=== PATIENT | female | born 1980 | race Caucasian/White ===

== ENCOUNTER 2020-04-29 09:38 | Outpatient (REF) | payer MEDICAID, SELFPAY | END 2020-04-29 09:39 | disposition home or self-care (01) | LOC: HO.LAB 09:38 | PROVIDERS: Visit Provider Internal Medicine | DX: Z20.822 Contact with and (suspected) exposure to COVID-19 (principal) | CPT/HCPCS: 36415; C9803; U0003; U0005 ==

== ENCOUNTER 2022-07-26 05:58 | Inpatient (IN) | payer MEDICAID, SELFPAY ==
[2022-07-26] VITALS (9 sets, daily range): BP systolic 110–200; BP diastolic 58–112; PULSE 64–144; RESP 12–20; TEMP 36.4–36.9; O2SAT 96–100; BMI 31.6
--- NOTE | 2022-07-26 | ECG_ITS ---
Test Reason : PREVIOUS WITH PROLONGED QTC AND T-WAVE INVERSION Blood Pressure : / mmHG Vent. Rate : 071 BPM Atrial Rate : 071 BPM P-R Int : 148 ms QRS Dur : 088 ms QT Int : 452 ms P-R-T Axes : 062 059 041 degrees QTc Int : 491 ms Normal sinus rhythm with sinus arrhythmia Nonspecific ST abnormality Prolonged QT Abnormal ECG When compared with ECG of 26-JUL-2022 07:19, Nonspecific T wave abnormality no longer evident in Lateral leads Referred By: Alex Gilbert Electronically Signed By:Rolan Arthur
[2022-07-26] MEDS: 0.9 % Sodium Chloride 1,000 ML 999 ML IV (06:30)
[2022-07-26] MEDS: ondansetron HCL 4 MG/2 ML VIAL IVPUSH (06:30)
--- NOTE | 2022-07-26 06:31 | PC.NURSE ---
Addendum entered by Perfecto Smart RN 07/26/22 06:34: Pt endorses IVDU with last heroin use around midnight, 2 bags. Denies marijuana use. 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 Original Note: Assumed care of pt. Pt transfered to stretcher under own power. IV established, no labs could be drawn, but flushes well. Medications ordered per MD and administered. Plan for MD assessment and further orders. Pt lying on stretcher, improved nausea with medication and fluids. WCTM.
--- NOTE | 2022-07-26 06:40 | ED_ITS ---
HPI - General Adult General Chief complaint: Abdominal Pain Stated complaint: abd pain Time Seen by Provider: 07/26/22 06:34 Source: patient and EMS Mode of arrival: EMS Limitations: no limitations History of Present Illness HPI narrative: Patient is a 42 year old assigned female at with a history of IV drug use, alcohol abuse, and recent UTI presenting to the emergency department today with nausea and vomiting. Patient states that she last used heroin 5 hours ago and has been vomiting for awhile since. Patient states that she was given antibiotics for her UTI at [facility] and she finished them but she is unsure what they were or when she would have finished them. Patient states that she is having epigastric pain that started after she began vomiting. Patient denies any dizziness, lightheadedness, fever, chills, blurry vision, double vision, loss of vision, chest pain, difficulty breathing, shortness of breath, back pain, night sweats, pain with urination, increased urinary frequency, increased urinary urgency, blood in her urine or stool, syncope or a near syncopal episode, recent trauma or falls, bowel incontinence, bladder incontinence, bowel retention, bladder retention, or any other complaints at this time. Onset (ago): hour(s) Location: abdomen Radiation: non-radiation Severity: mild Severity scale (1-10): 3 Quality: aching and dull Pain Consistency: constant Relieving factors: none Exacerbating factors: none Associated symptoms: nausea/vomiting Treatments prior to arrival: other (ABX) Related Data Home Medications Medication Instructions Recorded Confirmed acamprosate 333 mg tablet,delayed 666 mg PO BID 07/26/22 07/26/22 release clonidine HCl 0.2 mg tablet 0.2 mg PO BID 07/26/22 07/26/22 omeprazole 20 mg capsule,delayed 20 mg PO DAILY@0630 07/26/22 07/26/22 release ondansetron 4 mg disintegrating 4 mg PO Q8H PRN nausea 07/26/22 07/26/22 tablet sucralfate 100 mg/mL oral 10 ml PO Q6H PRN Nausea 07/26/22 07/26/22 suspension (Carafate) Allergies Allergy/AdvReac Type Severity Reaction Status Date / Time No Known Allergies Allergy Unverified 11/05/19 14:41 Review of Systems Constitutional: Constitutional: Reports no additional constitutional complaints, Denies chills, Denies fever(s) and Denies night sweats Eyes: Eyes: Reports no additional eye complaints, Denies blurry vision, Denies change in vision, Denies diplopia, Denies eye discharge, Denies loss of vision and Denies eye pain ENT: Denies dizziness Cardiovascular: Cardiovascular: Reports no additional cardiovascular complaints, Denies chest pain, Denies lightheadedness, Denies Loss of Consciousness and Denies dyspnea Respiratory: Respiratory: Reports no additional respiratory complaints and Denies dyspnea Gastrointestinal: Gastrointestinal: Reports no additional gastrointestinal complaints, Reports abdominal pain, Denies melena, Denies hematochezia, Denies change in bowel habits, Denies change in stool character, Reports vomiting and Denies hematemesis Genitourinary: Genitourinary: Denies hematuria, Denies urinary frequency, Denies dysuria, Denies urinary incontinence, Denies urinary hesitancy and Denies urinary urgency Musculoskeletal: Musculoskeletal: Reports no additional musculoskeletal complaints, Denies numbness and Denies tingling Neurologic: Denies dizziness, Denies loss of vision, Denies numbness and Denies tingling Psychiatric: Psychiatric: Reports no additional psychiatric complaints Endocrine: Endocrine: Reports no additional endocrine complaints Hematologic/Lymphatic: Hematologic/Lymphatic: Reports no additional hematologic/lymphatic complaints Allergic/Immunologic: Allergic/Immunologic: Reports no additional allergic/immunologic complaints PMFSH Past Medical History Attestation statement: The following information was validated with the patient. Source: old records reviewed and nursing notes reviewed Social History Social History Alcohol intake: current Alcohol intake frequency: 3 or more drinks per day Alcohol type: hard liquor Smoked in Last 30 Days: Yes Use of substances other than those prescribed or required for medical reasons: Yes Substance Use Type: Crack/Cocaine and Heroin Substance Use Frequency: Chronic Longstanding Advance Directives: No Advance Directives Information Provided: No Patient : No Physical Exam ED Vital Signs: Vital Signs - 24 hr 07/26/22 06:02 07/26/22 07:04 Temperature 98.2 F Pulse Rate 86 64 Respiratory Rate 18 14 Blood Pressure 143/77 H 156/72 H Pulse Oximetry 100 96 Oxygen Delivery Method Room Air Room Air BMI result Body Mass Index 31.6 Const General: cooperative, no acute distress, alert and awake Nutritional Appearance: well nourished Orientation/consciousness: patient oriented x3 Limitations: no limitations HENMT Head: Yes normal to inspection and Yes atraumatic Ears: hearing grossly normal bilaterally and external ears normal General nose exam: Normal external nose present, no nasal discharge noted and no epistaxis Face and sinus: Yes normal facial exam, No abrasion and No laceration Mouth: Normal oral and palatal mucosa present, no drooling and no muffled voice Eyes General: appearance normal, both eyes and all related structures Periorbital: periorbital findings normal Eyelids: Yes eyelids normal Conjunctivae: conjunctivae normal Pupils: Equal, round and reactive pupils present EOM: EOMs intact bilaterally Neck Neck: Yes normal visual inspection, Yes full ROM and Yes no lymphadenopathy Chest Chest palpation & inspection: normal inspection of the chest Resp Effort & Inspection: normal respiratory effort and able to speak in complete sentences Cardio Rate: regular rate Rhythm: regular rhythm GI Inspection: Yes normal to inspection Palpation (GI): Soft to palpation, not firm, nontender and no guarding Neuro General: patient oriented x3 and moves all extremities Cranial nerves: Yes Equal, round and reactive pupils present Cognition (Neuro): normal cognition Motor exam (neuro): 5/5 motor strength present throughout Sensory Exam: Normal double simultaneous stimulation for sensation Coordination: [id number] test normal Extrem Other: bilateral arms have various bruising in various stages of heeling and track fuentes General: Yes full ROM and Yes capillary refill normal Psych Appearance: grossly normal Mental Status: mental status grossly normal Affect: normal affect Attitude: cooperative Thought process: Normal thought process present Thought content: Normal thought content present Insight: Good insight present (Psych) Medications Administered Generic Name Dose Route Start Last Admin Trade Name Jessika PRN Reason Stop Dose Admin Clonidine HCl 0.2 mg 07/26/22 12:30 07/26/22 13:06 Clonidine Hcl 0.2 Mg Tablet PO 0.2 mg BID JESÚS Administration Protocol Enoxaparin Sodium 40 mg 07/26/22 12:00 07/26/22 13:06 Enoxaparin Sodium 40 Mg/0.4 Ml Syringe SUBCUT 40 mg Q24H JESÚS Administration Folic Acid 1 mg 07/26/22 12:05 07/26/22 13:06 Folic Acid 1 Mg Tablet PO 07/29/22 12:04 1 mg DAILY JESÚS Administration Morphine Sulfate 4 mg 07/26/22 11:57 07/26/22 13:01 Morphine Sulfate 4 Mg/Ml Cartridge IVPUSH 4 mg Q4H PRN Administration Pain, Severe (Pain Scale 7-10) Protocol Multivitamins/Vitamin C 1 tab 07/26/22 12:05 07/26/22 13:06 Multivitamin Tablet PO 07/29/22 12:04 1 tab DAILY JESÚS Administration Thiamine HCl 100 mg 07/26/22 12:05 07/26/22 13:06 Thiamine Hcl 100 Mg Tablet PO 07/29/22 12:04 100 mg DAILY JESÚS Administration Discontinued Medications Generic Name Dose Route Start Last Admin Trade Name Freq PRN Reason Stop Dose Admin Sodium Chloride 1,000 mls @ 999 mls/hr 07/26/22 06:30 07/26/22 07:48 Ns IV 07/26/22 07:30 Infused .Q1H1M JESÚS Infusion Magnesium Sulfate 2 gm in 50 mls @ 25 mls/hr 07/26/22 07:13 07/26/22 10:18 Magnesium Sulfate/H2o IV 07/26/22 09:12 Infused ONCE ONE Infusion Potassium Chloride 10 meq in 100 mls @ 100 mls/hr 07/26/22 07:30 07/26/22 12:26 Potassium Chloride/H20 IV 07/26/22 11:29 100 mls/hr Q1H JESÚS Administration Lorazepam 2 mg 07/26/22 06:41 07/26/22 06:46 Lorazepam 2 Mg/Ml Vial IVPUSH 07/26/22 06:42 2 mg ONCE ONE Administration Ondansetron HCl 4 mg 07/26/22 06:17 07/26/22 06:30 Ondansetron Hcl 4 Mg/2 Ml Vial IVPUSH 07/26/22 06:18 4 mg ONCE ONE Administration Pantoprazole Sodium 40 mg 07/26/22 08:09 07/26/22 08:26 Pantoprazole Sodium 40 Mg/10 Ml Vial IVPUSH 07/26/22 08:10 40 mg ONCE ONE Administration Medical Decision Making Medical Decision Making MDM Narrative: Patient is a 42 year old assigned female at with a history of IV drug use and alcohol use presenting to the emergency department today with epigastric pain, nausea and vomiting. Patient's physical exam was as noted in the physical exam portion of this chart. Patient's blood work showed hypokalemia at 2.8 and hypomagensemia of 1.1. Patient's urine showed no acute process. Patient's EKG showed new QT prolongation. I spoke to the hospitalist who agreed to admission. Patient was given IV magnesium and IV potassium. I explained my physical exam findings as well as all test results to the patient. I answered all questions asked by the patient. Patient verbalized agreement and understanding with this treatment plan and admission. Differential Diagnosis Differential Diagnoses: The differential diagnosis associated with the presentation includes drug use, alcohol abuse, hypomagnesemia, hypokalemia Admission/Observation Consideration of admission/observation: Escalation of care including admission/observation considered This patient is being admitted to the hospital. Consult Healthcare Provider Management of the patient was discussed with: Hospitalist (Agreed to admission.) Lab Data [facility] Lab Attestation statement: I reviewed the patient's lab results. My interpretation of these studies and their corresponding values is detailed in the [facility] portion of this chart. 07/26/22 06:41 07/26/22 06:41 Labs: Lab Results 07/26/22 07/26/22 07/26/22 Range/Units 06:41 06:41 06:41 WBC 5.8 (4.8-10.8) X10*3/uL RBC 2.38 L (4.20-5.50) X10*6/uL Hgb 10.3 L (12.0-16.0) g/dl Hct 28.7 L (37.0-47.0) % MCV 120.6 H (80.0-98.0) fL MCH 43.3 H (27.0-33.0) pg MCHC 35.9 H (31.0-35.0) g/dl RDW 13.9 (11.0-16.0) % Plt Count 195 (160-400) X10*3/uL MPV 9.7 (9.4-12.3) fL Immature Gran % (Auto) 0.7 H (0.0-0.4) % Neut % (Auto) 66.7 (45-73) % Lymph % (Auto) 25.0 (20-40) % [place] % (Auto) 7.1 (2-11) % Eos % (Auto) 0.3 (0-4) % Baso % (Auto) 0.2 (0-2) % Lymph # (Auto) 1.4 (1.2-4.9) X10*3/uL [place] # (Auto) 0.4 (0.1-1.2) X10*3/uL Eos # (Auto) 0.0 (0.0-0.4) X10*3/uL Baso # (Auto) 0.0 (0.0-0.2) X10*3/uL Abs Immat Gran (auto) 0.04 H (0.00-0.03) X10*3/uL Absolute Neuts (auto) 3.8 (2.0-8.3) x10*3/uL Absolute Nucleated RBC 0.000 (0.0-0.012) X10*3/uL Nucleated RBC % (auto) 0.0 (0.0-0.2) /100WBC Sodium 138 (135-145) mmol/L Potassium 2.8 L (3.3-5.1) mmol/L Chloride 97 (96-108) mmol/L Carbon Dioxide 27 (22-29) mmol/L Anion Gap 17 (12-20) BUN 11 (9-16) mg/dL Creatinine 0.79 (0.5-1.4) mg/dL Estim Creat Clear Calc 97.9 Estimated GFR > 60 Random Glucose 124 H (60-115) mg/dL Calcium 9.4 (8.4-10.2) mg/dL Magnesium 1.1 L* (1.6-2.6) mg/dL Total Bilirubin 1.4 H (0.0-1.0) mg/dL Direct Bilirubin 0.7 H (0.0-0.5) mg/dL AST 25 (5-31) U/L ALT 11 (0-31) U/L Alkaline Phosphatase 94 (39-117) U/L Troponin I High Sens (<3.5-17.0) ng/L B-Natriuretic Peptide 13 (<100) pg/mL Total Protein 7.5 (6.5-8.0) g/dL Albumin 3.5 (3.5-5.0) g/dL Lipase 17 (8-78) U/L Vitamin B12 377 (200-900) pg/mL Folate 2.3 L (> or = 4.0) ng/mL Beta HCG, Quant < 2 mIU/mL Urine Color Urine Appearance Urine pH (5.0-9.0) Ur Specific [place] (1.005-1.025) Urine Protein (Neg-Trace) mg/dL Urine Glucose (UA) (Negative) mg/dL Urine Ketones (Negative) mg/dL Urine Blood (Negative) Urine Nitrite (Negative) Ur Leukocyte Esterase (Negative) Urine RBC (0-2) /HPF Urine WBC (0-5) /HPF Ur Squamous Epith Cells (0-2) /HPF Urine Bacteria (None Seen) Hyaline Casts (0-2) /LPF Urine Test (NEGATIVE) Urine Opiates Screen (Not Detect) Urine Fentanyl Screen (Not Detect) Ur Barbiturates Screen (Not Detect) Ur Phencyclidine Scrn (Not Detect) Ur Amphetamines Screen (Not Detect) U Benzodiazepines Scrn (Not Detect) Urine Cocaine Screen (Not Detect) U Marijuana (THC) Screen (Not Detect) Ethyl Alcohol < 10 mg/dL 07/26/22 07/26/22 07/26/22 Range/Units 08:27 08:27 08:27 WBC (4.8-10.8) X10*3/uL RBC (4.20-5.50) X10*6/uL Hgb (12.0-16.0) g/dl Hct (37.0-47.0) % MCV (80.0-98.0) fL MCH (27.0-33.0) pg MCHC (31.0-35.0) g/dl RDW (11.0-16.0) % Plt Count (160-400) X10*3/uL MPV (9.4-12.3) fL Immature Gran % (Auto) (0.0-0.4) % Neut % (Auto) (45-73) % Lymph % (Auto) (20-40) % [place] % (Auto) (2-11) % Eos % (Auto) (0-4) % Baso % (Auto) (0-2) % Lymph # (Auto) (1.2-4.9) X10*3/uL [place] # (Auto) (0.1-1.2) X10*3/uL Eos # (Auto) (0.0-0.4) X10*3/uL Baso # (Auto) (0.0-0.2) X10*3/uL Abs Immat Gran (auto) (0.00-0.03) X10*3/uL Absolute Neuts (auto) (2.0-8.3) x10*3/uL Absolute Nucleated RBC (0.0-0.012) X10*3/uL Nucleated RBC % (auto) (0.0-0.2) /100WBC Sodium (135-145) mmol/L Potassium (3.3-5.1) mmol/L Chloride (96-108) mmol/L Carbon Dioxide (22-29) mmol/L Anion Gap (12-20) BUN (9-16) mg/dL Creatinine (0.5-1.4) mg/dL Estim Creat Clear Calc Estimated GFR Random Glucose (60-115) mg/dL Calcium (8.4-10.2) mg/dL Magnesium (1.6-2.6) mg/dL Total Bilirubin (0.0-1.0) mg/dL Direct Bilirubin (0.0-0.5) mg/dL AST (5-31) U/L ALT (0-31) U/L Alkaline Phosphatase (39-117) U/L Troponin I High Sens (<3.5-17.0) ng/L B-Natriuretic Peptide (<100) pg/mL Total Protein (6.5-8.0) g/dL Albumin (3.5-5.0) g/dL Lipase (8-78) U/L Vitamin B12 (200-900) pg/mL Folate (> or = 4.0) ng/mL Beta HCG, Quant mIU/mL Urine Color Dark Yellow Urine Appearance Clear Urine pH 6.0 (5.0-9.0) Ur Specific [place] 1.025 (1.005-1.025) Urine Protein Trace (Neg-Trace) mg/dL Urine Glucose (UA) Negative (Negative) mg/dL Urine Ketones 15 (Negative) mg/dL Urine Blood Moderate (2+) H (Negative) Urine Nitrite Positive H (Negative) Ur Leukocyte Esterase Small (1+) H (Negative) Urine RBC 3-5 H (0-2) /HPF Urine WBC 0-5 (0-5) /HPF Ur Squamous Epith Cells 6-10 (0-2) /HPF Urine Bacteria 1+ (None Seen) Hyaline Casts 3-5 (0-2) /LPF Urine Test NEGATIVE (NEGATIVE) Urine Opiates Screen POSITIVE H (Not Detect) Urine Fentanyl Screen POSITIVE H (Not Detect) Ur Barbiturates Screen Not Detected (Not Detect) Ur Phencyclidine Scrn Not Detected (Not Detect) Ur Amphetamines Screen Not Detected (Not Detect) U Benzodiazepines Scrn Not Detected (Not Detect) Urine Cocaine Screen POSITIVE H (Not Detect) U Marijuana (THC) Screen Not Detected (Not Detect) Ethyl Alcohol mg/dL 07/26/22 Range/Units 09:44 WBC (4.8-10.8) X10*3/uL RBC (4.20-5.50) X10*6/uL Hgb (12.0-16.0) g/dl Hct (37.0-47.0) % MCV (80.0-98.0) fL MCH (27.0-33.0) pg MCHC (31.0-35.0) g/dl RDW (11.0-16.0) % Plt Count (160-400) X10*3/uL MPV (9.4-12.3) fL Immature Gran % (Auto) (0.0-0.4) % Neut % (Auto) (45-73) % Lymph % (Auto) (20-40) % [place] % (Auto) (2-11) % Eos % (Auto) (0-4) % Baso % (Auto) (0-2) % Lymph # (Auto) (1.2-4.9) X10*3/uL [place] # (Auto) (0.1-1.2) X10*3/uL Eos # (Auto) (0.0-0.4) X10*3/uL Baso # (Auto) (0.0-0.2) X10*3/uL Abs Immat Gran (auto) (0.00-0.03) X10*3/uL Absolute Neuts (auto) (2.0-8.3) x10*3/uL Absolute Nucleated RBC (0.0-0.012) X10*3/uL Nucleated RBC % (auto) (0.0-0.2) /100WBC Sodium (135-145) mmol/L Potassium (3.3-5.1) mmol/L Chloride (96-108) mmol/L Carbon Dioxide (22-29) mmol/L Anion Gap (12-20) BUN (9-16) mg/dL Creatinine (0.5-1.4) mg/dL Estim Creat Clear Calc Estimated GFR Random Glucose (60-115) mg/dL Calcium (8.4-10.2) mg/dL Magnesium (1.6-2.6) mg/dL Total Bilirubin (0.0-1.0) mg/dL Direct Bilirubin (0.0-0.5) mg/dL AST (5-31) U/L ALT (0-31) U/L Alkaline Phosphatase (39-117) U/L Troponin I High Sens < 2.7 (<3.5-17.0) ng/L B-Natriuretic Peptide (<100) pg/mL Total Protein (6.5-8.0) g/dL Albumin (3.5-5.0) g/dL Lipase (8-78) U/L Vitamin B12 (200-900) pg/mL Folate (> or = 4.0) ng/mL Beta HCG, Quant mIU/mL Urine Color Urine Appearance Urine pH (5.0-9.0) Ur Specific [place] (1.005-1.025) Urine Protein (Neg-Trace) mg/dL Urine Glucose (UA) (Negative) mg/dL Urine Ketones (Negative) mg/dL Urine Blood (Negative) Urine Nitrite (Negative) Ur Leukocyte Esterase (Negative) Urine RBC (0-2) /HPF Urine WBC (0-5) /HPF Ur Squamous Epith Cells (0-2) /HPF Urine Bacteria (None Seen) Hyaline Casts (0-2) /LPF Urine Test (NEGATIVE) Urine Opiates Screen (Not Detect) Urine Fentanyl Screen (Not Detect) Ur Barbiturates Screen (Not Detect) Ur Phencyclidine Scrn (Not Detect) Ur Amphetamines Screen (Not Detect) U Benzodiazepines Scrn (Not Detect) Urine Cocaine Screen (Not Detect) U Marijuana (THC) Screen (Not Detect) Ethyl Alcohol mg/dL Independent Interpretation I performed an independent interpretation of an: EKG Interpretation: Vent. Rate: 078 BPM ? ? Atrial Rate: 078 BPM P-R Int: 142 ms? QRS Dur: 092 ms QT Int: 450 ms ? ? ? P-R-T Axes: 053 046 021 degrees QTc Int: 513 ms ? Normal sinus rhythm with sinus arrhythmia Cannot rule out Inferior infarct , age undetermined Prolonged QT Abnormal ECG When compared with ECG of 13-MAR-2018 14:49, T wave inversion now evident in Inferior leads Nonspecific T wave abnormality now evident in Anterolateral leads QT has lengthened DD/ [id number] Independent Historian Clinical information obtained from an independent historian. History obtained from or confirmed by: EMS (EMS provided additional history and confirmed the history provided by the patient.) Chronic Conditions Patient?s care impacted by: Other (alcoholism, IV drug use) Critical Care Time Critical Care Time Critical Care Time: Yes Total Critical Care Time: 30 Attestation: I spent 30 minutes of Critical Care Time with this patient. This does not include time spent on separately reported billable procedures. Discharge Plan Discharge Clinical Impression: Hypokalemia, Hypomagnesemia, QT prolongation Patient Disposition: Admitted As Inpatient
[2022-07-26 06:45] LABS: MANUAL DIFF FLAG NO
[2022-07-26] MEDS: LORazepam 2 MG/ML VIAL IVPUSH (06:46)
[2022-07-26 07:10] LABS: Alanine Aminotransferase 11 U/L (0-31); Albumin Level 3.5 g/dL (3.5-5.0); Alkaline Phosphatase 94 U/L (39-117); Anion Gap 17 (12-20); Aspartate Amino Transferase 25 U/L (5-31); Bilirubin Direct 0.7 mg/dL (0.0-0.5); Bilirubin Total 1.4 mg/dL (0.0-1.0); Blood Urea Nitrogen 11 mg/dL (9-16); Calcium 9.4 mg/dL (8.4-10.2); Carbon Dioxide 27 mmol/L (22-29); Chloride 97 mmol/L (96-108); Creatinine Clr Calc Pharmacy 97.9; Estimated Glomerular Filt Rate > 60; Ethanol < 10 mg/dL; Glucose Random 124 mg/dL (60-115); Lipase 17 U/L (8-78); Potassium 2.8 mmol/L (3.3-5.1); Sodium 138 mmol/L (135-145); Total Protein 7.5 g/dL (6.5-8.0)
[2022-07-26 07:13] LABS: Magnesium 1.1 mg/dL (1.6-2.6)
--- NOTE | 2022-07-26 07:13 | ECG_ITS ---
Test Reason : hypomag Blood Pressure : / mmHG Vent. Rate : 078 BPM Atrial Rate : 078 BPM P-R Int : 142 ms QRS Dur : 092 ms QT Int : 450 ms P-R-T Axes : 053 046 021 degrees QTc Int : 513 ms Normal sinus rhythm with sinus arrhythmia Anterolateral ST depressions- consider [place] Prolonged QT Abnormal ECG When compared with ECG of 13-MAR-2018 14:49, Anterolateral ischemic appearing changes QT has lengthened Referred By: Nat Dougherty Electronically Signed By:Rolan Arthur
[2022-07-26 07:30] LABS: Basophils Percent Auto 0.2 % (0-2); Eosinophils Percent Auto 0.3 % (0-4); Hematocrit 28.7 % (37.0-47.0); Hemoglobin 10.3 g/dl (12.0-16.0); Imm Gran Abs Auto 0.04 X10*3/uL (0.00-0.03); Imm Gran Pct Auto 0.7 % (0.0-0.4); Lymphocytes Absolute Auto 1.4 X10*3/uL (1.2-4.9); Mean Corpuscular HGB Conc 35.9 g/dl (31.0-35.0); Mean Corpuscular Hemoglobin 43.3 pg (27.0-33.0); Mean Platelet Volume 9.7 fL (9.4-12.3); Monocytes Absolute Auto 0.4 X10*3/uL (0.1-1.2); Monocytes Percent Auto 7.1 % (2-11); Neutrophils Absolute Auto 3.8 x10*3/uL (2.0-8.3); Neutrophils Percent Auto 66.7 % (45-73); Platelet Count 195 X10*3/uL (160-400); Red Blood Count 2.38 X10*6/uL (4.20-5.50); Red Cell Distribution Width 13.9 % (11.0-16.0); White Blood Count 5.8 X10*3/uL (4.8-10.8)
[2022-07-26 07:39] LABS: Mean Corpuscular Volume 120.6 fL (80.0-98.0)
[2022-07-26] MEDS: Magnesium Sulfate/H2O 2 GM/50 ML PIGGYBACK IV ×2 (07:46→13:36)
[2022-07-26] MEDS: Pantoprazole Sodium 40 MG/10 ML VIAL IVPUSH ×2 (08:26→16:57)
[2022-07-26] MEDS: Potassium Chloride/H20 10 MEQ/100 ML PIGGYBACK 100 MEQ IV ×4 (08:27→12:26)
[2022-07-26 08:28] LABS: HCG Quantitative < 2 mIU/mL
[2022-07-26 08:50] LABS: Amphetamine Screen Urine Not Detected (Not Detect); Barbiturates, Urine Not Detected (Not Detect); Benzodiazepines Screen Urine Not Detected (Not Detect); Cannabinoid Screen Urine Not Detected (Not Detect); Cocaine Screen Urine POSITIVE (Not Detect); Fentanyl, urine POSITIVE (Not Detect); Opiate Screen Urine POSITIVE (Not Detect); Phencyclidine Screen Urine Not Detected (Not Detect)
[2022-07-26 09:18] LABS: Appearance Urine Clear; Color Urine Dark Yellow; Glucose Urine UA Negative (Negative); Leukocyte Esterase Urine Small (1+) (Negative); Nitrite Urine Positive (Negative); Specific Gravity - Urine 1.025 (1.005-1.025); UMIC TRIGGER UACC YES; Urine Blood Moderate (2+) (Negative); Urine Ketones 15 mg/dL (Negative); Urine Protein Trace mg/dL (Neg-Trace)
[2022-07-26 09:19] LABS: UPreg QC Valid YES; Urine Pregnancy NEGATIVE (NEGATIVE)
[2022-07-26 09:35] LABS: Bacteria Urine 1+ (None Seen); UACC Culture Trigger YES; WBC Urine 0-5 /HPF (0-5)
--- NOTE | 2022-07-26 09:55 | PHA.MEDREC ---
Pharmacy Consult ? Medication Reconciliation Pharmacy has completed the medication reconciliation Spoke to patient to confirm meds. Patient states they do not take thiamine, multivitamins, or folic acid. Carafate PRN.
[2022-07-26 10:06] LABS: B Type Natriuretic Peptide 13 pg/mL (<100)
[2022-07-26 10:12] LABS: Troponin-I High Sensitivity < 2.7 ng/L (<3.5-17.0)
--- NOTE | 2022-07-26 11:16 | P.HPHOSP_ITS ---
History of Present Illness Date of Service: 07/26/22 Attending physician on admission: Trey Cook Chief Complaint: Abdominal pain Pt is a 42-year-old female with a PMH significant for?IVDU and alcohol use disorder who presents to the ED with?vomiting and abdominal pain since last Saturday 11 days ago. Pt states has been unable to eat or drink anything during this time. Any p.o. intake triggers vomiting though vomiting can also occur at other times. Abdominal pain located in the center of her chest. Describes it as sharp, shooting, 10/10, and usually non-radiating, though sometimes to her back. Endorses chills. Pt notes occasional shortness of breath when abdominal pain is severe. States has 1 episode of diarrhea last Saturday and has had no bowel movement since. Pt initially presented to [facility] who diagnosed her with a UTI and discharged her with oral antibiotics. Pt does not know what medication she was prescribed but states she has been compliant with this prescription. Patient states she has during 2 pt of alcohol daily for the past 10 years straight, though has had no alcohol since last Saturday 6 days ago. Patient also a daily IVDU of 6+ bags heroin with injection sites in her forearms. Last used last night sometime between 10pm-midnight. In the ED patient was afebrile but slightly hypertensive 156/72. Labs were significant for macrocytic anemia of 10.3/28.7 with MCV of 120.6, potassium of 2.8, magnesium 1.1, direct bilirubin 1.4. Renal function WNL. Troponin and BNP negative. Lipase WNL. UA positive for UTI, possibly contaminated. EKG demonstrated normal sinus rhythm with prolonged QTc of 513 and T-wave inversions in inferior leads and T-wave abnormality in anterior lateral leads. Pt was treated with ondansetron, aggressive IVF, lorazepam, Protonix IV, and Mag sulfate 2 g IV. Pt will be admitted to the hospital for treatment of electrolyte abnormalities and intractable nausea and vomiting. Review of Systems Review of Systems: Nausea, vomiting Epigastric abdominal pain Shortness of breath Yes all other systems are reviewed and are negative [facility] Social History Alcohol intake: current Alcohol intake frequency: 3 or more drinks per day Alcohol type: hard liquor Smoked in Last 30 Days: Yes Use of substances other than those prescribed or required for medical reasons: Yes Substance Use Type: Crack/Cocaine and Heroin Substance Use Frequency: Chronic Longstanding Advance Directives: No Advance Directives Information Provided: No Patient : No Meds Allergies Allergy/AdvReac Type Severity Reaction Status Date / Time No Known Allergies Allergy Unverified 11/05/19 14:41 Active Medications: Current Medications Potassium Chloride (Potassium Chloride/H20) 10 meq in 100 mls @ 100 mls/hr IV Q1H JESÚS Stop: 07/26/22 11:29 Last Admin: 07/26/22 10:18 Dose: 100 mls/hr Pharmacy Consult (Consult Rx Perform Med Rec) 1 each MISCELLANE ONCE PRN PRN Reason: Consult order Home Medications Medication Instructions Recorded Confirmed Last Taken Type acamprosate 333 mg tablet,delayed 666 mg PO BID 07/26/22 07/26/22 07/25/22 Histo ry release clonidine HCl 0.2 mg tablet 0.2 mg PO BID 07/26/22 07/26/22 07/25/22 History omeprazole 20 mg capsule,delayed 20 mg PO DAILY@0630 07/26/22 07/26/22 07/25/22 History release ondansetron 4 mg disintegrating 4 mg PO Q8H PRN nausea 07/26/22 07/26/22 Unknown History tablet sucralfate 100 mg/mL oral 10 ml PO Q6H PRN Nausea 07/26/22 07/26/22 Unknown History suspension (Carafate) Physical Exam Vital Signs and Narrative: Vital Signs: Last Vital Signs Temp 98.2 F 07/26/22 07:04 Pulse 64 07/26/22 07:04 Resp 14 07/26/22 07:04 BP 156/72 H 07/26/22 07:04 Pulse Ox 96 07/26/22 07:04 O2 Del Method Room Air 07/26/22 07:04 BMI result Body Mass Index 31.6 Constitutional: Alert, uncomfortable looking, restless, in no acute distress. Mental Status: Oriented to person, place and time. Eyes: Pupils are equal, round, and reactive to light. Ear, Nose, and Throat: Oropharynx clear, mucous membranes moist. Ears and nose without deformities. Trachea midline. Respiratory: Clear to auscultation bilaterally. No wheezing, rales, or rhonchi. Cardiovascular: S1, S2 regular. No murmurs, rubs, or gallops. Gastrointestinal: Abdomen soft, non-distended, tender in epigastric region. Normal bowel sounds. Neurologic: Cranial nerves II-XII are grossly intact bilaterally. No focal neurological deficits. Moves all extremities spontaneously. Skin: Multiple bruises and injection sites on forearms bilaterally. No signs of infection. Musculoskeletal: No cyanosis or clubbing. Extremities: No edema. Psychiatric: Restless, cooperative. Results Labs 07/26/22 06:41 07/26/22 06:41 Labs: Laboratory Results - last 24 hr 07/26/22 07/26/22 07/26/22 06:41 06:41 06:41 MCV 120.6 H MCH 43.3 H MCHC 35.9 H RDW 13.9 Plt Count 195 MPV 9.7 Immature Gran % (Auto) 0.7 H Neut % (Auto) 66.7 Lymph % (Auto) 25.0 [place] % (Auto) 7.1 Eos % (Auto) 0.3 Baso % (Auto) 0.2 Lymph # (Auto) 1.4 [place] # (Auto) 0.4 Eos # (Auto) 0.0 Baso # (Auto) 0.0 Abs Immat Gran (auto) 0.04 H Absolute Neuts (auto) 3.8 Absolute Nucleated RBC 0.000 Nucleated RBC % (auto) 0.0 Anion Gap 17 Estim Creat Clear Calc 97.9 Estimated GFR > 60 Random Glucose 124 H Calcium 9.4 Magnesium 1.1 L* Total Bilirubin 1.4 H Direct Bilirubin 0.7 H AST 25 ALT 11 Alkaline Phosphatase 94 Troponin I High Sens B-Natriuretic Peptide 13 Total Protein 7.5 Albumin 3.5 Lipase 17 Beta HCG, Quant < 2 Urine Color Urine Appearance Urine pH Ur Specific [place] Urine Protein Urine Glucose (UA) Urine Ketones Urine Blood Urine Nitrite Ur Leukocyte Esterase Urine RBC Urine WBC Ur Squamous Epith Cells Urine Bacteria Hyaline Casts Urine Test Urine Opiates Screen Urine Fentanyl Screen Ur Barbiturates Screen Ur Phencyclidine Scrn Ur Amphetamines Screen U Benzodiazepines Scrn Urine Cocaine Screen U Marijuana (THC) Screen Ethyl Alcohol < 10 07/26/22 07/26/22 07/26/22 08:27 08:27 08:27 MCV MCH MCHC RDW Plt Count MPV Immature Gran % (Auto) Neut % (Auto) Lymph % (Auto) [place] % (Auto) Eos % (Auto) Baso % (Auto) Lymph # (Auto) [place] # (Auto) Eos # (Auto) Baso # (Auto) Abs Immat Gran (auto) Absolute Neuts (auto) Absolute Nucleated RBC Nucleated RBC % (auto) Anion Gap Estim Creat Clear Calc Estimated GFR Random Glucose Calcium Magnesium Total Bilirubin Direct Bilirubin AST ALT Alkaline Phosphatase Troponin I High Sens B-Natriuretic Peptide Total Protein Albumin Lipase Beta HCG, Quant Urine Color Dark Yellow Urine Appearance Clear Urine pH 6.0 Ur Specific [place] 1.025 Urine Protein Trace Urine Glucose (UA) Negative Urine Ketones 15 Urine Blood Moderate (2+) H Urine Nitrite Positive H Ur Leukocyte Esterase Small (1+) H Urine RBC 3-5 H Urine WBC 0-5 Ur Squamous Epith Cells 6-10 Urine Bacteria 1+ Hyaline Casts 3-5 Urine Test NEGATIVE Urine Opiates Screen POSITIVE H Urine Fentanyl Screen POSITIVE H Ur Barbiturates Screen Not Detected Ur Phencyclidine Scrn Not Detected Ur Amphetamines Screen Not Detected U Benzodiazepines Scrn Not Detected Urine Cocaine Screen POSITIVE H U Marijuana (THC) Screen Not Detected Ethyl Alcohol 07/26/22 09:44 MCV MCH MCHC RDW Plt Count MPV Immature Gran % (Auto) Neut % (Auto) Lymph % (Auto) [place] % (Auto) Eos % (Auto) Baso % (Auto) Lymph # (Auto) [place] # (Auto) Eos # (Auto) Baso # (Auto) Abs Immat Gran (auto) Absolute Neuts (auto) Absolute Nucleated RBC Nucleated RBC % (auto) Anion Gap Estim Creat Clear Calc Estimated GFR Random Glucose Calcium Magnesium Total Bilirubin Direct Bilirubin AST ALT Alkaline Phosphatase Troponin I High Sens < 2.7 B-Natriuretic Peptide Total Protein Albumin Lipase Beta HCG, Quant Urine Color Urine Appearance Urine pH Ur Specific [place] Urine Protein Urine Glucose (UA) Urine Ketones Urine Blood Urine Nitrite Ur Leukocyte Esterase Urine RBC Urine WBC Ur Squamous Epith Cells Urine Bacteria Hyaline Casts Urine Test Urine Opiates Screen Urine Fentanyl Screen Ur Barbiturates Screen Ur Phencyclidine Scrn Ur Amphetamines Screen U Benzodiazepines Scrn Urine Cocaine Screen U Marijuana (THC) Screen Ethyl Alcohol Assessment and Plan (1) Hypokalemia: Status: Acute (2) Hypomagnesemia: Status: Acute (3) QT prolongation: Status: Acute Plan Pt is a 42-year-old female with a PMH significant for?IVDU, and alcohol use disorder who presents to the ED with?vomiting and abdominal pain since last Saturday 11 days ago. Pt states has been unable to eat or drink anything during this time. Any p.o. intake triggers vomiting though can also occur at other times. Pt will be admitted to the hospital for treatment of electrolyte abnormalities and intractable nausea and vomiting. Hypomagnesemia Magnesium 1.1 at time of admission Likely multifactorial: Secondary to GI losses, reduced p.o. intake, and alcohol use disorder Patient received Mag sulfate 2 g IV in ED Will give 2 g more of Mag sulfate IV Mag-ox 400 mg b.i.d. Follow BMP Monitor on telemetry Hypokalemia Potassium 2.8 Received 40 meq potassium chloride in ED Follow BMP Abdominal pain and vomiting Patient complains of vomiting with abdominal pain since last Saturday 11 days ago Patient reports she has been able to keep anything down by mouth either solids or liquids Pain is centrally located in the epigastric region, nonradiating Most likely secondary to alcoholic gastritis Metoclopramide p.r.n. for nausea and vomiting Continue sucralfate Morphine for pain Alcohol use disorder Patient says last drink was 6 days ago on last Saturday, normally drinks 2+ pints daily Daily multivitamin, folic acid 1mg, Thiamine 100 mg daily IV Protonix bid Follow lytes, Mag, BMP IVF: lactated ringers Continue acamprosate CIWA scale Addiction medicine consult Monitor on telemetry IVDU Patient with history of 6+ bags of heroin daily, last used last night at 22:00 to midnight Patient's arms with multiple injection sites, no signs of infection Morphine as bridge to methadone Addiction medicine consult Macrocytic anemia Patient's H&H 10.3/28.7, MCV 120.6 Most likely secondary to alcohol use disorder Will check B12, folate Supplement with thiamine, folic acid, multivitamin Follow CBC Prolonged QTc Patient's QTc prolonged at 512 Avoid QT prolonging agents Monitor on telemetry Full Code Attending:?Dr. Cook DVT Prophylaxis: Lovenox Pt will require a hospitalization of at least two nights for treatment of electrolyte abnormalities with IV replenishment and close monitoring. Time Spent With Patient Time: Total time managing care of this patient today ____ minutes. Quality Stroke Does the patient have a stroke diagnosis?: No VTE Prior VTE?: No VTE Risk Level:: Medical - moderate - high VTE Device Contraindication: Treatment Not Indicated VTE Drug Contraindication: N/A - Med Ordered
[2022-07-26 12:22] LABS: Folate 2.3 ng/mL (> or = 4.0); Vitamin B12 377 pg/mL (200-900)
[2022-07-26] MEDS: Morphine Sulfate 4 MG/ML CARTRIDGE IVPUSH ×3 (13:01→21:13)
[2022-07-26] MEDS: cloNIDine HCL 0.2 MG TABLET PO ×2 (13:06→21:14)
[2022-07-26] MEDS: Thiamine HCL 100 MG TABLET PO (13:06)
[2022-07-26] MEDS: Multivitamin TABLET 1 TAB PO (13:06)
[2022-07-26] MEDS: Enoxaparin Sodium 40 MG/0.4 ML SYRINGE SUBCUT (13:06)
[2022-07-26] MEDS: Folic Acid 1 MG TABLET PO (13:06)
[2022-07-26] MEDS: Metoclopramide HCl 10 MG/2 ML VIAL 5 MG IVPUSH ×2 (13:37→21:13)
[2022-07-26] MEDS: Lactated Ringers 1,000 ML 100 ML IVCONT (14:39)
--- NOTE | 2022-07-26 15:48 | MHC.EDTECH ---
THIS PCT ASSUMED CARE OF PT AT 1500 ,VITALS SIGN TAKEN ,PT SLEEPING .
--- NOTE | 2022-07-26 16:19 | PC.NURSE ---
pt has been sleeping for a few hours with no issues. nsr on monitor, resp even nonlaboured, slightly hypertensive, no effect with clonidine. stated significant improvement with epigastric pain after MOP admin.
[2022-07-26] MEDS: 0.9 % Sodium Chloride Flush 3 ML SYRINGE IVFLUSH ×2 (16:57→21:14)
[2022-07-26] MEDS: Nicotine 14 MG PATCH.TD24 TRANSDERMA (17:15)
--- NOTE | 2022-07-26 17:45 | MHC.CM.PN ---
Met with admitted patient with bed assignment pending. A&Ox4. Longstanding IVDA/alcohol use. Positive tox screen for opiates, fentanyl and cocaine. Last used yesterday. Lives with daughter, Taryn, who is 23. No DME/Services. Unemployed. No HCP on file. Declines to complete. D/C plan: Home without services. process coach to meet with patient. Pending addiction medicine consult. Might have friend to pick her up, may need a ride home. CM will follow for d/c planning.
--- NOTE | 2022-07-26 17:57 | MHC.RECOVSUP ---
? Reason for consult Recovery support o Current location: [id number] o Identified substance use concern: heroin/cocaine/alcohol - Withdrawal - Support ? Intervention: <del>o</del> <del>ATS</del> <del>bed</del> <del>search</del> <del>started/completed/in</del> <del>process</del> <del>o</del> <del>MAT</del> <del>started</del> <del>or</del> <del>to</del> <del>be</del> <del>started</del> <del>o</del> <del>Community</del> <del>resources</del> <del>provided</del> <del>o</del> <del>Harm</del> <del>reduction</del> <del>discussion</del> ? Plan: <del>o</del> <del>Referral</del> <del>to</del> <del>[facility]</del> <del>o</del> <del>Bed</del> <del>search</del> <del>in</del> <del>progress</del> <del>to</del> <del>o</del> <del>Follow</del> <del>up</del> <del>tomorrow</del> <del>o</del> <del>Patient</del> <del>awaiting</del> <del>crisis</del> <del>evaluation</del> <del>o</del> <del>Patient</del> <del>to</del> <del>follow</del> <del>up</del> <del>with</del> <del>[facility]</del> <del>after</del> <del>discharge</del> ? 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 Could Not talk about MAT..
--- NOTE | 2022-07-26 18:27 | PC.NURSE ---
pt has eaten a couple of items off her tray, c/o resurgent epigastric pain. instructed to limit intake to simple foods. report given to [facility] jeanmarie. abbey laura.
[2022-07-26] MEDS: Magnesium Oxide 400 MG TABLET PO (19:18)
[2022-07-26] MEDS: Labetalol HCL 100 MG/20 ML VIAL 10 MG IVPUSH (19:35)
[2022-07-26] MEDS: Acamprosate Calcium 333 MG TABLET.DR 666 MG PO (21:14)
[2022-07-27] VITALS: BP 112/53; PULSE 82; RESP 16; TEMP 37.4; O2SAT 93
[2022-07-27] MEDS: Lactated Ringers 1,000 ML 100 ML IVCONT (02:31)
[2022-07-27 03:01] VITALS: BP 128/58; PULSE 91; RESP 16; TEMP 36.4; O2SAT 92
[2022-07-27] MEDS: Morphine Sulfate 4 MG/ML CARTRIDGE IVPUSH (05:59)
[2022-07-27] MEDS: Pantoprazole Sodium 40 MG/10 ML VIAL IVPUSH (05:59)
[2022-07-27 06:01] LABS: Hematocrit 23.4 % (37.0-47.0); Hemoglobin 8.4 g/dl (12.0-16.0); Mean Corpuscular HGB Conc 35.9 g/dl (31.0-35.0); Mean Platelet Volume 9.2 fL (9.4-12.3); Platelet Count 183 X10*3/uL (160-400); Red Blood Count 1.91 X10*6/uL (4.20-5.50)
[2022-07-27 06:03] LABS: Mean Corpuscular Volume 122.5 fL (80.0-98.0)
[2022-07-27 06:18] LABS: Anion Gap 10 (12-20); Blood Urea Nitrogen 6 mg/dL (9-16); Calcium 8.7 mg/dL (8.4-10.2); Carbon Dioxide 30 mmol/L (22-29); Chloride 100 mmol/L (96-108); Creatinine Clr Calc Pharmacy 110.5; Estimated Glomerular Filt Rate > 60; Glucose Random 106 mg/dL (60-115); Magnesium 1.8 mg/dL (1.6-2.6); Potassium 2.7 mmol/L (3.3-5.1); Sodium 137 mmol/L (135-145)
--- NOTE | 2022-07-27 08:43 | PM.EVENT ---
Event Note Date of Service: 07/27/22 Event Note: Addiction consult placed. Patient seen very briefly on 07/26 while in ED. QTc prolonged, morphine ordered to address withdrawal sx. 0830 this morning went to meet with patient, per RN patient had recently eloped. Time Spent With Patient Time: Total time managing care of this patient today ____ minutes.
--- NOTE | 2022-07-27 08:59 | PM.DS ---
DS: Providers Provider Date of Service: 07/27/22 Date of admission: 07/26/22 11:57 Primary care physician: NATALIE Dangelo Consults: 07/26/22 11:57 Addiction Medicine Routine Consulting Provider: Addiction Covering Reason for consultation: IVDU, alcohol use disorder DS: Diagnosis Discharge Diagnosis (1) Hypokalemia: Status: Acute (2) Hypomagnesemia: Status: Acute (3) QT prolongation: Status: Acute DS: Summary Hospital Course Hospital Course: from initial hpi: 42-year-old female with a PMH significant for?IVDU and alcohol use disorder who presents to the ED with?vomiting and abdominal pain since last Saturday 11 days ago. Pt states has been unable to eat or drink anything during this time.? Any p.o. intake triggers vomiting though vomiting can also occur at other times. Abdominal pain located in the center of her chest. Describes it as sharp, shooting, 10/10, and usually non-radiating, though sometimes to her back.? Endorses chills.? Pt notes occasional shortness of breath when abdominal pain is severe.? States has 1 episode of diarrhea last Saturday and has had no bowel movement since. Pt initially presented to [facility] who diagnosed her with a UTI and discharged her with oral antibiotics. Pt does not know what medication she was prescribed but states she has been compliant with this prescription.? Patient states she has during 2 pt of alcohol daily for the past 10 years straight, though has had no alcohol since last Saturday 6 days ago.? Patient also a daily IVDU of 6+ bags heroin with injection sites in her forearms. Last used last night sometime between 10pm-midnight. In the ED patient was afebrile but slightly hypertensive 156/72. Labs were significant for macrocytic anemia of 10.3/28.7 with MCV of 120.6, potassium of 2.8, magnesium 1.1, direct bilirubin 1.4.? Renal function WNL.? Troponin and BNP negative.? Lipase WNL.? UA positive for UTI, possibly contaminated.? EKG demonstrated normal sinus rhythm with prolonged QTc of 513 and T-wave inversions in inferior leads and T-wave abnormality in anterior lateral leads. Pt was treated with ondansetron, aggressive IVF, lorazepam, Protonix IV, and Mag sulfate 2 g IV. Pt will be admitted to the hospital for treatment of electrolyte abnormalities and intractable nausea and vomiting. hospital course: patient was hypokalemia, hypomagensemia, etoh dependence, etoh gastritis, polysubastance dependence, qt prolongation. she eloped prior to me seeing her. Time Spent with Patient Time attestation: Total time managing care of this patient today ____ minutes. Discharge coordination time: Greater than 30 minutes Quality: Safe Use of Opioids Does Pt have an Active Cancer Diagnosis on the Problem List?: No Quality: Stroke Does the patient have a stroke diagnosis?: No Physical Exam Vital Signs: Vital Signs: Last Vital Signs Temp 97.5 F 07/27/22 03:01 Pulse 91 07/27/22 03:01 Resp 16 07/27/22 03:01 BP 128/58 L 07/27/22 03:01 Pulse Ox 92 07/27/22 03:01 O2 Del Method Room Air 07/27/22 03:01 BMI result Body Mass Index 31.6 DS: Data Data Completed and Pending Labs on day of discharge: Laboratory Results - last 24 hr 07/26/22 07/26/22 07/26/22 06:41 06:41 08:27 WBC RBC Hgb Hct MCV MCH MCHC RDW Plt Count MPV Absolute Nucleated RBC Nucleated RBC % (auto) Sodium Potassium Chloride Carbon Dioxide Anion Gap BUN Creatinine Estim Creat Clear Calc Estimated GFR Random Glucose Calcium Magnesium Troponin I High Sens B-Natriuretic Peptide 13 Vitamin B12 377 Folate 2.3 L Urine Color Dark Yellow Urine Appearance Clear Urine pH 6.0 Ur Specific [place] 1.025 Urine Protein Trace Urine Glucose (UA) Negative Urine Ketones 15 Urine Blood Moderate (2+) H Urine Nitrite Positive H Ur Leukocyte Esterase Small (1+) H Urine RBC 3-5 H Urine WBC 0-5 Ur Squamous Epith Cells 6-10 Urine Bacteria 1+ Hyaline Casts 3-5 Urine Test 07/26/22 07/26/22 07/27/22 08:27 09:44 05:36 WBC 6.0 RBC 1.91 L Hgb 8.4 L Hct 23.4 L MCV 122.5 H MCH 44.0 H MCHC 35.9 H RDW 14.0 Plt Count 183 MPV 9.2 L Absolute Nucleated RBC 0.000 Nucleated RBC % (auto) 0.0 Sodium Potassium Chloride Carbon Dioxide Anion Gap BUN Creatinine Estim Creat Clear Calc Estimated GFR Random Glucose Calcium Magnesium Troponin I High Sens < 2.7 B-Natriuretic Peptide Vitamin B12 Folate Urine Color Urine Appearance Urine pH Ur Specific [place] Urine Protein Urine Glucose (UA) Urine Ketones Urine Blood Urine Nitrite Ur Leukocyte Esterase Urine RBC Urine WBC Ur Squamous Epith Cells Urine Bacteria Hyaline Casts Urine Test NEGATIVE 07/27/22 05:36 WBC RBC Hgb Hct MCV MCH MCHC RDW Plt Count MPV Absolute Nucleated RBC Nucleated RBC % (auto) Sodium 137 Potassium 2.7 L Chloride 100 Carbon Dioxide 30 H Anion Gap 10 L BUN 6 L Creatinine 0.70 Estim Creat Clear Calc 110.5 Estimated GFR > 60 Random Glucose 106 Calcium 8.7 D Magnesium 1.8 Troponin I High Sens B-Natriuretic Peptide Vitamin B12 Folate Urine Color Urine Appearance Urine pH Ur Specific [place] Urine Protein Urine Glucose (UA) Urine Ketones Urine Blood Urine Nitrite Ur Leukocyte Esterase Urine RBC Urine WBC Ur Squamous Epith Cells Urine Bacteria Hyaline Casts Urine Test Discharge Plan Discharge Anticipated Discharge Date/Time: 07/27/22 08:57 Patient Disposition: Left Against Medical Advice Discharge Diagnosis: etoh gastritis, hypomag and hypok Referrals: Nelda Meredith FNP [Primary Care Provider] - 1 Week Discharge Medications: Continued sucralfate [Carafate] 100 mg/mL suspension 10 ml PO Q6H PRN (Reason: Nausea) clonidine HCl 0.2 mg tablet 0.2 mg PO BID omeprazole 20 mg capsule,delayed release(DR/EC) 20 mg PO DAILY@0630 ondansetron 4 mg tablet,disintegrating 4 mg PO Q8H PRN (Reason: nausea) acamprosate 333 mg tablet,delayed release (DR/EC) 666 mg PO BID Discharge Orders: Discharge Order (Routine); Ordered 07/27/22 Ordered By: Trey Cook Care Plan Goals: eloped Health Concerns: eloped Plan of Treatment: eloped Assessment: eloped
--- NOTE | 2022-07-27 09:06 | PC.NURSE ---
Report received from overnight RN. Started first rounds at 730 to introduce self to patients and assess pain levels. Pt door was closed, knocked and walked inside but the pt was not in the room. MD, supervisor shipping room and security notified. POOL TABLE MECHANIC off unit to look for pt outside but could not find. Pt removed tele box and IV found in room connected to fluids still. All parties updated.
--- NOTE | 2022-07-27 09:13 | MHC.CM.PN ---
Patient left AMA.
== END 2022-07-27 10:05 | disposition left against medical advice (07) | DRG 241 ==
LOC: HO.ED 06:59 → HO.EDOVER 12:11 → HO.IMC 17:05
PROVIDERS: Physician Assistant Medical; Admitting Provider Student in an Organized Health Care Education/Training Program; Emergency Provider Emergency Medicine; PCP Registered Nurse; Visit Provider Internal Medicine
DX: K29.20 Alcoholic gastritis without bleeding (principal); E83.42 Hypomagnesemia; E87.6 Hypokalemia; R94.31 Abnormal electrocardiogram [ECG] [EKG]; F10.20 Alcohol dependence, uncomplicated; F19.20 Other psychoactive substance dependence, uncomplicated; Z79.899 Other long term (current) drug therapy
CPT/HCPCS: 36415; 80048; 80076; 80307; 81001; 81025; 82607; 82746; 83690; 83735; 83880; 84484; 84702; 85025; 85027; 87086; 93005; 99285; J1650; J2060; J2270; J2405; J2765; J3475

== ENCOUNTER 2022-10-29 16:11 | Outpatient (REF) | payer MEDICAID, SELFPAY | END 2022-10-29 16:12 | disposition home or self-care (01) | LOC: HO.HHCL 16:11 | PROVIDERS: Visit Provider Registered Nurse | DX: E83.42 Hypomagnesemia (principal); E87.6 Hypokalemia | CPT/HCPCS: 36415 ==

== ENCOUNTER 2023-01-11 20:49 | Emergency (ER) | payer MEDICAID, SELFPAY ==
--- NOTE | ~2023-01-11 | XR_ITS ---
EXAMINATION: XR RIBS, LEFT CLINICAL INFORMATION: Fall, anterior tenderness. COMPARISON: None available. TECHNIQUE: 3 views of the left ribs were obtained. FINDINGS: The lungs are expanded with platelike atelectasis or scarring in left lung base. No consolidation, pneumothorax, or pleural effusion. The cardiomediastinal silhouette and pulmonary vasculature are normal. Osseous structures are unremarkable. Ribs are intact. No fractures are identified. XR/XR ribs LT min 3V w CXR1V IMPRESSION: 1. Unremarkable chest exam. 2. Unremarkable left rib exam. No visible acute fracture seen.
[2023-01-11 20:53] VITALS: BP 110/49; PULSE 71; RESP 16; TEMP 36.2; O2SAT 96; BMI 28.0
--- NOTE | 2023-01-11 20:58 | ED_ITS ---
HPI - General Adult General Chief complaint: Fall Stated complaint: fall two days ago, rib pain Time Seen by Provider: 01/11/23 23:01 Source: patient Mode of arrival: ambulatory Limitations: no limitations History of Present Illness HPI narrative: 42-year-old female history of IV drug use, alcohol use disorder who presents emergency department for evaluation of left-sided rib pain after a fall that occurred in senior care. The patient states that she was incarcerated on 12/26/2022 and was going through alcohol and heroin withdrawal. She states that she became ill and was admitted to [facility] and was released on 01/08/2023. Based on the patient's description of her admission, appears she was diagnosed with cardiomyopathy with an EF of 15%, she required diuresis and lost approximately 37 lb. She states she was discharged on multiple medications which she does not know the name of but she does know that she is prescribed furosemide. 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 She states that she was discharged from [facility] and was sent back to senior care. She states that 2 days prior, while she was showering in the senior care, she slipped and fell in the shower and struck the left side of her chest. She states since that time she has been having pain in left side of her chest which is worse with breathing and with movement. Pain is constant and is 8/10. She denied fever, chills, cough, shortness of breath or dyspnea on exertion Related Data Home Medications Medication Instructions Recorded Confirmed acamprosate 333 mg tablet,delayed 666 mg PO BID 07/26/22 07/26/22 release clonidine HCl 0.2 mg tablet 0.2 mg PO BID 07/26/22 07/26/22 omeprazole 20 mg capsule,delayed 20 mg PO DAILY@0630 07/26/22 07/26/22 release ondansetron 4 mg disintegrating 4 mg PO Q8H PRN nausea 07/26/22 07/26/22 tablet sucralfate 100 mg/mL oral 10 ml PO Q6H PRN Nausea 07/26/22 07/26/22 suspension (Carafate) Previous Rx's Medication Instructions Recorded acetaminophen 500 mg tablet 1,000 mg (2 x 500 mg) PO Q6H PRN 01/11/23 (Tylenol Extra Strength) fever or pain #20 tabs ibuprofen 400 mg tablet 400 mg PO TID PRN fever or pain 01/11/23 #30 tabs Allergies Allergy/AdvReac Type Severity Reaction Status Date / Time No Known Allergies Allergy Unverified 11/05/19 14:41 Review of Systems Review of Systems: Yes all other systems are reviewed and are negative [facility] Social History Household Members: Family Housing: House Do you presently have visiting nurse or other home services: No Alcohol intake: current Alcohol intake frequency: 3 or more drinks per day Alcohol type: hard liquor Patient Tobacco Use Status: Current everyday Tobacco user Tobacco use type: Cigarette Substance Use Type: Heroin Advance Directives: No Advance Directives Information Provided: No service: No Current occupational status: unemployed Physical Exam ED Vital Signs: Vital Signs - 24 hr 01/11/23 20:53 01/11/23 22:44 01/11/23 23:48 Temperature 97.1 F 97.8 F Pulse Rate 71 67 67 Respiratory Rate 16 17 16 Blood Pressure 110/49 L 87/41 L 85/77 L Pulse Oximetry 96 97 Oxygen Delivery Method Room Air Room Air BMI result Body Mass Index 28.0 Vital signs were normal except she did have several low blood pressures but was asymptomatic Exam General: Awake, alert in no distress Head: Normocephalic, atraumatic EENT: PERRL, Lids normal, sclera normal, conjunctiva normal, nose normal , ears normal, throat without erythema or exudates Neck: Supple, no adenopathy, no trachea midline or C-spine tenderness Lung: breath sounds symmetric, no wheezing, rales or rhonchi Chest: symmetric movement, no bruising or ecchymosis noted on her left chest but she does have left lateral chest wall tenderness and left anterior chest wall tenderness Heart: regular rate and rhythm, normal S1, S2 no murmurs or rubs Abdomen: soft, non-tender, nondistended, normal bowel sounds Back: no vertebral tenderness, no CVAT Extremities: no deformities, moves all extremities symmetrically Neuro: Awake, alert, oriented, normal speech, moves all extremities symmetrically Psych: Pleasant, cooperative Course Course Course Narrative: This is a rapid medical exam: Additional HPI, ROS, PE not included below will be deferred to primary provider. Patient is a 42-year-old female presenting to the emergency department with complaint of left anterior rib pain after a slip and fall in the shower at the senior care the day before yesterday. States that she did not seek treatment at the senior care because she knew she was being released that day. Complains of ongoing 8/10 pain. Denies shortness of breath. Plan: x-ray Medical Decision Making Medical Decision Making MDM Narrative: 42-year-old female history of IV drug use, alcohol use disorder recent diagnosis of cardiomyopathy and lower extremity neuropathy who presents emergency department for evaluation of left-sided rib pain after a fall that occurred in senior care 2 days prior. Vital signs initially revealed normal blood pressure but she did have some low blood pressures here in the emergency department-according to nursing staff she did take her own clonidine in the emergency department which she takes at night for anxiety. Patient's physical examination did reveal left- sided anterior and lateral chest wall tenderness. Lungs were clear and breath sounds are symmetric bilaterally. Following evaluation was ordered: Chest x-ray with left rib series The patient's x-ray revealed no acute fracture or pneumothorax. I did discuss this with the patient. Given her tenderness in concerned that she may have nondisplaced rib fractures verses rib contusions I did discuss this with her. Patient was prescribed ibuprofen and Tylenol for her pain. She was given printed and verbal instructions and discharged home. Differential Diagnosis Differential Diagnoses: The differential diagnosis associated with the presentation includes Differential diagnosis includes was not limited to chest wall contusion, displaced rib fractures, nondisplaced rib fractures, pneumothorax, hemothorax Independent Interpretation I performed an independent interpretation of an: Plain X-Ray Interpretation: My independent interpretation the patient's three view chest x-ray with left rib series is as follows: No acute fracture, no pneumothorax or hemothorax seen by me Radiology Impression Discussion of test interpretation with radiology: I have reviewed the radiologist's reading. Radiologist Impression: XR ribs LT min 3V w CXR1V IMPRESSION: 1. Unremarkable chest exam. 2. Unremarkable left rib exam. No visible acute fracture seen. Dictated By: Pipe Dotson MD Prescription Management I considered prescription management with: Pain Medication Chronic Conditions Patient?s care impacted by: Other (Opiate use disorder, alcohol use disorder) Discharge Plan Discharge Clinical Impression: Contusion of ribs Patient Disposition: Home, Self-Care Instructions: Rib Contusion (ED) Additional Instructions: Your x-ray of your chest and left ribs did not reveal any displaced rib fractures. You may have cracked ribs or bruise rib based on your exam. Take ibuprofen 400 mg pills,1 pills every 6 hours as needed for pain or fever. Take Tylenol (acetaminophen) 500 mg pills, 2 pills every 6 hours as needed for pain or fever. Your blood pressure was low and I suspect that this may be related to your medications. When you get home please call the emergency department at and ask for Dr. Lucio Crespo and I will review your medications with you to determine if you can stop or decrease 1 of your medications to improve your blood pressure. Follow-up with your doctor in 2 days. Please return to the emergency department if your symptoms get worse or if you develop any symptoms that are concerning to you. Prescriptions: New acetaminophen [Tylenol Extra Strength] 500 mg tablet 1,000 mg PO Q6H PRN (Reason: fever or pain) Qty: 20 0RF ibuprofen 400 mg tablet 400 mg PO TID PRN (Reason: fever or pain) Qty: 30 0RF No Action sucralfate [Carafate] 100 mg/mL suspension 10 ml PO Q6H PRN (Reason: Nausea) clonidine HCl 0.2 mg tablet 0.2 mg PO BID omeprazole 20 mg capsule,delayed release(DR/EC) 20 mg PO DAILY@0630 ondansetron 4 mg tablet,disintegrating 4 mg PO Q8H PRN (Reason: nausea) acamprosate 333 mg tablet,delayed release (DR/EC) 666 mg PO BID Interventions: ED Discharge Assessment Last Done: 01/11/23 23:49 Discharge Date/Time: 01/11/23 23:49
[2023-01-11 22:44] VITALS: BP 87/41; PULSE 67; RESP 17; TEMP 36.6; O2SAT 97
[2023-01-11 23:48] VITALS: BP 85/77; PULSE 67; RESP 16
== END 2023-01-11 23:49 | disposition home or self-care (01) ==
PROVIDERS: Emergency Provider Emergency Medicine Emergency Medical Services; PCP Family Medicine
DX: S29.9XXA Unspecified injury of thorax, initial encounter (principal); R07.81 Pleurodynia; F11.23 Opioid dependence with withdrawal; F10.239 Alcohol dependence with withdrawal, unspecified; Y90.9 Presence of alcohol in blood, level not specified; F17.210 Nicotine dependence, cigarettes, uncomplicated; W01.10XA Fall on same level from slipping, tripping and stumbling with subsequent striking against unspecified object, initial encounter; Y93.9 Activity, unspecified; Y92.9 Unspecified place or not applicable; Y99.9 Unspecified external cause status; Z71.6 Tobacco abuse counseling; Z79.899 Other long term (current) drug therapy
CPT/HCPCS: 71101; 99282; 99283

== ENCOUNTER 2023-01-17 22:56 | Emergency (ER) | payer SELFPAY ==
[2023-01-17 23:14] VITALS: BP 135/78; BP 157/86; PULSE 88; PULSE 92; RESP 20; TEMP 36.6; O2SAT 94; O2SAT 95; BMI 30.9
--- NOTE | 2023-01-17 23:17 | PC.NURSE ---
pt biba reporting taking one bag of heroin injected into her right arm. pt reports she did heroin because she missed her methadone dose for the day. pt was given 8mg narcan nasally by ems. pt denies pain at this time. denies si/hi. pt normal sinus on tele 84-88. 95% room air. 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 pt belongings placed in decon.
--- NOTE | 2023-01-17 23:46 | ED_ITS ---
HPI - General Adult General Chief complaint: Overdose Stated complaint: OD, 8MG NARCAN GIVEN Time Seen by Provider: 01/17/23 22:59 Source: patient, RN notes reviewed and old records reviewed Mode of arrival: EMS Limitations: no limitations History of Present Illness HPI narrative: 42-year-old female presents for evaluation after an opiate overdose Patient reports accidentally overdosing on heroin. She states that she injected 1 bag of heroin prior to arrival She received Narcan 8 mg nasally by EMS and arrives awake, alert oriented Patient states that she was not trying to harm herself Patient reports that she missed her Methadone dose this morning because ?I was out drinking. ? She reports feeling ?sweaty, nauseous and anxious. She denies any pain Related Data Home Medications Medication Instructions Recorded Confirmed acamprosate 333 mg tablet,delayed 666 mg PO BID 07/26/22 07/26/22 release clonidine HCl 0.2 mg tablet 0.2 mg PO BID 07/26/22 07/26/22 omeprazole 20 mg capsule,delayed 20 mg PO DAILY@0630 07/26/22 07/26/22 release ondansetron 4 mg disintegrating 4 mg PO Q8H PRN nausea 07/26/22 07/26/22 tablet sucralfate 100 mg/mL oral 10 ml PO Q6H PRN Nausea 07/26/22 07/26/22 suspension (Carafate) Previous Rx's Medication Instructions Recorded acetaminophen 500 mg tablet 1,000 mg (2 x 500 mg) PO Q6H PRN 01/11/23 (Tylenol Extra Strength) fever or pain #20 tabs ibuprofen 400 mg tablet 400 mg PO TID PRN fever or pain 01/11/23 #30 tabs Allergies Allergy/AdvReac Type Severity Reaction Status Date / Time No Known Allergies Allergy Verified 01/17/23 23:17 Review of Systems Constitutional: Constitutional: Denies chills and Denies fever(s) Eyes: Eyes: Denies blurry vision ENT: Denies sore throat Cardiovascular: Cardiovascular: Denies chest pain and Denies dyspnea Respiratory: Respiratory: Denies dyspnea Gastrointestinal: Gastrointestinal: Denies abdominal pain, Reports nausea and Denies vomiting Musculoskeletal: Musculoskeletal: Denies back pain Integumentary/Breasts: Skin/Breast: Denies rash Psychiatric: Psychiatric: Reports anxiety PMFSH Social History Social History Household Members: Family Housing: House Do you presently have visiting nurse or other home services: No Alcohol intake: current Alcohol intake frequency: 3 or more drinks per day Alcohol type: hard liquor Patient Tobacco Use Status: Current everyday Tobacco user Tobacco use type: Cigarette Smoked in Last 30 Days: Yes Use of substances other than those prescribed or required for medical reasons: Yes Substance Use Type: Heroin Patient : No service: No Current occupational status: unemployed Physical Exam ED Vital Signs: Vital Signs - 24 hr 01/17/23 23:14 01/18/23 00:38 Temperature 97.9 F Pulse Rate 88 83 Respiratory Rate 20 14 Blood Pressure 157/86 H 152/81 H Pulse Oximetry 94 95 Oxygen Delivery Method Room Air Room Air BMI result Body Mass Index 30.9 Const General: no acute distress, alert and awake Nutritional Appearance: well nourished Orientation/consciousness: patient oriented x3 HENMT Head: Yes normocephalic and Yes atraumatic Eyes Eyelids: Yes eyelids normal Conjunctivae: conjunctivae normal Sclerae: sclerae normal Corneas: corneas normal Pupils: Equal, round and reactive pupils present EOM: EOMs intact bilaterally Neck Neck: Yes full ROM Resp Effort & Inspection: normal respiratory effort, able to speak in complete sentences and not labored Cardio Rate: regular rate Rhythm: regular rhythm GI Inspection: No distended Palpation (GI): Soft to palpation, not firm, nontender, no guarding and not rigid Skin General skin exam: elasticity normal Neuro General: patient oriented x3 Cranial nerves: Yes Equal, round and reactive pupils present and Yes Bilaterally intact EOM present Cognition (Neuro): normal cognition Extrem Other: Moving all extremities well without any obvious deformities Course Reevaluation(s) Reevaluation #1: Patient had a cow score of 16, she was given methadone 20 mg that she reports usually taking 30. Time: 02:13 Medications Administered Discontinued Medications Generic Name Dose Route Start Last Admin Trade Name Jessika PRN Reason Stop Dose Admin Lorazepam 1 mg 01/17/23 23:38 01/18/23 00:11 Lorazepam 1 Mg Tablet PO 01/17/23 23:39 1 mg ONCE ONE Administration Naloxone HCl 8 mg 01/17/23 23:51 01/18/23 00:12 Naloxone Hcl Nasal Take Home 4 Mg [place] NOSTRILALT 01/17/23 23:52 8 mg ONCE ONE Administration Ondansetron HCl 4 mg 01/17/23 23:38 01/18/23 00:11 Ondansetron Odt 4 Mg Tab.Juanito CASILLAS 01/17/23 23:39 4 mg ONCE ONE Administration Medical Decision Making Medical Decision Making [facility] Narrative: 42-year-old female presents for evaluation after a reported opiate overdose. The patient admits to using opiates. She denies trying to harm herself intentionally. Patient is reporting signs and symptoms consistent with opiate withdrawal which was likely initiated by 8 mg of Narcan that she receives. The patient has no pain is not actually vomiting. Will treat her symptoms with Ativan and Zofran. The patient will be observed in the ER and re-evaluated Differential Diagnosis Differential Diagnoses: The differential diagnosis associated with the presentation includes Opiate overdose Substance abuse Polysubstance abuse Depression Discharge Plan Discharge Clinical Impression: Opioid overdose Patient Disposition: Home, Self-Care Instructions: Opioid Use Disorder (ED) Additional Instructions: Avoid illicit substances. Use your methadone exactly as prescribed Follow-up with your primary doctor Return for new or worsening symptoms Prescriptions: No Action sucralfate [Carafate] 100 mg/mL suspension 10 ml PO Q6H PRN (Reason: Nausea) clonidine HCl 0.2 mg tablet 0.2 mg PO BID omeprazole 20 mg capsule,delayed release(DR/EC) 20 mg PO DAILY@0630 ondansetron 4 mg tablet,disintegrating 4 mg PO Q8H PRN (Reason: nausea) acamprosate 333 mg tablet,delayed release (DR/EC) 666 mg PO BID acetaminophen [Tylenol Extra Strength] 500 mg tablet 1,000 mg PO Q6H PRN (Reason: fever or pain) Qty: 20 0RF ibuprofen 400 mg tablet 400 mg PO TID PRN (Reason: fever or pain) Qty: 30 0RF
[2023-01-18] MEDS: Ondansetron ODT 4 MG TAB.RAPDIS TRANSLINGU (00:11)
[2023-01-18] MEDS: LORazepam 1 MG TABLET PO (00:11)
[2023-01-18] MEDS: Naloxone HCl Nasal TAKE HOME 4 MG SPRAY 8 MG NOSTRILALT (00:12)
--- NOTE | 2023-01-18 00:13 | PC.NURSE ---
pt alert, medicated per mar.
[2023-01-18 00:38] VITALS: BP 152/81; PULSE 83; RESP 14; O2SAT 95
--- OUTSIDE RECORDS SUMMARY | 2023-01-18 02:19 | XMS_ITS | Continuity of Care Document ---
Author Name Unknown Organization [facility] ter Address [address] [place] [id number] Care Team Providers Care District Claims Manager Name Role Phone Not on Staff, PCP Primary Care Physician Unavail able Encounter [facility] Date([place]): 09/10/21 - 09/11/[address] [id number]- Encounter Diagnosis Alcohol withdrawal seizure(Final) - 09/10/21 Discharge Disposition: A-D/C AMA Attending Physician: Kraig Le MD Admitting Physician: Anita FERNANDES, Krista Anderson Referring Physician: Not on Staff, Referring MD Allergies, Adverse Reactions, Alerts No Known Allergies Immunizations Given and Recorded Vaccine Date Status Refusal Reason pneumococcal 23-valent vaccine 05/06/15 Given influenza virus vaccine, inactivated 05/06/15 Give n Medications Compression- Lower Extremity (Knee High) See Instructions, # 1 pair, Maintenance, apply to both legs daily to help with leg swelling. Removeat night, 07/28/15 4:02:00, Compound Start Date: 07/28/15 Status: Ordered folic acid 1 mg oral tablet 1 mg, 1, tablet, By Mouth, Daily, # 30 tablet, Refills 0, Tot. Refills 0, Maintenance, 03/09/17 11:31:21, Print Requisition Start Date: 03/09/17 Status: Ordered loperamide 2 mg oral capsule 2 mg, By Mouth, Every 3 hours, PRN, # 15 capsule, Refills 0, Tot. Refills 0, Maintenance, Loose Stool, 03/09/17 11:31:33, Print Requisition Start Date: 03/09/17 Status: Ordered multivitamin Multiple Vitamins oral tablet 1 tablet, By Mouth, Daily, # 30 tablet, 0 Refills, Maintenance, 03/09/17 11:31:28, Tablet Start Date: 03/09/17 Status: Ordered thiamine 100 mg oral tablet 100 mg, 1, tablet, By Mouth, 2 times a day, # 60 tablet, Refills 0, Tot. Refills 0, Maintenance, 03/09/17 11:31:31, Print Requisition Start Date: 03/09/17 Status: Ordered Problem List Condition Effective Dates Status Health Status Inform ant Obese class II(Confirmed) Active Vital Signs Most recent to oldest [Reference Range]: 1 2 3 Height 165 cm (09/11/21 3:05 AM) 165 cm (09/11/21 1:48 AM) 165 cm (09/11/21 1:41 AM) Weight 100 kg (09/11/21 3:05 AM) 100 kg (09/11/21 1:48 AM) 100 kg (09/11/21 1:41 AM) Oxygen Saturation [94-100 %] 98 % (09/11/21 3:05 AM) 96 % (09/11/21 1:41 AM) 97 % (09/10/21 11:56 PM) Pulse Rate [55-90 bpm] 82 bpm (09/11/21 3:05 AM) 82 bpm (09/11/21 2:03 AM) 87 bpm (09/11/21 1:41 AM) Body Mass Index [18.5-24.99] 36.73 *>HHI* (09/11/21 3:05 AM) 36.73 *>HHI* (09/11/21 1:48 AM) 36.73 *>HHI* (09/11/21 1:41 AM) Blood Pressure [90-138/55-84 mm Hg] 154/87mm Hg *H* (09/11/21 3:05 AM) 154/87mm Hg *H* (09/11/21 2:03 AM) 162/74mm Hg *H* (09/11/21 1:48 AM) Respiratory Rate [16-30 br/min] 15 br/min *L* (09/11/21 3:05 AM) 15 br/min *L* (09/11/21 2:03 AM) 20 br/min (09/11/21 1:41 AM) Temperature [96.8-100.4 DegF] 98.3 DegF (09/11/21 3:05 AM) 98.3 DegF (09/11/21 1:41 AM) 98.3 DegF (09/10/21 11:56 PM) Mode of Delivery (Oxygen) Room air (09/11/21 3:05 AM) Room air (09/11/21 1:41 AM) Room air (09/10/21 11:56 PM) Blood pressure sites Arm, right (09/11/21 3:05 AM) Leg, right (09/11/21 1:48 AM) Arm, right (09/11/21 1:41 AM) Temperature Route Oral (09/11/21 3:05 AM) Oral (09/11/21 1:41 AM) Oral (09/10/21 11:56 PM) Dry Weight 100 kg (09/11/21 3:05 AM) 100 kg (09/11/21 1:48 AM) 100 kg (09/11/21 1:41 AM) Weight Obtained Via Patient/family state d (09/10/21 6:18 PM) Dry Weight Obtained Via Patient/family s tated (09/10/21 6:18 PM)
--- OUTSIDE RECORDS SUMMARY | 2023-01-18 02:19 | XMS_ITS | Continuity of Care Document ---
Author Name Unknown Organization [facility] ter Address [address] [place] [id number] Care Team Providers Care Liaison Inspection Laboratory Assistant Name Role Phone Nelda Meredith NP Primary Care Physician Encounter [facility] Date(s): 12/30/22 - 01/06/[address] [id number]- Encounter Diagnosis CHF exacerbation(Final) - 12/30/22 Alcohol use disorder, severe, dependence(Final) - 12/30/22 Opioid use disorder(Final) - 12/30/22 Discharge Disposition: A-D/C [facility], [facility], or [facility] Fac Attending Physician: Chantale Sidhu MD Admitting Physician: Amee Peter MD Referring Physician: Not on Staff, Referring MD Allergies, Adverse Reactions, Alerts No Known Allergies Immunizations Given and Recorded Vaccine Date Status Refusal Reason pneumococcal 23-valent vaccine 05/06/15 Given influenza virus vaccine, inactivated 05/06/15 Give n Medications acamprosate 333 mg oral delayed release tablet 2 tablet = 666 mg, By Mouth, 3 times a day, # 180 tablet, 0 Refills, Maintenance, 12/30/22 21:42:00EST, EC Tablet, Partial fill upon patient request if the prescription is for a schedule II opioid drug. Start Date: 12/30/22 Status: Ordered aspirin 81 mg oral tablet = 81 mg, By Mouth, Daily, # 30 tablet, 0 Refills, Maintenance, 01/06/23 16:01:00 EST, Tablet, Partial fill upon patient request if the prescription is for a schedule II opioid drug. Start Date: 01/06/23 Status: Ordered cloNIDine 0.1 mg oral tablet 0.1 mg, By Mouth, 2 times a day, # 60 each, Refills 0, Tot. Refills 0, Maintenance, 01/06/23 15:57:00 EST, Print Requisition, Partial fill upon patient request if the prescription is for a schedule II opioid drug. Start Date: 01/06/23 Status: Ordered Compression- Lower Extremity (Knee High) See Instructions, # 1 pair, Maintenance, apply to both legs daily to help with leg swelling. Removeat night, 07/28/15 4:02:00, Compound Start Date: 07/28/15 Status: Ordered duloxetine 60 mg oral enteric coated capsule = 60 mg, By Mouth, Daily, # 30 each, 0 Refills, Maintenance, 01/06/23 15:57:00 EST, Capsule, Partial fill upon patient request if the prescription is for a schedule II opioid drug. Start Date: 01/06/23 Status: Ordered folic acid 1 mg oral tablet 1 mg, 1, tablet, By Mouth, Daily, # 30 tablet, Refills 0, Tot. Refills 0, Maintenance, 03/09/17 11:31:21, Print Requisition Start Date: 03/09/17 Status: Ordered gabapentin 100 mg oral capsule 100 mg, Capsule, By Mouth, 01/06/23 9:00:00 EST Start Date: 01/06/23 Stop Date: 01/06/23 Status: Completed gabapentin 100 mg oral capsule 100 mg, Capsule, By Mouth, 01/06/23 15:00:00 EST Start Date: 01/06/23 Stop Date: 01/06/23 Status: Completed gabapentin 100 mg oral capsule 100 mg, By Mouth, Daily, # 30 each, Refills 0, Tot. Refills 0, Maintenance, 01/06/23 15:58:00 EST, Print Requisition, Partial fill upon patient request if the prescription is for a schedule II opioiddrug. Start Date: 01/06/23 Status: Ordered Lasix 20 mg oral tablet 20 mg, By Mouth, Daily, # 30 each, Refills 0, Tot. Refills 0, Maintenance, 01/06/23 15:57:00 EST, Print Requisition, Partial fill upon patient request if the prescription is for a schedule II opioid drug. Start Date: 01/06/23 Status: Ordered loperamide 2 mg oral capsule 2 mg, By Mouth, Every 3 hours, PRN, # 15 capsule, Refills 0, Tot. Refills 0, Maintenance, Loose Stool, 03/09/17 11:31:33, Print Requisition Start Date: 03/09/17 Status: Ordered losartan 25 mg oral tablet 25 mg, Tablet, By Mouth, 01/06/23 9:00:00 EST Start Date: 01/06/23 Stop Date: 01/06/23 Status: Completed losartan 25 mg oral tablet 25 mg, By Mouth, Daily, # 30 each, Refills 0, Tot. Refills 0, Maintenance, 01/06/23 15:58:00 EST, Print Requisition, Partial fill upon patient request if the prescription is for a schedule II opioid drug. Start Date: 01/06/23 Stop Date: 02/05/23 Status: Ordered methadone 10 mg oral tablet = 30 mg, By Mouth, Daily, for 3 days, # 3 each, 0 Refills, Acute 01/09/23 15:58:00 EST, 01/06/23 15:58:00 EST, Tablet, Partial fill upon patient request if the prescription is for a schedule II opioid drug. Start Date: 01/06/23 Stop Date: 01/09/23 Status: Ordered multivitamin Multiple Vitamins oral tablet 1 tablet, By Mouth, Daily, # 30 tablet, 0 Refills, Maintenance, 03/09/17 11:31:28, Tablet Start Date: 03/09/17 Status: Ordered omeprazole 20 mg oral delayed release tablet 1 tablet = 20 mg, By Mouth, Daily, # 30 tablet, 0 Refills, Maintenance, 12/30/22 2:48:00 EST, CR Tablet, Partial fill upon patient request if the prescription is for a schedule II opioid drug. Start Date: 12/30/22 Status: Ordered ondansetron 4 mg oral tablet, disintegrating 1 tablet = 4 mg, By Mouth, Every 8 hours, PRN as needed for nausea/vomiting, 0 Refills, Maintenance, 12/30/22 7:38:00 EST, DIS Tablet, Partial fill upon patient request if the prescription is for a schedule II opioid drug. Start Date: 12/30/22 Status: Ordered thiamine 100 mg oral tablet 100 mg, 1, tablet, By Mouth, 2 times a day, # 60 tablet, Refills 0, Tot. Refills 0, Maintenance, 03/09/17 11:31:31, Print Requisition Start Date: 03/09/17 Status: Ordered Results Radiology Reports * Exam Date Time Procedure Performing Provider Status 01/02/23 9:23 PM US Doppler Ext Lower Venous Left Nesha Harvey; Auth (Verified) Notes: (US Doppler Ext Lower Venous Left) Reason For Exam: Swelling Extremities RESULT: US Doppler Ext Lower Venous Left US Doppler Ext Lower Venous Left Reason: Swelling Extremities; Clinical Question(s): Thrombus COMPARISON: None IMAGING TECHNIQUE: Ultrasound of the veins from the groin through the calf was performed using grayscale, color, and spectral Doppler ultrasound assessing for complete compressibility and normal flowcharacteristics. FINDINGS: Common femoral vein: Patent. No thrombosis. Femoral vein: Patent. No thrombosis. Popliteal vein: Patent. No thrombosis. Gastrocnemius veins: The visualized portions are patent without evidence of thrombosis. Peroneal veins: The visualized portions are patent without evidence of thrombosis. Posterior tibial veins: The visualized portions are patent without evidence of thrombosis. Contralateral common femoral vein: Patent. No thrombosis. OTHER FINDINGS: Left popliteal fluid collection measuring 3.7 x 1.8 x 2.2 cm. IMPRESSION: No evidence of deep venous thrombosis. WSN: [id number] Ordering Physician: Elizabeth Lantigua Dictated By: Papo Martin MD Dictated Date/Time: 01/02/23 9:44 pm Reviewed By: aPpo Martin MD Signed By: Papo Martin MD Signed Date/Time: 01/02/23 9:44 pm Transcribed By: RAMY Transcribed Date/Time: 01/02/23 9:43 pm * Exam Date Time Procedure Performing Provider Status 12/29/22 11:03 PM Chest 2 Views Frontal and Lat Marilee Corrales; Auth (Verified) Notes: (Chest 2 Views Frontal and Lat) Reason For Exam: Shortness of Breath RESULT: Chest 2 Views Frontal and Lat Chest 2 Views Frontal and Lat Hx of Present Illness: Abd pain, heroine and etoh withdrawal; Reason: Shortness of Breath; ClinicalQuestion(s): CHF COMPARISON: None. FINDINGS: LINES AND TUBES: None. LUNGS AND PLEURA: Central vascular markings are prominent and indistinct with perihilar interstitial opacities suggestive of pulmonary edema. No focal consolidation. No pneumothorax. HEART, MEDIASTINUM AND BIRGIT: Mild prominence of the cardiac silhouette. Normal mediastinal and hilar contour. BONES AND SOFT TISSUES: No acute abnormality. IMPRESSION: Cardiac enlargement and pulmonary edema suggestive of CHF. On occasion, there can be overlap in radiographic appearance of CHF and viral pneumonia. WSN: [id number] Ordering Physician: Geo Lemon Dictated By: Norberto Kiran MD Dictated Date/Time: 12/29/22 11:08 p Reviewed By: Norberto Kiran MD Signed By: Norberto Kiran MD Signed Date/Time: 12/29/22 11:08 pm Transcribed By: RAMY Transcribed Date/Time: 12/29/22 11:07 pm Vital Signs Most recent to oldest [Reference Range]: 1 2 3 Height 165 cm (01/06/23 7:46 AM) 165 cm (01/06/23 2:39 AM) 165 cm (01/05/23 8:19 PM) Weight 74.3 kg (01/06/23 5:47 AM) 74.8 kg (01/05/23 4:09 AM) 75.0 kg (01/04/23 6:48 AM) Oxygen Saturation [94-100 %] 98 % (01/06/23 7:46 AM) 98 % (01/06/23 2:39 AM) 98 % (01/05/23 7:22 PM) Pulse Rate [55-90 bpm] 108 bpm *H* (01/06/23 7:46 AM) 89 bpm (01/06/23 2:39 AM) 107 bpm *H* (01/05/23 7:22 PM) Body Mass Index [18.5-24.99 kg/m2] 29.2 kg/m2 *H* (12/30/22 2:41 AM) Blood Pressure [90-138/55-84 mm Hg] 124/86mm Hg (01/06/23 10:30 AM) 117/81mm Hg (01/06/23 7:46 AM) 118/89mm Hg (01/06/23 2:39 AM) Respiratory Rate [16-30 br/min] 18 br/min (01/06/23 5:02 PM) 18 br/min (01/06/23 4:02 PM) 20 br/min (01/06/23 11:31 AM) Temperature [96.8-100.4 DegF] 97.4 DegF (01/06/23 7:46 AM) 98.4 DegF (01/06/23 2:39 AM) 97.5 DegF (01/05/23 7:22 PM) Liters per Minute 2 L/min (12/31/22 1:46 PM) 2 L/min (12/30/22 2:41 AM) 3 L/min (12/30/22 12:15 AM) Mode of Delivery (Oxygen) Room air (01/06/23 7:46 AM) Room air (01/06/23 2:39 AM) Room air (01/05/23 7:22 PM) Blood pressure sites Arm, right (01/06/23 7:46 AM) Arm, left (01/06/23 2:39 AM) Arm, right (01/05/23 8:19 PM) Temperature Route Temporal (01/06/23 7:46 AM) Oral (01/06/23 2:39 AM) Oral (01/05/23 7:22 PM) Dry Weight 79.5 kg (12/30/22 2:41 AM) Weight Obtained Via Bed scale (01/06/23 5:47 AM) Bed scale (01/05/23 4:09 AM) Bed scale (01/04/23 6:48 AM) Admission evaluation note * Vanessa FERNANDES, Silvestre: PERFORM, MODIFY Event Display: Admission Note Authored Date: Patient: ??DENTON JOHANSEN ? Age:??42 Years?Sex:??Female?:??1980?? Chief Complaint/Reason for Consultation Pt biba from shelter with c/o abdominal pain and withdrawing from etoh and heroine. Pt reports last use 3 days ago. History of Present Illness Denton is a 42-year-old female with past medical history of Opiate use disorder/IV drug use, alcohol use disorder, tobacco dependence presented from custody complaining of withdrawal, abdominal pain and shortness of breath. ?? Patient started to have bilateral pitting leg edema of the leg few weeks back.?? See took some Lasix from her friend with improved the leg swelling.?? For the past 3 to 4 days she started to have worsening shortness of breath with minimal exertion.?? She uses 3-4 bags of heroin daily but has been trying to cut down and now uses 2 bags.?? Last use was Saturday before she was on custody.?? Drinks 3 pints of vodka every day.?? Last drink was Saturday.?? She started to have signs of withdrawal withnausea, abdominal pain, shaking.?? [facility] and was sent to emergency department for evaluation. ? The ED patient was found to be in opiate withdrawal and managed with methadone.?? Chest x-ray demonstrated cardiomegaly and congestion; BNP was elevated.?? Bedside ultrasound also showed CHF.?? Patient was given Lasix and admitted for new onset CHF. Review of Systems A full review of systems was completed and is otherwise negative except as mentioned in history of present illness. Objective Vital Signs?? Temperature: 98.9 DegF (12/30/22 07:21:00) Temperature Route: Temporal (12/30/22 07:21:) Pulse Rate: 75 bpm (12/30/22 09:00:00) Respiratory Rate: 19 br/min (12/30/22 07:21:00) Systolic Blood Pressure:??148 mm Hg??High (12/30/22 09:00:00) Diastolic Blood Pressure:??85 mm Hg??High (12/30/22 09:00:00) Blood pressure sites: Arm, right (12/30/22 09:00:00) Mean Arterial Pressure: 114 mm Hg (12/30/22 07:21:00) Pulse Pressure: 63 mm Hg (12/30/22 09:00:00) Oxygen Saturation: 96 % (12/30/22 07:21:00) Liters per Minute: 2 L/min (12/30/22 02:41:00) Mode of Delivery (Oxygen): Room air (12/30/22 07:21:00) Early Warning Score: 0 (12/30/22 10:25:04) ? Physical Exam General:??Alert, awake, not in?? acute cardiopulmonary distress. Eyes:??no eye redness Ear, Nose and Throat:??Oropharynx clear, mucous membranes moist.??no thrush Neck:??Supple, Full range of motion. Respiratory:??Clear to auscultation??. No wheezing, rales or rhonchi. Cardiovascular:??Heart sounds normal. Regular rate and rhythm, no murmurs Gastrointestinal:??Abdomen soft, non-tender, non-distended. Normal bowel sounds. Genitourinary:??No costovertebral angle tenderness. Neurologic:??Cranial nerves II-XII grossly intact. No focal neurological deficits.?? Skin:??No rashes or lesions. No edema. Musculoskeletal:??No cyanosis or clubbing. No gross deformities. Assessment/Plan Denton is a 42-year-old female with past medical history of Opiate use disorder/IV drug use, alcohol use disorder, tobacco dependence presented from custody complaining of withdrawal, abdominal pain and shortness of breath. patient was found to be in opiate withdrawal and managed with methadone.?? Chest x-ray demonstrated cardiomegaly and congestion; BNP was elevated.?? Bedside ultrasound also showed CHF.?? Patient was given Lasix and admitted for new onset CHF. ?? Acute exacerbation of CHF (congestive heart failure) ??(I50.9) Shortness of breath,??lower extremity swelling,??congestion on chest x-ray, elevated BNP Slightly elevated troponin EKG with left ventricular hypertrophy; reciprocal changes Likely hypertensive heart disease??and alcohol related heart disease Plan Lasix 20 mg one for today-->reevaluate tomorrow Input output, daily weight Trend troponin Echocardiogram ordered Blood pressure management as below Cardiology consult ?? Hypertensive urgency ??(I16.0) Uncontrolled blood pressure;??probably also in the setting of??opiate withdrawal Started??losartan Continue??clonidine ?? Opioid use disorder ??(F11.90) Methadone 30 mg??ordered Monitor QTc with??EKG Hypokalemia, hypomagnesemia: electrolyte supplemented Addiction medicine consult Ordered EKG for tomorrow ?? Alcohol use disorder, severe, dependence ??(F10.20) Alcohol use with withdrawal ??(F10.939) Continue on CIWA protocol Ativan Addiction medicine consult ?? Tobacco dependence Counseled to quit NRT ?? Full code Cardiac diet?? Ongoing Medical Necessity:??Alcohol withdrawal, Opiate detox, IV lasix, echo ? Histories Allergies Allergies ?(Active and Proposed Allergies Only) NKA? (Severity: Unknown severity, Onset: Unknown) ? Past Medical History/Problem List ? Past Surgical History No surgery history documented. ? Social History No social history documented. ? Medications Home Medications Clonidine (cloNIDine 0.1 mg oral tablet)?0.1?Milligram?1?tablet?By Mouth?2 times a day Durable Medical Equipment (Compression- Lower Extremity (Knee High))?See Instructions?apply to both legs daily to help with leg swelling. Remove at night Folic Acid (folic acid 1 mg oral tablet)?1?Milligram?1?tablet?By Mouth?Daily Loperamide (loperamide 2 mg oral capsule)?2?Milligram?By Mouth?Every 3 hours?as needed?Loose Stool Multivitamin (multivitamin Multiple Vitamins oral tablet)?1?tab(s)?By Mouth?Daily Omeprazole (omeprazole 20 mg oral delayed release tablet)?1?tab(s)?20?Milligram?By Mouth?Daily Ondansetron (ondansetron 4 mg oral tablet, disintegrating)?1?tab(s)?4?Milligram?By Mouth?Every 8 hours?as needed?as needed for nausea/vomiting Thiamine (thiamine 100 mg oral tablet)?100?Milligram?1?tablet?By Mouth?2 times a day ? Inpatient Medications Medications (12) Active SCHEDULED: (8) Clonidine 0.1 mg Tablet (cloNIDine 0.1 mg oral tablet) ??0.1 mg, By Mouth, 2 times a day Folic Acid 1 mg Tablet (Folic Acid Tablet) ??1 mg, By Mouth, Daily Furosemide Inj (Lasix ??Inj) ??20 mg 2 mL, IV Push Slowly, Once Multivitamin Tablet ??1 tablet, By Mouth, Daily NaCl 0.9% Flush 3ml (NaCL 0.9% Flush) ??3 mL, IV Push, Every 8 hours Pantoprazole 40 mg EC Tablet (pantoprazole 40 mg oral delayed release tablet) ??40 mg, By Mouth, Daily Pyridoxine 50 mg Tablet (Pyridoxine Tablet) ??50 mg, By Mouth, Daily Thiamine 100 mg Tablet (Thiamine Tablet) ??100 mg, By Mouth, 2 times a day CONTINUOUS: (0) PRN: (4) Loperamide 2 mg Capsule (loperamide 2 mg oral capsule) ??2 mg, By Mouth, Every 3 hours Lorazepam 1 mg Tablet (Ativan Tablet) ??1 mg, By Mouth, Every 2 hours Lorazepam 2 mg Tablet (Ativan Tablet) ??2 mg, By Mouth, Every 2 hours NaCl 0.9% Flush 3ml (NaCL 0.9% Flush) ??3 mL, IV Push, Every 8 hours ? Results Recent Labs BLOOD COUNT & DIFF WBC 7.3 k/mm3 ()?? 12/29/2022 20:07 RBC 3.28 m/mm3 (Low)?? 12/29/2022 20:07 Hgb 13.1 Gm/dL ()?? 12/29/2022 20:07 Hct 38.0 % ()?? 12/29/2022 20:07 MCV 115.9 femtoliters (High)?? 12/29/2022 20:07 MCH 39.9 pg (High)?? 12/29/2022 20:07 MCHC 34.5 g/dL ()?? 12/29/2022 20:07 Platelet Count 282 k/mm3 ()?? 12/29/2022 20:07 RDW-SD 55.8 femtoliters (High)?? 12/29/2022 20:07 MPV 9.4 femtoliters ()?? 12/29/2022 20:07 Nucleated RBC (Automated) 0.4 #/100 WBC'S ()?? 12/29/2022 20:07 Abs. NRBC 0.0 k/mm3 ()?? 12/29/2022 20:07 Abs. Neut 5.0 k/mm3 ()?? 12/29/2022 20:07 Abs. Lymph 1.7 k/mm3 ()?? 12/29/2022 20:07 Abs. Grady 0.5 k/mm3 ()?? 12/29/2022 20:07 Abs. Eo 0.0 k/mm3 ()?? 12/29/2022 20:07 Abs. Baso 0.0 k/mm3 ()?? 12/29/2022 20:07 Neut % 68.5 % ()?? 12/29/2022 20:07 Lymph % 23.3 % ()?? 12/29/2022 20:07 Grady % 7.1 % ()?? 12/29/2022 20:07 Eos % 0.0 % ()?? 12/29/2022 20:07 Baso % 0.3 % ()?? 12/29/2022 20:07 Imm Gran 0.8 % ()?? 12/29/2022 20:07 Abs. Imm Gran 0.1 k/mm3 ()?? 12/29/2022 20:07 ?? CARDIAC Nt-Probnp 4632 pg/mL (High)?? 12/29/2022 20:07 High Sensitivity Troponin (HSTnT) 52 ng/L (High)?? 12/30/2022 09:15 ?? CHEM GENERAL Sodium 139 mmol/L ()?? 12/30/2022 09:15 Potassium HEMOLYZED mmol/L ()?? 12/30/2022 09:15 Chloride 100 mmol/L ()?? 12/30/2022 09:15 Bicarbonate Level 26 mmol/L ()?? 12/30/2022 09:15 Anion Gap 13 ()?? 12/30/2022 09:15 Glucose Level 119 mg/dL (High)?? 12/29/2022 20:07 BUN 4 mg/dL (Low)?? 12/29/2022 20:07 Creatinine-Blood 0.5 mg/dL ()?? 12/29/2022 20:07 Estimated GFR Creatinine 120 ML/MIN/1.73 M2 ()?? 12/29/2022 20:07 Calcium 9.8 mg/dL ()?? 12/29/2022 20:07 Magnesium 1.8 mg/dL ()?? 12/30/2022 09:15 Protein, Total 7.5 Gm/dL ()?? 12/29/2022 20:07 Albumin 3.7 Gm/dL ()?? 12/29/2022 20:07 AG Ratio 1.0 ()?? 12/29/2022 20:07 Alkaline Phosphatase 128 units/L (High)?? 12/29/2022 20:07 Lipase 14 units/L ()?? 12/29/2022 20:07 AST (SGOT) 25 units/L ()?? 12/29/2022 20:07 ALT (SGPT) 13 units/L ()?? 12/29/2022 20:07 Bilirubin, Total 0.6 mg/dL ()?? 12/29/2022 20:07 Lactate 1.0 mmol/L ()?? 12/29/2022 20:07 ?? ENDOCRINE/TUMOR MARKER TSH 0.44 uIU/mL ()?? 12/29/2022 20:07 Serum Qual NEGATIVE mIU/mL ()?? 12/29/2022 20:07 ?? HEME OTHER Hold Lavender Top SPECIMEN DISCARDED AFTER 24 HOURS. ()?? 12/30/2022 09:15 Hold Blue Top SPECIMEN DISCARDED AFTER 4 HOURS. ()?? 12/29/2022 20:07 ?? TOXICOLOGY/TDM Ethanol, Serum or Plasma NONE DETECTED mg/dL ()?? 12/29/2022 20:07 Barbiturate Screen, Urine NONE DETECTED ()?? 12/30/2022 00:30 Cannabinoid Screen, Urine NONE DETECTED ()?? 12/30/2022 00:30 Cocaine Metabolite Screen, Urine NONE DETECTED ()?? 12/30/2022 00:30 Benzodiazepine Screen, Urine POSITIVE (Abnormal)?? 12/30/2022 00:30 Amphetamine Screen, Urine NONE DETECTED ()?? 12/30/2022 00:30 Opiate Screen, Urine NONE DETECTED ()?? 12/30/2022 00:30 ?? URINE OTHER Est Creatinine Clearance 133.03 mL/min ()?? 12/30/2022 02:47 ?? VIROLOGY Influenza A PCR NEGATIVE ()?? 12/29/2022 20:50 Influenza B PCR NEGATIVE ()?? 12/29/2022 20:50 RSV PCR NEGATIVE ()?? 12/29/2022 20:50 COVID-19 PCR Specimen Source NASAL ()?? 12/29/2022 20:50 COVID-19 PCR Result NEGATIVE ()?? 12/29/2022 20:50 ? EKG study * Event Display: ECG 12-Lead Authored Date: Please click on pdf link to open report * Event Display: ECG 12-Lead Authored Date: Ventricular Rate: 105 BPM Atrial Rate: 105 BPM P-R Interval: 134 ms QRS Duration: 74 ms Q-T Interval: 364 ms QTC Calculation(Bazett): 481 ms P Wildwood: 49 degrees R Wildwood: 29 degrees T Wildwood: 15 degrees Poor data quality, interpretation may be adversely affected Sinus tachycardia Possible Left atrial enlargement Anterior infarct (cited on or before 04-JAN-2023) Abnormal ECG When compared with ECG of 05-JAN-2023 08:47, Questionable change in initial forces of Anterior leads Nonspecific T wave abnormality now evident in Anterior leads Confirmed by RANDALL DESAI MD () on 01/06/2023 4:12:20 PM Victor: RANDALL DESAI MD * Event Display: ECG 12-Lead Authored Date: Please click on pdf link to open report * Event Display: ECG 12-Lead Authored Date: Ventricular Rate: 82 BPM Atrial Rate: 82 BPM P-R Interval: 136 ms QRS Duration: 76 ms Q-T Interval: 428 ms QTC Calculation(Bazett): 500 ms P Wildwood: 64 degrees R Wildwood: 41 degrees T Wildwood: 12 degrees Critical Test Result: Long QTc Normal sinus rhythm with sinus arrhythmia Cannot rule out Anterior infarct , age undetermined Prolonged QT Abnormal ECG When compared with ECG of 04-JAN-2023 07:28, MANUAL COMPARISON REQUIRED, DATA IS UNCONFIRMED Confirmed by RANDALL DESAI MD () on 01/05/2023 4:29:56 PM Victor: RANDALL DESAI MD * Event Display: ECG 12-Lead Authored Date: Please click on pdf link to open report * Event Display: ECG 12-Lead Authored Date: Ventricular Rate: 79 BPM Atrial Rate: 79 BPM P-R Interval: 126 ms QRS Duration: 86 ms Q-T Interval: 430 ms QTC Calculation(Bazett): 493 ms P Wildwood: 62 degrees R Wildwood: 44 degrees T Wildwood: 3 degrees Normal sinus rhythm Cannot rule out Inferior infarct , age undetermined Abnormal ECG When compared with ECG of 03-JAN-2023 08:57, No significant change was found Confirmed by DAVID IGNACIO MD ([id number]) on 01/05/2023 12:49:08 PM Victor: DAVID IGNACIO MD * Event Display: EKG Authored Date: * Event Display: EKG Authored Date: * Event Display: EKG Authored Date: US Heart * Event Display: Echocardiogram - Complete Authored Date: Transthoracic Echocardiography Report (TTE) Patient Demographics Patient Name DENTON JOHANSEN Date of Study 12/30/2022 [employer] Gender Female Facility Race Ethnicity Date of 1980 Height: 64.96 inches Age 42 year(s) Weight: 176.37 pounds Accession Number [id number] BSA: 1.87 m2 Room Number [id number] BMI: 29.38 kg/m2 Referring Physician Not on Staff Interpreting Srinivasan Merida Attending Physician Insurance Application Investigator Corrina Grullon [facility] Indications Heart failure. Clinical History Congestive heart failure. Opioid use-methadone Alcohol use Study Data Type of Study TTE procedure:Echo Complete-Doppler, Colorflow, M-Mode. Procedure Information:Patient not very co-operative with positioning Study Date12/30/2022 Start Time: 11:22 AM Study Location: [facility] [place] Adult Echo Study Status: Bedside Patient Status: Routine Technical Quality: Fair due to non-compliant. Blood Pressure:114/58 mmHg EKG: Normal sinus rhythm HR: 81 bpm 2D Measurements LV Diastolic Dimension: 4.9 cm LV Systolic Dimension: 3.9 cm LV Septum Diastolic: 1 cm LV PW Diastolic: 0.8 cm AO Root Dimension: 3.4 cm LA Dimension: 2.7 cm LA ESV (BP):35.5 ml LVOT Stroke Volume: 61.27 ml LA ESV Index: 19 ml/m2 Stroke Volume Index32.76 ml/m2 LVOT: 2.1 cm Cardiac Index:2.65 l/min/m2 Ascending Aorta:3.5 cm Doppler Measurements AV Peak Velocity: 111 cm/s MV Peak E-Wave: 56.2 cm/s AV Peak Gradient: 4.93 mmHg MV Peak A-Wave: 74.8 cm/s MV E/A Ratio: 0.75 LVOT Peak Velocity: 97 cm/s LVOT VTI17.7 cm MV Deceleration Time: 194 msec E' Septal Velocity: 6.53 cm/s PV Peak Velocity: 108 cm/s E' Lateral Velocity: 6.96 cm/s PV Peak Gradient: 4.67 mmHg E/Med E':[id number] E/Lat E':[id number] Cardiac Anatomy Left Ventricle/Interventricular Septum Left ventricular wall thickness is normal. Grade I, mild diastolic dysfunction with impaired LV relaxation and normal left atrial pressure. There is akinesis-dyskinesis of the basal inferoseptal wall, basal-mid inferior wall and basal-mid inferolateral wall. The left ventricular ejection fraction is 45-50 %. Left Atrium/Interatrial Septum The left atrium is normal in size based upon volume measurement. Aortic Valve The aortic valve was not well visualized. No aortic stenosis or regurgitation. Mitral Valve Normal mitral valve structure. Trace regurgitation. No significant stenosis. Aorta The ascending aorta and aortic root are normal in size (indexed for sex and BSA). Right Ventricle Normal right ventricular size and function. Right Atrium The right atrium is normal in size. Pulmonic Valve The pulmonic valve was not well visualized. Trace pulmonic regurgitation. No pulmonic stenosis. Tricuspid Valve The tricuspid valve was not well visualized. Trace tricuspid regurgitation. No tricuspid stenosis. Pumonary Artery An accurate pulmonary artery pressure could not be obtained. Venous Structures Normal IVC size and respiratory collapse. Pericardium/Extracardiac There is no pericardial effusion. Summary The left ventricular ejection fraction is 45-50 %. There is akinesis-dyskinesis of the basal inferoseptal wall, basal-mid inferior wall and basal-mid inferolateral wall. Normal right ventricular size and function. No significant valvular disease. Comparison No prior study available for comparison. Signature * Event Display: Echocardiogram - Complete Authored Date: Cardiology * Event Display: Treadmill Modified W/ Nuc Imaging Test Authored Date: [id number] Please click on pdf link to open report Hospital Progress note * Elan Win RN: PERFORM, MODIFY, SIGN, VERIFY Event Display: Progress Note Hospital Authored Date: [id number] Patient: DENTON JOHANSEN Age: 42 years Sex: Female : 1980 Associated Diagnoses: None Author: Elan Win RN Findings Problem Related to Alteration in Cardiac Function (new) : Alteration in Cardiac Function/new 01/05/2023 17:00 EST Alteration in Cardiac Status Related to Heart failure Goals & Outcomes, Cardiac Status Pt will resume/maintain adequate cardiac output, Pt will resume/maintain adequate hemodynamic status, Pt will resume/maintain adequate respiratory function, Pt will resume/maintain intact neuro function, Pt will maintain adequate GI/ function appropriate for pt, Pt will maintain adequate nutrition status, Pt/caregiver will state understanding of diagnosis, Pt/caregiver will state strategies to reduce risk factors Cardiac Interventions Implemented Assess/monitor cardiac status, Assess/monitor neuro status, Assess/monitor respiratory status, Assess for tolerance of IV infusions; verify rate & dose, Call/Report variances in ECG to provider, Document & Monitor O2 Sats; Administer O2 as ordered, Ensure adequate caloric intake, If no bowel movement in 3 days activate bowel regime, Monitor & document daily weight, Monitor ECG w/administration of antiarrhythmics (CO 13.420), Obtain 12 Lead ECG and CXR as ordered, Prep pt for treatments & procedures, Teach/encourage deep breath & cough exercises, Teach/encourage use of incentive spirometer, Team conversation regarding appropriate level ofcare, Turn & reposition Q2 hours per activity restrictions BH Goals/Interventions, Cardiac Yes Cardiac, Problem Start 12/30/2022 10:27 Reviewed Plan with, Cardiac Status Patient Patient Progression, Cardiac Status Patient progressing according to plan . Nursing Data Vital Signs : VITAL SIGNS SECTION 01/05/2023 14:48 EST Temperature 97.9 DegF Temperature Route Temporal Pulse Rate 88 bpm Respiratory Rate 18 br/min Systolic Blood Pressure 96 mm Hg Diastolic Blood Pressure 58 mm Hg Blood pressure sites Arm, right Mean Arterial Pressure 71 mm Hg Pulse Pressure 38 mm Hg Oxygen Saturation 93 % L Mode of Delivery (Oxygen) Room air 01/05/2023 7:27 EST Early Warning Score 3.00 01/05/2023 7:27 EST Temperature 97.8 DegF Temperature Route Temporal Pulse Rate 87 bpm Respiratory Rate 18 br/min Systolic Blood Pressure 149 mm Hg H Diastolic Blood Pressure 105 mm Hg H Blood pressure sites Arm, right Mean Arterial Pressure 120 mm Hg Pulse Pressure 44 mm Hg Oxygen Saturation 96 % Mode of Delivery (Oxygen) Room air . Psychosocial : Psychosocial Data. 01/05/2023 15:00 EST Affect/Behavior Calm, Cooperative . Evaluation pt is aox4. independent but in ankle shackles. on ra, ls clear. pt expressed pain r/t to neuropathyper herself and requesting additional pain management. md sidhu notified and requested and ekg to assess qtc prior to medication adjustment - qtc elevated so md sidhu stated that she wont be able to adjust dose for methadone at this time and will dc - may be switched onto oxy or subaxone dependent on qtc tmr or placed back on methadone. pt became sleepy - md sidhu made aware and stated due to methadone, pt remains sleep throughout day with regular checkins q2hrs, pt does not have any complaints and states she is sleepy. bp taken in afternoon in high 90s for sbp - md sidhu made aware and st ated that is likely due to methadone - pt has no complaints. otherwise denies sob or chest pain andis calm cooperative.. * Chantale Sidhu MD: PERFORM Event Display: Progress Note Hospital Authored Date: [id number] Patient: ??DENTON JOHANSEN ? Age:??42 Years?Sex:??Female?:??1980?? Subjective Patient seen today Had received methadone 30 mg??in the morning??, barely able to keep herself up for the conversation QTc 501 Review of Systems ROS stated above, Objective Measurements?? Height: 165 cm (01/05/23) Weight: 74.8 kg (01/05/23) Dry Weight: 79.5 kg (12/30/22) Body Mass Index:??29.2 kg/m2??High (12/30/22) ? Vital Signs?? Temperature: 97.9 DegF (01/05/23 14:48:00) Temperature Route: Temporal (01/05/23 14:48:00) Pulse Rate: 88 bpm (01/05/23 14:48:00) Respiratory Rate: 18 br/min (01/05/23 14:48:00) Systolic Blood Pressure: 96 mm Hg (01/05/23 14:48:00) Diastolic Blood Pressure: 58 mm Hg (01/05/23 14:48:00) Blood pressure sites: Arm, right (01/05/23 14:48:00) Mean Arterial Pressure: 71 mm Hg (01/05/23 14:48:00) Pulse Pressure: 38 mm Hg (01/05/23 14:48:00) Oxygen Saturation:??93 %??Low (01/05/23 14:48:00) Mode of Delivery (Oxygen): Room air (01/05/23 14:48:00) Early Warning Score: 5 (01/05/23 14:49:59) ? Intake/Output? 12/30 01:30 01/05 07:00 01/04 07:00 01/03 07:00 01/02 07:00 ?? 01/05 15:56 01/05 15:56 01/05 06:59 11/17 06:59 01/03 06:59 Intake ? 2288 ?0 ?120 ?660 ?240 Output ? 4750 ?0 ?100 ?850 ?150 Net Total ?-2462 ?0 ? 20 ? -190 ? 90 ? Urine Count ? 10 ?0 ?0 ?2 ?6 ? Mobility & Ambulation Level Mobility & Ambulation Level Ambulatory devices needed: None (12/29/22) ? Physical Exam General Appearance: The patient is alert Cardiovascular: RRR S1 and S2 heard with no M/R/G. No JVD. Respiratory: ??Breath sounds clear to auscultation bilaterally. No wheezing. Good air movement throughout both lungs. GI: Soft. Nontender and nondistended. Normal bowel sounds present throughout abdomen.?? Neuro: ??No slurred speech. ??Patient seen moving their upper and lower extremities independently. Psych: Alert and oriented x3. _ Inpatient Medications Medications (24) Active SCHEDULED: (16) Aspirin 81 mg Chew Tablet (Aspirin Tablet) ??81 mg, By Mouth, Daily Clonidine 0.1 mg Tablet (cloNIDine 0.1 mg oral tablet) ??0.1 mg, By Mouth, 2 times a day Duloxetine 60 mg Capsule (DULoxetine Capsule) ??60 mg, By Mouth, Daily Folic Acid 1 mg Tablet (Folic Acid Tablet) ??1 mg, By Mouth, Daily Furosemide 20 mg Tablet (Lasix 20 mg oral tablet) ??20 mg, By Mouth, Daily Gabapentin 100 mg Capsule (gabapentin 100 mg oral capsule) ??100 mg, By Mouth, 3 times a day Heparin 5000 units/mL Inj (1 mL) (Heparin Inj) ??5,000 units 1 mL, Subcutaneous Injection, 3 times a day Losartan 25 mg Tablet (losartan 25 mg oral tablet) ??25 mg, By Mouth, Daily Magnesium Oxide 400 mg Tablet (magnesium oxide 400 mg oral tablet) ??400 mg, By Mouth, 2 times a day Multivitamin Tablet ??1 tablet, By Mouth, Daily NaCl 0.9% Flush 3ml (NaCL 0.9% Flush) ??3 mL, IV Push, Every 8 hours Nicotine 21 mg / 24 hour Patch (Nicotine Topical) ??21 mg, Topically, Daily Pantoprazole 40 mg EC Tablet (pantoprazole 40 mg oral delayed release tablet) ??40 mg, By Mouth, Daily Pyridoxine 50 mg Tablet (Pyridoxine Tablet) ??50 mg, By Mouth, Daily Remove Patch (Remove ??Patch) ??1 each, Topically, Daily Thiamine 100 mg Tablet (Thiamine Tablet) ??100 mg, By Mouth, 2 times a day CONTINUOUS: (0) PRN: (8) Loperamide 2 mg Capsule (loperamide 2 mg oral capsule) ??2 mg, By Mouth, Every 3 hours Lorazepam 2 mg Inj Syringe (Ativan Inj) ??1 mg, IV Push Slowly, Every 2 hours Lorazepam 2 mg Inj Syringe (Ativan Inj) ??2 mg, IV Push Slowly, Every 2 hours Lorazepam 2 mg Inj Syringe (Ativan Inj) ??2 mg, IV Push Slowly, Every hour NaCl 0.9% Flush 3ml (NaCL 0.9% Flush) ??3 mL, IV Push, Every 8 hours nalOXONE ??400mcg/mL Inj (nalOXONE Inj) ??0.2 mg 0.5 mL, IV Push, Every 5 minutes PROCHLORperazine 5mg/ml Inj (Compazine Inj) ??5 mg 1 mL, IV Push, Every 6 hours Senna Tablet (Senna 8.6 mg oral tablet) ??8.6 mg 1 tablet, By Mouth, Daily ? Assessment/Plan ?? Denton is a 42-year-old female with past medical history of Opiate use disorder/IV drug use, alcohol use disorder, tobacco dependence presented from custody complaining of withdrawal, abdominal pain and shortness of breath. patient was found to be in opiate withdrawal and managed with methadone.?? Chest x-ray demonstrated cardiomegaly and congestion; BNP was elevated.?? Bedside ultrasound also showed CHF.?? Patient was given Lasix and admitted for new onset CHF ?? Acute diastolic CHF, improved Acute kidney injury, improved ??Shortness of breath, lower extremity swelling, congestion on chest x-ray, elevated BNP ??Slightly elevated troponin ??EKG with left ventricular hypertrophy; reciprocal changes ??ECHO: left ventricular ejection fraction is 45-50 %. There is akinesis- dyskinesis of the basal inferoseptal wall, basal-mid inferior wall and basal-mid inferolateral wall. Likely hypertensive heart disease and alcohol related heart disease PIPPA most likely in setting of overdiuresis Negative stress test doppler left leg : no DVT ??Plan Resume losartan and Lasix??given??normal kidney function Cardiology??signed off, to follow-up with them outpatient ?? Hypertensive urgency (I16.0) ??Uncontrolled blood pressure; probably also in the setting of polysubstance withdrawal Resumed losartan 25mg due to PIPPA reduce clonidine to 0.1 BID as per addiction recs due to prolonged QTc ?? Opioid use disorder (F11.90) ??Said she uses about a bag a day which is minimal. s 01/04: QTc less than 500, okay to start 30 mg daily.?? plan addiction med rec: Methadone if tolerated could go up on 40 mg over the weekend. Further recs: However, if QTc prolongs again on subsequent EKGs over the next few days: if over 510ms, hold further methadone for now. Can consider suboxone start vs continuing to cover with oxycodone. If pt is open to trying suboxone as an alternative for now given ongoing QTc issues, hold PRN oxycodone x24 hrs (and do not start any other opioids). After 24 hrs has passed, can trial suboxone 2mg/0.5mg x1. If this is tolerated well with no worsening of any withdrawal type symptoms, after about an hour can do another 6mg/1.5mg x1 for a total of 8mg for the day, and maintain pt on 8mg/2mg of suboxone moving forward. if under 510ms, could consider doing 15-20mg of methadone and see if this is tolerated. ?? *If pt is released from police custody next week and is able to d/c to the community: She has been referred to [facility] in [place] ([address]) just in case she is released while here. This clinic is able to provide either methadone or suboxone. If on methadone, she will need to bring the last dose letter for the methadone, d/c summary, and hospital wristband to the clinic the following morning for dosing. ?? *If pt is d/c back to shelter from here, the shelter will work out methadone or suboxone dosing there. Itcan take a few days for either to be resumed. 01/05: QTc 501, will check tomorrow EKG and dose methadone accordingly. Patient has been sleepy thewhole day after getting 30 mg of methadone. ?? Alcohol use disorder, severe, dependence (F10.20) ??Alcohol use with withdrawal (F10.939) ??Continue on CIWA protocol ??Ativan ? Peripheral neuropathy 2/2 to??alcohol use ?? Will initiate low dose gabapentin and uptitrate as needed ?? Tobacco dependence ??Counseled to quit, offered??NRT ?DVT: Hep ?? * Chantale Sidhu MD: PERFORM Event Display: Progress Note Hospital Authored Date: Patient: ??DENTON JOHANSEN ? Age:??42 Years?Sex:??Female?:??1980?? Subjective Patient seen today. Declines any chest pain, shortness of breath, nausea, vomiting. Kidney function back to baseline Review of Systems ROS stated above Objective Measurements?? Height: 165 cm (01/04/23) Weight: 75 kg (01/04/23) Dry Weight: 79.5 kg (12/30/22) Body Mass Index:??29.2 kg/m2??High (12/30/22) ? Vital Signs?? Temperature: 97.5 DegF (01/04/23 13:22:00) Temperature Route: Temporal (01/04/23 13:22:00) Pulse Rate:??91 bpm??High (01/04/23 13:22:00) Respiratory Rate: 18 br/min (01/04/23 15:56:00) Systolic Blood Pressure:??146 mm Hg??High (01/04/23 14:03:00) Diastolic Blood Pressure:??103 mm Hg??High (01/04/23 14:03:00) Blood pressure sites: Arm, left (01/04/23 13:22:00) Mean Arterial Pressure: 117 mm Hg (01/04/23 13:22:00) Pulse Pressure: 43 mm Hg (01/04/23 13:22:00) Oxygen Saturation: 96 % (01/04/23 13:22:00) Mode of Delivery (Oxygen): Room air (01/04/23 13:22:00) Early Warning Score: 3 (01/04/23 15:57:01) ? Intake/Output? 12/30 01:30 01/04 07:00 01/03 07:00 01/02 07:00 01/01 07:00 ?? 01/04 16:45 01/04 16:45 01/04 06:59 01/03 06:59 01/02 06:59 Intake ? 2168 ?0 ?660 ?240 ?120 Output ? 4650 ?0 ?850 ?150 ? 1450 Net Total ?-2482 ?0 ? -190 ? 90 ?-1330 ? Urine Count ? 11 ?0 ?2 ?3 ?3 ? Mobility & Ambulation Level Mobility & Ambulation Level Ambulatory devices needed: None (12/29/22) ? Physical Exam General Appearance: The patient is alert Cardiovascular: RRR S1 and S2 heard with no M/R/G. No JVD. Respiratory: ??Breath sounds clear to auscultation bilaterally. No wheezing. Good air movement throughout both lungs. GI: Soft. Nontender and nondistended. Normal bowel sounds present throughout abdomen.?? Neuro: ??No slurred speech. ??Patient seen moving their upper and lower extremities independently. Psych: Alert and oriented x3. _ Inpatient Medications Medications (24) Active SCHEDULED: (16) Aspirin 81 mg Chew Tablet (Aspirin Tablet) ??81 mg, By Mouth, Daily Clonidine 0.1 mg Tablet (cloNIDine 0.1 mg oral tablet) ??0.1 mg, By Mouth, 2 times a day Duloxetine 60 mg Capsule (DULoxetine Capsule) ??60 mg, By Mouth, Daily Folic Acid 1 mg Tablet (Folic Acid Tablet) ??1 mg, By Mouth, Daily Gabapentin 100 mg Capsule (gabapentin 100 mg oral capsule) ??100 mg, By Mouth, 3 times a day Heparin 5000 units/mL Inj (1 mL) (Heparin Inj) ??5,000 units 1 mL, Subcutaneous Injection, 3 times a day hydrALAZINE 25 mg Tablet (hydrALAZINE 25 mg oral tablet) ??25 mg, By Mouth, 4 times a day Magnesium Oxide 400 mg Tablet (magnesium oxide 400 mg oral tablet) ??400 mg, By Mouth, 2 times a day Methadone 10 mg Tablet (Methadone Tablet) ??30 mg, By Mouth, Daily Multivitamin Tablet ??1 tablet, By Mouth, Daily NaCl 0.9% Flush 3ml (NaCL 0.9% Flush) ??3 mL, IV Push, Every 8 hours Nicotine 21 mg / 24 hour Patch (Nicotine Topical) ??21 mg, Topically, Daily Pantoprazole 40 mg EC Tablet (pantoprazole 40 mg oral delayed release tablet) ??40 mg, By Mouth, Daily Pyridoxine 50 mg Tablet (Pyridoxine Tablet) ??50 mg, By Mouth, Daily Remove Patch (Remove ??Patch) ??1 each, Topically, Daily Thiamine 100 mg Tablet (Thiamine Tablet) ??100 mg, By Mouth, 2 times a day CONTINUOUS: (0) PRN: (8) Loperamide 2 mg Capsule (loperamide 2 mg oral capsule) ??2 mg, By Mouth, Every 3 hours Lorazepam 2 mg Inj Syringe (Ativan Inj) ??1 mg, IV Push Slowly, Every 2 hours Lorazepam 2 mg Inj Syringe (Ativan Inj) ??2 mg, IV Push Slowly, Every 2 hours Lorazepam 2 mg Inj Syringe (Ativan Inj) ??2 mg, IV Push Slowly, Every hour NaCl 0.9% Flush 3ml (NaCL 0.9% Flush) ??3 mL, IV Push, Every 8 hours nalOXONE ??400mcg/mL Inj (nalOXONE Inj) ??0.2 mg 0.5 mL, IV Push, Every 5 minutes PROCHLORperazine 5mg/ml Inj (Compazine Inj) ??5 mg 1 mL, IV Push, Every 6 hours Senna Tablet (Senna 8.6 mg oral tablet) ??8.6 mg 1 tablet, By Mouth, Daily ? Assessment/Plan ?? Denton is a 42-year-old female with past medical history of Opiate use disorder/IV drug use, alcohol use disorder, tobacco dependence presented from custody complaining of withdrawal, abdominal pain and shortness of breath. patient was found to be in opiate withdrawal and managed with methadone.?? Chest x-ray demonstrated cardiomegaly and congestion; BNP was elevated.?? Bedside ultrasound also showed CHF.?? Patient was given Lasix and admitted for new onset CHF ?? Acute diastolic CHF Acute kidney injury ??Shortness of breath, lower extremity swelling, congestion on chest x-ray, elevated BNP ??Slightly elevated troponin ??EKG with left ventricular hypertrophy; reciprocal changes ??ECHO: left ventricular ejection fraction is 45-50 %. There is akinesis- dyskinesis of the basal inferoseptal wall, basal-mid inferior wall and basal-mid inferolateral wall. Likely hypertensive heart disease and alcohol related heart disease PIPPA most likely in setting of overdiuresis Negative stress test doppler left leg : no DVT ??Plan Resume losartan and Lasix??given??normal kidney function Cardiology??signed off, to follow-up with them outpatient ?? Hypertensive urgency (I16.0) ??Uncontrolled blood pressure; probably also in the setting of polysubstance withdrawal Resumed losartan 25mg due to PPIPA reduce clonidine to 0.1 BID as per addiction recs due to prolonged QTc ? Opioid use disorder (F11.90) ??Said she uses about a bag a day which is minimal. s QTc less than 500, okay to start 30 mg daily.?? Methadone if tolerated could go up on 40 mg over the weekend. Further recs: However, if QTc prolongs again on subsequent EKGs over the next few days: if over 510ms, hold further methadone for now. Can consider suboxone start vs continuing to cover with oxycodone. If pt is open to trying suboxone as an alternative for now given ongoing QTc issues, hold PRN oxycodone x24 hrs (and do not start any other opioids). After 24 hrs has passed, can trial suboxone 2mg/0.5mg x1. If this is tolerated well with no worsening of any withdrawal type symptoms, after about an hour can do another 6mg/1.5mg x1 for a total of 8mg for the day, and maintain pt on 8mg/2mg of suboxone moving forward. if under 510ms, could consider doing 15-20mg of methadone and see if this is tolerated. ?? *If pt is released from police custody next week and is able to d/c to the community: She has been referred to [facility] in [place] ([address]) just in case she is released while here. This clinic is able to provide either methadone or suboxone. If on methadone, she will need to bring the last dose letter for the methadone, d/c summary, and hospital wristband to the clinic the following morning for dosing. ?? *If pt is d/c back to shelter from here, the shelter will work out methadone or suboxone dosing there. Itcan take a few days for either to be resumed. ?? Alcohol use disorder, severe, dependence (F10.20) ??Alcohol use with withdrawal (F10.939) ??Continue on CIWA protocol ??Ativan ? Peripheral neuropathy 2/2 to??alcohol use ?? Will initiate low dose gabapentin and uptitrate as needed ?? Tobacco dependence ??Counseled to quit, offered??NRT ? Consult note * Marsha BEEArminda: PERFORM Event Display: Consultation Note Authored Date: Patient: ??DENTON JOHANSEN ? Age:??42 Years?Sex:??Female?:??1980?? Reason for Consultation Addiction Med Consult - AUD, OUD Requested by??Dr Lemon History of Present Illness Denton Johansen is a 42 yo female with a PMHx of OUD, AUD. She was admitted 12/30 after presenting with withdrawal symptoms, abd pain, and SOB. She had noticed some b/l LE pitting edema a few weeks prior. She had taken some lasix that belonged to a friend with some improvement. CXR With cardiomegaly and congestion, bedside US also with findings consistent with CHF. Pt started on lasix. Endorsed use of heroin and ETOH, with last use on 12/25 and 12/26 respectively. Pt received 30mg of methadone yesterday. QTc prolonged - 536ms and 526ms through yesterday, 515ms this morning. ?? Met with pt this morning. Officer present at bedside. Pt is tangential but typically redirectable, though airing grievances regarding lack of telephone privileges, when she might be able to leave the hospital, not getting certain medication despite asking multiple staff members, etc. Difficult to obtain a relevant history from the pt. She report she would like to stay on methadone for maintenance treatment. She says she wouldn't want to go much higher than maybe 60mg daily. States she has been using about a bundle of heroin (previously reported 3-4 bags) a day, sometimes a joao bag of cocaine, and about 2-3 pints of liquor a day. ETOH is her drug of choice, and she says she has been on campral for??ETOH as well. When asked about sobriety from ETOH, she says she has only really been sober from it for any significant period while she was in shelter. Pt is anticipating to see the banquet line cook next Sat before Thanks. The banquet line cook apparently possibly alluded to some sort of favor or possibly leniency, so she is optimistic she might be released soon. Ifthis were the case, pt would like to be referred to [facility] in [place] if possible. Pt does not endorse use of any other substances. Review of Systems Reporting body aches, sweats/chills, anxiety, restlessness, poor sleep. Physical Exam Vitals & Measurements T:??98.2?F?? TMIN:??98.2?F?? TMAX:??98.6?F?? HR:??82??(Peripheral)?? RR:??18?? BP:??154/115?? SpO2:??97%?? WT:??78.0??kg?? General:??well developed, well nourished,??appears to be stated age.??Breathing is??even and unlabored.??In no acute distress,??no diaphoresis. Mental Status Exam: Appearance:??casual?? Attitude:??cooperative? Eye contact:??normal Motor activity:??restless at times through interview? Mood:??anxious? Affect:??congruent? Speech:??fluent, unimpaired? Judgment:??appears intact? Insight:??appears intact? Thought process:??tangential? Reliability:??uncertain? Fund of knowledge:??intact Assessment/Plan Prolonged QT Interval (R94.31) Opioid use disorder (F11.90):??. Pt with ongoing opioid use, would like to stay on methadone maintenance. Addiction steam plant control room operator will get pt??referred to [facility] in [place] just in case pt is released in the next few weeks. ?? Pts QTc this morning 515ms. K at 3.7, Mag 1.8??- would recommend to replace with goals??of >4and >2 respectively. Would recommend to hold methadone for now until QTc is <500ms. Primary team will move forward with??methadone 40mg daily for now, however, as QTc was re-calculated to be slightly less than 500ms. Will recheck EKG tomorrow though.? Alcohol use disorder, severe, dependence (F10.20):??. Patient was counseled on consequences of intermediate manager excessive ETOH consumption such as damage to thecardiovascular system, memory loss/dementia, falls/injury, cirrhosis, higher risk??for HCC,??liver failure, . ?? Pt reporting she has been on campral for ETOH cravings, could continue this, campral??666mg PO TID.?? If pts last drink was last Sat,??today will be day 5 since starting withdrawal, so d/c CIWA + PRN ativan, can d/c after today. ?? Once pt is ready to d/c, can recommend continuation of campral 666mg PO TID. [facility] may or may not continue this depending on facility policies. ?? Cocaine use disorder (F14.10):??. Briefly reviewed risks of cocaine use disorder, including risk of seizures, psychosis, vascular complications, overdose. ?? Update sent via [employer] to Dr Mendez. Addiction??Service will continue to follow with this patient. Thank you for allowing us to participate in the care of this patient. Please contact me with any further questions or concerns.?? Problem List/Past Medical History Ongoing No qualifying data Medications Inpatient Aspirin Tablet, 81 mg, By Mouth, Daily Ativan 1 mg oral tablet, 1 mg, By Mouth, Once Ativan Tablet, 1 mg, By Mouth, Every 2 hours, PRN Ativan Tablet, 2 mg, By Mouth, Every 2 hours, PRN cloNIDine 0.1 mg oral tablet, 0.2 mg, By Mouth, 2 times a day cloNIDine 0.1 mg oral tablet, 0.1 mg, By Mouth, Once Folic Acid Tablet, 1 mg, By Mouth, Daily Lasix Inj, 20 mg= 2 mL, IV Push Slowly, Once Lasix Inj, 20 mg= 2 mL, IV Push Slowly, Once loperamide 2 mg oral capsule, 2 mg, By Mouth, Every 3 hours, PRN losartan 25 mg oral tablet, 50 mg, By Mouth, Daily losartan 25 mg oral tablet, 25 mg, By Mouth, Once Methadone Tablet, 40 mg, By Mouth, Once Multivitamin Tablet, 1 tablet, By Mouth, Daily NaCL 0.9% Flush, 3 mL, IV Push, Every 8 hours NaCL 0.9% Flush, 3 mL, IV Push, Every 8 hours, PRN nalOXONE Inj, 0.2 mg= 0.5 mL, IV Push, Every 5 minutes, PRN Nicotine Topical, 21 mg, Topically, Daily pantoprazole 40 mg oral delayed release tablet, 40 mg, By Mouth, Daily potassium chloride 10 mEq oral tablet, extended release, 40 mEq, By Mouth, Once Pyridoxine Tablet, 50 mg, By Mouth, Daily Remove Patch, 1 each, Topically, Daily Thiamine Tablet, 100 mg, By Mouth, 2 times a day Home acamprosate 333 mg oral delayed release tablet, 666 mg= 2 tablet, By Mouth, 3 times a day cloNIDine 0.2 mg oral tablet, 0.2 mg= 1 tablet, By Mouth, 2 times a day Compression- Lower Extremity (Knee High), See Instructions folic acid 1 mg oral tablet, 1 mg= 1 tablet, By Mouth, Daily loperamide 2 mg oral capsule, 2 mg, By Mouth, Every 3 hours, PRN multivitamin Multiple Vitamins oral tablet, 1 tablet, By Mouth, Daily omeprazole 20 mg oral delayed release tablet, 20 mg= 1 tablet, By Mouth, Daily ondansetron 4 mg oral tablet, disintegrating, 4 mg= 1 tablet, By Mouth, Every 8 hours, PRN thiamine 100 mg oral tablet, 100 mg= 1 tablet, By Mouth, 2 times a day Allergies NKA Immunizations Vaccine Date Status pneumococcal 23-valent vaccine 05/06/2015 Given influenza virus vaccine, inactivated 05/06/2015 Given * Samantha FERNANDES, Tobi Mcmahon: PERFORM, MODIFY Event Display: Consultation Note Authored Date: Patient: ??DENTON JOHANSEN ? Age:??42 Years?Sex:??Female?:??1980?? Indication for Consult Pt biba from shelter with c/o abdominal pain and withdrawing from etoh and heroine. Pt reports last use 3 days ago. History of Present Illness/Interval History 42-year-old lady with history of polysubstance abuse, IV heroin use, crackuse smoker, alcohol abuse, obesity, hypertension who is in hospital with shortness of breath, peripheral edema, abdominal pain, complaining of withdrawal. Patient has been experiencing shortness of breath which has gotten worse recently, also noticed bilateral leg edema for about a month, she reports chest pain whenever she is withdrawing or with activities, she is currently incarcerated.?? As per notes history of active heroin use, she also reports c rack use, current smoker, 3 pints of vodka per day drinking. Her work-up in the hospital shows NT proBNP of 4600, high-sensitivity troponin of 52 and 35, chest x-ray showed congestion and pulmonary edema, EKG showed sinus rhythm heart of 81 bpm, LVH, peaked T waves, prolonged QTc and nonspecific ST abnormality.?? Telemetry shows sinus tachycardia at this stage. Echocardiogram showed mild cardiomyopathy EF of 45 to 50%, akinesis and dyskinesis of the basal inferoseptal wall, basal mid inferior wall and basal mid inferolateral wall, no significant valvular abnormalities Review of Systems All systems reviewed and negative except as in HPI Physical Exam Vitals & Measurements T:??98.2?F?? HR:??82??(Peripheral)?? RR:??18?? BP:??154/115?? SpO2:??97%?? HT:??165??cm?? WT:??78.0??kg?? BMI:??29.2?? Weight lb/oz: 171 lb 15 oz HEENT:?pale conjunctivae.?No jaundice.? Mouth: moist mucous membranes.? Neck: carotid pulses symmetrical.?No carotid bruit.? Cardiac:??Regular rate and rhythm,??no significant??murmur.?JVD present Chest: Crackles lower lung centeno Abdomen: soft, nontender, bowel sounds present.? Peripheral exam:??Mild peripheral edema,??skin fuentes of injection??drug use Neurologic exam is nonfocal.? Psych examination is unremarkable?? Assessment/Plan 1.??Acute exacerbation of CHF (congestive heart failure) 2.??Hypertensive urgency Alcohol use disorder, severe, dependence (Provisional) Alcohol use with withdrawal CHF exacerbation (Provisional) Opioid use disorder (Provisional) 42-year-old lady with history of polysubstance abuse, IV heroin use, crack use smoker, alcohol abuse, obesity, hypertension who is in hospital with shortness of breath, peripheral edema, abdominal pain, complaining of withdrawal. ?? Polysubstance abuse IV drug user Tobacco user Alcohol abuse Cardiomyopathy Possible CAD CHF and decompensated congestive heart failure Hypertension QTc prolongation ?? Patient has volume overload, she is receiving Lasix while in hospital, currently receiving Lasix 20mg IV daily, recommend to increase??to 40 mg IV daily, that can be changed to 40 mg p.o. daily??once close to euvolemic, she remains hypertensive, currently on clonidine, losartan, both medications have been increased, due to history of crack??cocaine use she is not on beta-emerita therapy. I discussed with her the diagnosis of cardiomyopathy, we will put her on guideline directed medicaltherapy.?? Discussed with her importance of complete abstinence from drugs and chemicals. Once her volume status improved recommend to get a stress test to assess for ischemia. Recommend to add aspirin 81 mg daily Recommend addiction medicine consult,??she is on methadone and has??QTc prolongation, needs??adjustment??of the dose.?? Recommend daily EKG. Thank you for allowing us to participate in her care Allergies NKA Home Medications Acamprosate: 666 mg = 2 tablet, By Mouth, 3 times a day Clonidine: 0.2 mg = 1 tablet, By Mouth, 2 times a day Durable Medical Equipment: See Instructions, apply to both legs daily to help with leg swelling. Remove at night Folic Acid: 1 mg = 1 tablet, By Mouth, Daily Loperamide: 2 mg, By Mouth, Every 3 hours, PRN (Loose Stool) Multivitamin: 1 tablet, By Mouth, Daily Omeprazole: 20 mg = 1 tablet, By Mouth, Daily Ondansetron: 4 mg = 1 tablet, By Mouth, Every 8 hours, PRN (as needed for nausea/vomiting) Thiamine: 100 mg = 1 tablet, By Mouth, 2 times a day Hospital Medications Medications (21) Active SCHEDULED: (16) Clonidine (cloNIDine 0.1 mg oral tablet) ??0.2 mg, By Mouth, 2 times a day Clonidine 0.1 mg Tablet (cloNIDine 0.1 mg oral tablet) ??0.1 mg, By Mouth, Once Folic Acid 1 mg Tablet (Folic Acid Tablet) ??1 mg, By Mouth, Daily Furosemide Inj (Lasix ??Inj) ??20 mg 2 mL, IV Push Slowly, Once Lorazepam 1 mg Tablet (Ativan 1 mg oral tablet) ??1 mg, By Mouth, Once Losartan (losartan 25 mg oral tablet) ??50 mg, By Mouth, Daily Losartan 25 mg Tablet (losartan 25 mg oral tablet) ??25 mg, By Mouth, Once Methadone 10 mg Tablet (Methadone Tablet) ??40 mg, By Mouth, Once Multivitamin Tablet ??1 tablet, By Mouth, Daily NaCl 0.9% Flush 3ml (NaCL 0.9% Flush) ??3 mL, IV Push, Every 8 hours Nicotine 21 mg / 24 hour Patch (Nicotine Topical) ??21 mg, Topically, Daily Pantoprazole 40 mg EC Tablet (pantoprazole 40 mg oral delayed release tablet) ??40 mg, By Mouth, Daily Potassium Chloride 10mEq ER Tablet (potassium chloride 10 mEq oral tablet, extended release) ??40 mEq, By Mouth, Once Pyridoxine 50 mg Tablet (Pyridoxine Tablet) ??50 mg, By Mouth, Daily Remove Patch (Remove ??Patch) ??1 each, Topically, Daily Thiamine 100 mg Tablet (Thiamine Tablet) ??100 mg, By Mouth, 2 times a day CONTINUOUS: (0) PRN: (5) Loperamide 2 mg Capsule (loperamide 2 mg oral capsule) ??2 mg, By Mouth, Every 3 hours Lorazepam 1 mg Tablet (Ativan Tablet) ??1 mg, By Mouth, Every 2 hours Lorazepam 2 mg Tablet (Ativan Tablet) ??2 mg, By Mouth, Every 2 hours NaCl 0.9% Flush 3ml (NaCL 0.9% Flush) ??3 mL, IV Push, Every 8 hours nalOXONE ??400mcg/mL Inj (nalOXONE Inj) ??0.2 mg 0.5 mL, IV Push, Every 5 minutes Lab Results Cardiology Labs WBC: 9.6 k/mm3 (12/31/22) RBC:??3.52 m/mm3??Low (12/31/22) Hgb: 14 Gm/dL (12/31/22) Hct: 39.4 % (12/31/22) MCV:??111.9 femtoliters??High (12/31/22) MCH:??39.8 pg??High (12/31/22) MCHC: 35.5 g/dL (12/31/22) Platelet Count: 277 k/mm3 (12/31/22) RDW-SD:??52.4 femtoliters??High (12/31/22) Nucleated RBC (Automated): 0 #/100 WBC'S (12/31/22) Abs. Neut: 5 k/mm3 (12/29/22) Abs. Lymph: 1.7 k/mm3 (12/29/22) Abs. Grady: 0.5 k/mm3 (12/29/22) Abs. Eo: 0 k/mm3 (12/29/22) Abs. Baso: 0 k/mm3 (12/29/22) Neut %: 68.5 % (12/29/22) Grady %: 7.1 % (12/29/22) Eos %: 0 % (12/29/22) Baso %: 0.3 % (12/29/22) Imm Gran: 0.8 % (12/29/22) Abs. Imm Gran: 0.1 k/mm3 (12/29/22) Sodium: 139 mmol/L (12/31/22) Potassium: 3.7 mmol/L (12/31/22) Chloride: 99 mmol/L (12/31/22) Bicarbonate Level: 27 mmol/L (12/31/22) Glucose Level:??110 mg/dL??High (12/31/22) BUN: 9 mg/dL (12/31/22) Creatinine-Blood: 0.7 mg/dL (12/31/22) Calcium: 9.8 mg/dL (12/31/22) Protein, Total: 7.5 Gm/dL (12/29/22) Albumin: 3.7 Gm/dL (12/29/22) Alkaline Phosphatase:??128 units/L??High (12/29/22) AST (SGOT): 25 units/L (12/29/22) ALT (SGPT): 13 units/L (12/29/22) Bilirubin, Total: 0.6 mg/dL (12/29/22) Nt-Probnp:??4632 pg/mL??High (12/29/22) TSH: 0.44 uIU/mL (12/29/22) Diagnostic Impression ECG ECG 12-Lead * Preliminary * ?? 08:00:49 Please click on pdf link to open report ?? ECG 12-Lead * Preliminary * ?? 08:00:49 Ventricular Rate: 81 BPM Atrial Rate: 81 BPM P-R Interval: 112 ms QRS Duration: 90 ms Q-T Interval: 444 ms QTC Calculation(Bazett): 515 ms P Wildwood: 48 degrees R Wildwood: 50 degrees T Wildwood: 30 degrees Normal sinus rhythm Minimal voltage criteria for LVH, may be normal variant ( Sokolow-Mccullough ) Nonspecific ST abnormality Prolonged QT Abnormal ECG When compared with ECG of 30-DEC-2022 09:28, MANUAL COMPARISON REQUIRED, DATA IS UNCONFIRMED ?? Victor: , Echo Echocardiogram - Complete ?? 11:22:48 Summary The left ventricular ejection fraction is 45-50 %. There is akinesis-dyskinesis of the basal inferoseptal wall, basal-mid inferior wall and basal-mid inferolateral wall. Normal right ventricular size and function. No significant valvular disease. ?? Comparison No prior study available for comparison. ?? Signature ?? Signed By: Jim Merida MD Problem List/Past Medical History Ongoing No qualifying data Procedure/Surgical History No qualifying data available. Family History No family history recorded. * Rebecca Mendez: VERIFY, PERFORM, SIGN Event Display: Consultation Note Authored Date: Patient: DENTON JOHANSEN Age: 42 years Sex: Female : 1980 Associated Diagnoses: None Author: Rebecca Mendez Patient is interested in recovery resources. Patient is interested in MAT, methadone and has been referred to [facility],. No additional resources were needed at this time. Addiction Consultation Team [address] [place] [address] Patient: Denton Johansen (: 1980) Date: 12/31/2022 You have been referred to the following programs: [facility] [address] [facility] [address] Dosing Hours Mon-Fri from6:00am-12:00pm Sat-Sun 7:00am-10:00am Radiology * Event Display: NM Myocard Perf SPECT Multi Authored Date: * Event Display: NM Myocard Perf SPECT Multi Authored Date: Myocardial Perfusion Imaging Demographics Patient Name EDUARDO CHAWLA Gender Female [employer] Room Number M710 Height 65 inches Date of 1980 Weight 176.4 pounds Age 42 year(s) BSA 1.87 m2 Accession Number [id number] BMI 29.38 kg/m2 Date of study 01/02/2023 Resident Referring Physician Not on Staff Attending MD Christie RASCON Technologist [place] Physician Tyesha Redman Procedure Procedure Type: Myocardial Perfusion Imaging:NM Myocardial Perfusion Spect Multi Indications: Chest pain. Risk Factors The patient risk factors include:Current - Every day tobacco use and hypertension. Stress Protocols Resting ECG Sinus rhythm. Left Ventricular Hypertrophy. Resting HR:122 bpm Resting BP:110/64 mmHg Pre-stress physical exam: The patient's medications include Clonidine, Lasix, Losartan,Nicotine Patch, Folic Acid, Thiamine, Pyroxidine, Ativan, Loperamide, Morphine. Stress Protocol:Exercise - Modified Damir Peak HR:153 bpm HR response: Approp Chronotropic Response Peak BP:148/68 mmHg HR recovery: Abnormal heart rate recovery Predicted HR: 179 bpm BP response: Normal resting BP with % of predicted HR: 85 appropriate response Test duration:12 min HR/BP product:[id number] Reason for termination:Leg Fatigue Max exercise: 7 METS Functional capacity:Fair (reduced) Time of RP Injection:10:58 min Chest pain:No chest pain ST Changes:ST depression upsloping Arrhythmias No arrhythmias. Stress Interpretation Abnormal Exercise Tolerance Test. Moderate abnormality of exercise physiology. No EKG evidence of ischemia. Imaging Protocols - Two Day Rest Stress Isotope:Tc99m Sestamibi Isotope: Tc99m Sestamibi Isotope dose:10.7 mCi IV Isotope dose:30.5 mCi IV Date:01/02/2023 Date:01/03/2023 Time to Rest Imagin minutes Time to Stress Imagin minutes Technique: Gated Technique: Gated Supine Supine Imaging Results Study artifacts 1) Extracardiac activity Conclusions Summary 1. Myocardial perfusion imaging is probably normal. There is a predominantly fixed in the inferior wall. Findings can be secondary to scar or artifact. 2. LV function is normal at rest and stress with normal wall motion and thickening. 3. EKG portion of the stress test is reported separately. Signatures Note * Marilee Portillo RN: PERFORM Event Display: Discharge/Transfer Note Hospital Authored Date: Nursing Discharge Note Entered On: 01/06/2023 16:15 EST Performed On: 01/06/2023 16:14 EST by Marilee Portillo RN Nursing Discharge Note 2 Discharge Time : 01/06/2023 16:14 EST Discharge Level of Care at Discharge : [facility]/Police/[facility] Patient Left Unit Via : Ambulatory Patient Accompanied Off Unit with : Responsible adult DC Instructions Provided & Signed by Pt : Yes Patient Understands D/C Instructions : Yes Verbalized Understanding of D/C Plan By : Patient Patient Instructions Discharge Signed : Yes Discharge Comments : IV removed prior to D/C. Tele removed and brought to tele room. Did Pt have Specialty Bed or Wound Vac : No Marilee Portillo RN - 01/06/2023 16:14 EST * Chantale Sidhu MD: PERFORM, MODIFY Event Display: Discharge/Transfer Note Hospital Authored Date: Patient: ??DENTON JOHANSEN ? Age:??42 Years?Sex:??Female?:??1980?? Patient Information Discharge Location: Primary Care Physician: Nelda Meredith NP Admit Date/Time: 12/30/22 01:30 Discharge Disposition Discharge Disposition: Home: No Services Discharge Diagnosis Acute exacerbation of CHF (congestive heart failure) (I50.9) Hypertensive urgency (I16.0) Alcohol use disorder, severe, dependence (F10.20) Alcohol use with withdrawal (F10.939) CHF exacerbation (I50.9) Cocaine use disorder (F14.10) Opioid use disorder (F11.90) Prolonged QT interval (R94.31) ?? _ Discharge Medications Acamprosate (acamprosate 333 mg oral delayed release tablet)?2?tab(s)?666?Milligram?By Mouth?3 times a day Aspirin (aspirin 81 mg oral tablet)?81?Milligram?By Mouth?Daily Clonidine (cloNIDine 0.1 mg oral tablet)?0.1?Milligram?By Mouth?2 times a day Duloxetine (duloxetine 60 mg oral enteric coated capsule)?60?Milligram?By Mouth?Daily Durable Medical Equipment (Compression- Lower Extremity (Knee High))?See Instructions?apply to both legs daily to help with leg swelling. Remove at night Folic Acid (folic acid 1 mg oral tablet)?1?Milligram?1?tablet?By Mouth?Daily Furosemide (Lasix 20 mg oral tablet)?20?Milligram?By Mouth?Daily Gabapentin (gabapentin 100 mg oral capsule)?100?Milligram?By Mouth?Daily Loperamide (loperamide 2 mg oral capsule)?2?Milligram?By Mouth?Every 3 hours?as needed?Loose Stool Losartan (losartan 25 mg oral tablet)?25?Milligram?By Mouth?Daily?for 30?Days Methadone (methadone 10 mg oral tablet)?30?Milligram?By Mouth?Daily?for 3?Days Multivitamin (multivitamin Multiple Vitamins oral tablet)?1?tab(s)?By Mouth?Daily Omeprazole (omeprazole 20 mg oral delayed release tablet)?1?tab(s)?20?Milligram?By Mouth?Daily Ondansetron (ondansetron 4 mg oral tablet, disintegrating)?1?tab(s)?4?Milligram?By Mouth?Every 8 hours?as needed?as needed for nausea/vomiting Thiamine (thiamine 100 mg oral tablet)?100?Milligram?1?tablet?By Mouth?2 times a day ? Medications Started Aspirin (aspirin 81 mg oral tablet)?81?Milligram?By Mouth?Daily Furosemide (Lasix 20 mg oral tablet)?20?Milligram?By Mouth?Daily Methadone (methadone 10 mg oral tablet)?30?Milligram?By Mouth?Daily Losartan (losartan 25 mg oral tablet)?25?Milligram?By Mouth?Daily Gabapentin (gabapentin 100 mg oral capsule)?100?Milligram?By Mouth?Daily Duloxetine (duloxetine 60 mg oral enteric coated capsule)?60?Milligram?By Mouth?Daily Doses Changed Clonidine (cloNIDine 0.1 mg oral tablet)?0.1?Milligram?By Mouth?2 times a day Future Appointments 2023 1:05 PM EST ?? With: Rogerio FERNANDES, [facility] Where: [facility] [address] [place] [address]- Status: Pending Hospital Course ?? Denton is a 42-year-old female with past medical history of Opiate use disorder/IV drug use, alcohol use disorder, tobacco dependence presented from custody complaining of withdrawal, abdominal pain and shortness of breath. patient was found to be in opiate withdrawal and managed with methadone.?? Chest x-ray demonstrated cardiomegaly and congestion; BNP was elevated.?? Bedside ultrasound also showed CHF.?? Patient was given Lasix and admitted for new onset CHF ?? Acute diastolic CHF, improved Acute kidney injury, improved ??Shortness of breath, lower extremity swelling, congestion on chest x-ray, elevated BNP ??Slightly elevated troponin ??EKG with left ventricular hypertrophy; reciprocal changes ??ECHO: left ventricular ejection fraction is 45-50 %. There is akinesis- dyskinesis of the basal inferoseptal wall, basal-mid inferior wall and basal-mid inferolateral wall. Likely hypertensive heart disease and alcohol related heart disease PIPPA most likely in setting of overdiuresis Negative stress test doppler left leg : no DVT ??Plan Resume losartan and Lasix??given??normal kidney function Cardiology??signed off, to follow-up with them outpatient ?? Hypertensive urgency (I16.0), improved ??Uncontrolled blood pressure; probably also in the setting of polysubstance withdrawal Resumed losartan 25mg reduce clonidine to 0.1 BID as per addiction recs due to prolonged QTc ?? Opioid use disorder (F11.90) ??Said she uses about a bag a day which is minimal. s 01/04: QTc less than 500, okay to start 30 mg daily.?? 01/06: QTc 481 plan patient is tolerating methadone 30 mg without any difficulty. No further craving, mood calm ?? *If pt is released from police custody next week and is able to d/c to the community: She has been referred to [facility] in [place] ([address]) just in case she is released while here. This clinic is able to provide either methadone or suboxone. If on methadone, she will need to bring the last dose letter for the methadone, d/c summary, and hospital wristband to the clinic the following morning for dosing. ?? *If pt is d/c back to shelter from here, the shelter will work out methadone or suboxone dosing there. Itcan take a few days for either to be resumed.. ?? Alcohol use disorder, severe, dependence (F10.20) ??Alcohol use with withdrawal (F10.939) ??CIWA cancelled continue thiamine, folic acid ? 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 Tobacco dependence ??Counseled to quit, offered??NRT ?? Patient hemodynamically stable,??QTc normalized,??no withdrawal??while being on methadone 30 mg, she will be discharged today. Patient in agreement with the discharge planning ?? Objective Vital Signs?? Temperature: 97.4 DegF (01/06/23 07:46:00) Temperature Route: Temporal (01/06/23 07:46:00) Pulse Rate:??108 bpm??High (01/06/23 07:46:00) Respiratory Rate: 20 br/min (01/06/23 11:31:00) Systolic Blood Pressure: 124 mm Hg (01/06/23 10:30:00) Diastolic Blood Pressure:??86 mm Hg??High (01/06/23 10:30:00) Blood pressure sites: Arm, right (01/06/23 07:46:00) Mean Arterial Pressure: 93 mm Hg (01/06/23 07:46:00) Pulse Pressure: 36 mm Hg (01/06/23 07:46:00) Oxygen Saturation: 98 % (01/06/23 07:46:00) Mode of Delivery (Oxygen): Room air (01/06/23 07:46:00) Early Warning Score: 3 (01/06/23 11:34:22) ? . Physical Exam Constitutional: Alert, in no distress. Mental Status: Oriented to person, place and time. Head: Normocephalic. Neck: Supple, Full range of motion. Respiratory: Clear to auscultation. No wheezing, rales or rhonchi. Cardiovascular: S1 S2 regular. No murmurs, rubs or gallops. Gastrointestinal: Abdomen soft, non-tender, non-distended. Normal bowel sounds. No pulsatile mass. No hepatosplenomegaly. Genitourinary: No costovertebral angle tenderness. Neurologic: Cranial nerves II-XII grossly intact. No focal neurological deficits.. Psychiatric: Normal mood and affect Pending Results Add On Lab Order ordered on 12/29/2022 Add On Lab Order ordered on 12/30/2022 Patient Education Titles Alcoholism: Getting Help?? Treating Drug Abuse and Addiction?? Substance Abuse and Traumatic Brain Injury?? Discharge Instructions for Heart Failure?? Follow-Up Appointments Added Follow Up ?Time Frame ?Comments Nelda Meredith NP?2 to 3 weeks Patient Instructions Please follow-up with PCP and cardiology??outpatient. ?? If you are??released from police custody and able to d/c to the community:??you are??being??referred to [facility] in [place] ([address]??This clinic is able to provide either methadone. You??will needto bring the last dose letter for the methadone, d/c summary, and hospital wristband to the clinic the following morning for dosing. ?? Home Health Face to Face ^HomeHealthFTF 40??minutes spent on discharge ?? The note was dictated by using dragon. All grammatical and typographical errors were corrected to the best of my knowledge. Please do not hesitate to contact me with any questions. ?? Chantale Sidhu MD Pager: [phone] ?? * Verna Mack RN: PERFORM Event Display: Patient Education/Instruction Authored Date: Inpatient Adult Discharge Instructions [place] [id number] Name: DENTON JOHANSEN : 1980 Visit: 12/30/2022 01:30:00 Current Date: 01/06/2023 14:11 Account: [id number] Inpatient Adult Discharge Instructions We would like to thank you for allowing us to assist you with your healthcare needs. The following includes patient education materials and information regarding your injury/illness. Our entire staffstrives to provide an excellent experience for our patients and their families. PLEASE ENSURE YOU FOLLOW-UP PER THE INSTRUCTIONS BELOW! ?? YOUR OPINION IS IMPORTANT TO US! Please complete the survey you may receive by mail or email. Your feedback will be used to make improvements to the healthcare experiences of our patients and their families. Surveys are administered by [employer] ?? If further treatment with your primary care physician or another doctor is recommended, it is important for you to keep the appointment. Call your primary care physician or return to the Emergency Department immediately if your condition worsens, fails to improve, or new symptoms develop. If you need to find a doctor, you can call [facility] [employer] Link for a referral at [phone] or toll free at [phone]) or log in to [email or web address].. ?? [facility], in keeping with [facility] guidance, no longer requires face masks for staff, patientsor visitors in most situations. Similiar to time spent indoors at other locations, there is the chance that you were exposed to repiratory viruses during your time with us (such as flu or COVID-19). If you develop symptoms concerning for a viral respiratory infection, please seek testing (and treatment if indicated) from your medical provider or home test kit. ?? You can view and manage your care through the patient portal or by using a health care bubba of your choosing. [employer] is a website that allows you to securely view your medical information including your hospital discharge summary, office visit summaries, medications and follow-up visits. You can also request appointments, renew medications, and request access to your medical information using a health care bubba of your choosing, or just ask a question. You can enroll at [email or web address] or register during your next office visit. You have been discharged from [facility], Patient Care Unit: M7. If you have any questions regarding these instructions after you leave, please call us and we will be happy to assist you. [facility] Your Care Team Attending Physician Nahum FERNANDES, Chantale Consulting Providers Devan Nicholson DO; Lubna FERNANDES, Mary Chow Discharging Providers Nahum FERNANDES, Chantale Reason for [facility] with c/o abdominal pain and withdrawing from etoh and fentanyl. Pt reports last use 3 days prior to presentation. Your Diagnosis CHF exacerbation Alcohol use disorder, severe, dependence Opioid use disorder Alcohol use with withdrawal Acute exacerbation of CHF (congestive heart failure) Hypertensive urgency Opioid use disorder Cocaine use disorder Prolonged QT interval Tests Performed Below is a partial list of the tests performed during your hospitalization. You may have had other tests and procedures not included in this list. Please discuss all test results with your provider. Alcohol Level Amphetamine Urine Screen Barbiturate Urine Screen Basic Metabolic Panel Benzodiazepine Urine Screen BUN Calcium Level Cannabinoid Urine Screen CBC CBC w/ Differential Cocaine Urine Screen Comprehensive Metabolic Panel COVID-19, RSV, and Flu A/B, Rapid PCR Creatinine Electrolytes Glucose Level GLUCOSE POC High Sensitivity Troponin T HOLD BLUE TUBE HOLD LAVENDER TUBE Lactate Level Lipase MAGNESIUM Mg Level Opiate Screen Urine Phosphorus Level Potassium Level Serum Qualitative PROBNP Troponin T, High Sensitivity TSH with T4 Reflex (Adults Only) Doppler Ext Lower Venous Left (US) XR Chest 2 Views Frontal and Lat Primary Care Provider Nelda Meredith NP Advance Directive Health Care Proxy on File No Patient refuses to discuss Discharge Vitals Temperature: 97.4 DegF Height: 165 cm Pulse Rate:??108 bpm??High Weight: 74.3 kg Respiratory Rate: 20 br/min Body Mass Index:??29.2 kg/m2??High Systolic Blood Pressure: 124 mm Hg Body surface area: 1.91 Diastolic Blood Pressure:??86 mm Hg??High ?? Oxygen Saturation: 98 % ?? Studies Pending All tests and labs ordered during this hospital stay have been completed unless listed below. Please discuss all pending results with your provider listed above in these instructions. ?? Add On Lab Order What to do next Instructions From Your Doctor Please follow-up with PCP and cardiology??outpatient. ?? If you are??released from police custody and able to d/c to the community:??you are??being??referred to [facility] in [place] ([address] [facility]).??This clinic is able to provide either methadone. You??will needto bring the last dose letter for the methadone, d/c summary, and hospital wristband to the clinic the following morning for dosing. ?? Discharge Orders Scheduled Follow-Up Appointments 2023 1:05 PM EST ?? With: Rogerio FERNANDES, Partha Where: [facility] [address] [place] [address]- Status: Pending You Need to Schedule the Following Appointments Follow Up with??Masoud HARRINGTON, Nelda When:??Within 2 to 3 weeks Where: [address] [place] [address]- Discharge Medications DENTON JOHANSEN :1980 Visit Date:12/30/2022 Medications: Please continue your medications until treatment is completed or stopped by your provider. Medications not listed below should be discontinued. Discuss any questions related to medications with your provider. What How Much When Instructions Next Dose New Aspirin (aspirin 81 mg oral tablet) 81 Milligram Oral Daily Pickup at [place] [address] tomorrow at 8am New Duloxetine (duloxetine 60 mg oral enteric coated capsule) 60 Milligram Oral Daily Pickup at [place] [address] tomorrow at 8am New Furosemide (Lasix 20 mg oral tablet) 20 Milligram Oral Daily Pickup at [place] [address] tomorrow 8am New Gabapentin (gabapentin 100 mg oral capsule) 100 Milligram Oral 3 times a day Pickup at [facility] 3 today at 3pm New Losartan (losartan 25 mg oral tablet) 25 Milligram Oral Daily Pickup at [place] [address] tomorrow at 8am New Methadone (methadone 10 mg oral tablet) 30 Milligram Oral Daily tomorrow at 8am Changed Clonidine (cloNIDine 0.1 mg oral tablet) 0.1 Milligram Oral Twice a day Pickup at [facility] 3 tonight at 8pm Unchanged Acamprosate (acamprosate 333 mg oral delayed release tablet) 2 tab(s) Oral 3 times a day today at 3pm Unchanged Durable Medical Equipment (Compression- Lower Extremity (Knee High)) See instructions apply to both legs daily to help with leg swelling. Remove at night ?? equipment Unchanged Folic Acid (folic acid 1 mg oral tablet) 1 tab(s) Oral Daily tomorrow at 8am Unchanged Loperamide (loperamide 2 mg oral capsule) 2 Milligram Oral Every 3 hours as needed for Loose Stool as needed every 3 hours for loose stools Unchanged Multivitamin (multivitamin Multiple Vitamins oral tablet) 1 tab(s) Oral Daily tomorrow at 8am Unchanged Omeprazole (omeprazole 20 mg oral delayed release tablet) 1 tab(s) Oral Daily tomorrow at 8am Unchanged Ondansetron (ondansetron 4 mg oral tablet, disintegrating) 1 tab(s) Oral Every 8 hours as needed for as needed for nausea/vomiting every 8 hours as needed for nasea and vomiting Unchanged Thiamine (thiamine 100 mg oral tablet) 1 tab(s) Oral Twice a day tonight at 8pm Pharmacy Information [facility] 3: [address], [place] [id number] [phone] Test Results Below is a partial list of the most recent Laboratory test results done prior to this discharge. You may have had other tests and procedures not included in this list. Please discuss all test resultswith your provider. Est Creatinine Clearance - 83.14 mL/min (01/04/2023) Alcohol Level (12/29/2022) ???Ethanol, Serum or Plasma - NONE DETECTED Amphetamine Urine Screen (12/30/2022) ???Amphetamine Screen, Urine - NONE DETECTED Barbiturate Urine Screen (12/30/2022) ???Barbiturate Screen, Urine - NONE DETECTED Basic Metabolic Panel (01/05/2023) ???Sodium - 136 mmol/L???Potassium - HEMOLYZED???Chloride - 97 mmol/L???Bicarbonate Level - 24 mmol/L???Anion Gap - 15???Glucose Level - 85 mg/dL???BUN - 17 mg/dL???Creatinine-Blood - 0.8 mg/dL???Estimated GFR Creatinine - 96 ML/MIN/1.73 M2???Calcium - 10.1 mg/dL Benzodiazepine Urine Screen (12/30/2022) ???Benzodiazepine Screen, Urine - POSITIVE BUN (01/02/2023) ???BUN - 23 mg/dL Calcium Level (01/02/2023) ???Calcium - 10.5 mg/dL Cannabinoid Urine Screen (12/30/2022) ???Cannabinoid Screen, Urine - NONE DETECTED CBC (01/05/2023) ???WBC - 8.8 k/mm3???RBC - 3.61 m/mm3???Hgb - 13.8 Gm/dL???Hct - 39.3 %???MCV - 108.9 femtoliters???MCH - 38.2 pg???MCHC - 35.1 g/dL???Platelet Count - 265 k/mm3???RDW-SD - 52.4 femtoliters???MPV - 10.6 femtoliters???Nucleated RBC (Automated) - 0.0 #/100 WBC'S???Abs. NRBC - 0.0 k/mm3 CBC w/ Differential (12/29/2022) ???WBC - 7.3 k/mm3???RBC - 3.28 m/mm3???Hgb - 13.1 Gm/dL???Hct - 38.0 %???MCV - 115.9 femtoliters???MCH - 39.9 pg???MCHC - 34.5 g/dL???Platelet Count - 282 k/mm3???RDW-SD - 55.8 femtoliters???MPV - 9.4 femtoliters???Nucleated RBC (Automated) - 0.4 #/100 WBC'S???Abs. NRBC - 0.0 k/mm3???Abs. Neut - 5.0 k/mm3???Abs. Lymph - 1.7 k/mm3???Abs. Grady - 0.5 k/mm3???Abs. Eo - 0.0 k/mm3???Abs. Baso - 0.0 k/mm3???Neut % - 68.5 %???Lymph % - 23.3 %???Grady % - 7.1 %???Eos % - 0.0 %???Baso % - 0.3 %???Imm Gran - 0.8 %???Abs. Imm Gran - 0.1 k/mm3 Cocaine Urine Screen (12/30/2022) ???Cocaine Metabolite Screen, Urine - NONE DETECTED Comprehensive Metabolic Panel (12/29/2022) ???Sodium - 142 mmol/L???Potassium - 3.4 mmol/L???Chloride - 100 mmol/L???Bicarbonate Level - 27 mmol/L???Anion Gap - 15???Glucose Level - 119 mg/dL???BUN - 4 mg/dL???Creatinine-Blood - 0.5 mg/dL???Estimated GFR Creatinine - 120 ML/MIN/1.73 M2???Calcium - 9.8 mg/dL???Protein, Total - 7.5 Gm/dL???Alb umin - 3.7 Gm/dL???AG Ratio - 1.0???Alkaline Phosphatase - 128 units/L???AST (SGOT) - 25 units/L???ALT (SGPT) - 13 units/L???Bilirubin, Total - 0.6 mg/dL COVID-19, RSV, and Flu A/B, Rapid PCR (12/29/2022) ???Influenza A PCR - NEGATIVE???Influenza B PCR - NEGATIVE???RSV PCR - NEGATIVE???COVID-19 PCR Specimen Source - NASAL???COVID-19 PCR Result - NEGATIVE Creatinine (01/02/2023) ???Creatinine-Blood - 1.2 mg/dL???Estimated GFR Creatinine - 59 ML/MIN/1.73 M2 Electrolytes (01/02/2023) ???Sodium - 135 mmol/L???Potassium - 4.4 mmol/L???Chloride - 94 mmol/L???Bicarbonate Level - 22 mmol/L???Anion Gap - 19 Glucose Level (01/02/2023) ???Glucose Level - 105 mg/dL GLUCOSE POC (01/05/2023) ???Glucose, POC - 96 mg/dL High Sensitivity Troponin T (12/30/2022) ???High Sensitivity Troponin (HSTnT) - 48 ng/L HOLD BLUE TUBE (12/29/2022) ???Hold Blue Top - SPECIMEN DISCARDED AFTER 4 HOURS. HOLD LAVENDER TUBE (01/02/2023) ???Hold Lavender Top - SPECIMEN DISCARDED AFTER 24 HOURS. Lactate Level (12/29/2022) ???Lactate - 1.0 mmol/L Lipase (12/29/2022) ???Lipase - 14 units/L MAGNESIUM (12/30/2022) ???Magnesium - 1.8 mg/dL Mg Level (01/02/2023) ???Magnesium - 1.7 mg/dL Opiate Screen Urine (12/30/2022) ???Opiate Screen, Urine - NONE DETECTED Phosphorus Level (12/31/2022) ???Phosphorus - 2.9 mg/dL Potassium Level (12/30/2022) ???Potassium - 3.2 mmol/L Serum Qualitative (12/29/2022) ??? Serum Qual - NEGATIVE PROBNP (12/29/2022) ???Nt-Probnp - 4632 pg/mL Troponin T, High Sensitivity (12/30/2022) ???High Sensitivity Troponin (HSTnT) - 35 ng/L TSH with T4 Reflex (Adults Only) (12/29/2022) ???TSH - 0.44 uIU/mL Allergies (NKA means No Known Allergies) NKA Problems No qualifying data available Education Materials Below is the list of Educational Leaflet Providered with your Discharge Instructions. Methadone Oral Tablet?? Losartan Oral Tablet?? Furosemide Oral Tablet?? Clonidine Oral Tablet?? Acamprosate Delayed Release Oral Tablet?? Alcoholism: Getting Help?? How to Take Your Blood Pressure at Home?? Low-Salt Choices?? Heart Failure: Warning Signs of a Flare-Up?? Heart Failure: Making Changes to Your Diet?? Heart Failure: Tracking Your Weight?? Discharge Instructions for Heart Failure?? Heart Failure Zones?? Heart Failure Discharge Instructions for Heart Failure?? Diet, Low Salt 3gm?? Alcoholism: Getting Help?? Treating Drug Abuse and Addiction?? Substance Abuse and Traumatic Brain Injury?? Discharge Instructions for Heart Failure?? Valuables and Belongings I fully understand and agree that [facility] accepts no responsibility for all my personal property including clothing, toilet articles, radios, jewelry, dentures, hearing aids, rings, money, or any other property that is in my possession or is brought to me after admission. I understand certain valuables may be placed in a hospital safe for a short period of time. I understand that the hospital is not liable for loss or damage due to accident, fire, or other natural occurrence while said property is in the safe. I accept full responsibility for any personal property that I keep with me, and will not hold the hospital responsible in case of loss or disappearance. I acknowledge that i have been encouraged to send valuables and belongings home. ?? Review of Valuable and Belonging List: With patient Date for Pt to Sign Valuables/Belongings: 12/30/22 03:19:00 ?? Other Discharge Information ? Pulmonary Rehab Status?? Pulmonary Rehab Discharge Status?? Respiratory Rate: 20 br/min ? Common Emergency Awareness Tips IS IT A STROKE? Act FAST and Check for these signs: FACE Does the face look uneven? ARM Does one arm drift down? SPEECH Does their speech sound strange? TIME Call at any sign of stroke ?? Heart Attack Signs Chest discomfort: Most heart attacks involve discomfort in the center of the chest and lasts more than a few minutes, or goes away and comes back. It can feel like uncomfortable pressure, squeezing, fullness or pain. Discomfort in upper body: Symptoms can include pain or discomfort in one or both arms, back, neck, jaw or stomach. Shortness of breath: With or without discomfort. Other signs: Breaking out in a cold sweat, nausea, or lightheaded. Remember, MINUTES DO MATTER. If you experience any of these heart attack warning signs, call to get immediate medical attention! ?? Smoking can increase your chances of developing chronic health problems and can cause harmful effects to other family members in your house. If you smoke, you are strongly encouraged to quit. Please call [facility] [employer] at [phone] or [phone] ([phone]) or log in to [email or web address] for referrals to smoking cessation programs. ?? 315 Suicide & Crisis Lifeline is available 10/09 if you or someone you know needs to find a reason to keep living. By calling 556 you'll be connected to a skilled, trained counselor at a crisis center in your area. INPATIENT DISCHARGE INSTRUCTIONS SIGNATURE PAGE DENTON JOHANSEN Location:[facility] Registration Date and Time:12/30/2022 01:30 EST Primary Care Physician: Nleda Meredith NP, Attending Physician: Chantale Sidhu MD, I DENTON JOHANSEN, have received the above patient education materials/instructions and have verbalized understanding. If ambulance or transport services are being used I further acknowledge being given a choice of service. ?? If you need to contact me, please call me at this number: . Patient/Blackjack Pit Boss Name: Patient/Blackjack Pit Boss Signature: Relationship to Patient: Witness Name/Signature: Date: * Verna Mack RN: PERFORM Event Display: Patient Education Leaflets Authored Date: [id number] Methadone Oral Tablet ?? [address] Methadone Oral Tablet Brands: Dolophine Uses This medicine is used for the following purposes: ??? drug addiction ??? pain ?? Instructions You may take with food to prevent stomach upset. Store at room temperature away from heat, light, and moisture. Do not keep in the bathroom. Please ask your doctor, nurse, or pharmacist how to discard unused medicines safely. To reduce constipation, eat high fiber foods, drink plenty of water and exercise. Tell your doctor if you have severe or persistent sweating, diarrhea or vomiting. These can increase your risk of a serious side effect. If you forget to take a dose on time, take it as soon as you remember. If it is almost time for thenext dose, do not take the missed dose. Return to your normal schedule. Do not take 2 doses at one time. Drug interactions can change how medicines work or increase risk for side effects. Tell your healthcare providers about all medicines taken. Include prescription and lgfu-iiv-wjmwies medicines, vitamins, and herbal medicines. Speak with your doctor or pharmacist before starting or stopping any medicine. Tell your doctor if symptoms do not get better or if they get worse. ?? Cautions This medicine has an opioid. Opioids help many people but may cause addiction, especially if used for a long time. The addiction risk is higher if you have a substance use disorder (overuse of or addiction to drugs or alcohol). Ask your doctor about the benefits and risks. Ask your doctor or pharmacist if you should have naloxone on hand to treat opioid overdose. Teach your family or household members about the signs of an opioid overdose and how to treat it. If you stop this medicine suddenly after using it for a long time, you may have withdrawal. Your doctor may slowly lower your dose before stopping it. Tell your doctor right away if you have symptoms, such as unusual sweating, watering eyes, runny nose, chills, diarrhea, yawning, muscle aches, restlessness, anxiety, trouble sleeping, or thoughts of suicide. Tell your doctor and pharmacist if you ever had an allergic reaction to a medicine. Do not use the medication any more than instructed. If possible, avoid using with alcohol, marijuana, or other medicines that can cause dizziness or drowsiness. These include allergy/cold products, muscle relaxers, sleep aids, and pain relievers. Your ability to stay alert or to react quickly may be impaired by this medicine. Do not drive or operate machinery until you know how this medicine will affect you. This medicine passes into breast milk. Ask your doctor before . This medicine can hurt a new baby in the womb. If you become while on this medicine, tell your doctor immediately. Your doctor may switch you to a different medicine. This medicine should be used with caution in patients with breathing difficulties. Call your doctor right away if you notice slow or shallow breathing. Do not share this medicine with anyone who has not been prescribed this medicine. Some patients have serious side effects from this medicine. Ask your pharmacist to show you the information from the Food and Drug Administration (FDA) and discuss it with you. ?? Side Effects The following is a list of some common side effects from this medicine. Please speak with your doctor about what you should do if you experience these or other side effects. ??? decreased appetite ??? constipation ??? dizziness or drowsiness ??? dry mouth ??? lightheadedness ??? nausea and vomiting ??? sweating Call your doctor or get medical help right away if you notice any of these more serious side effects: ??? decreased awareness or responsiveness ??? breathing interruption during sleep ??? shallow, irregular breathing ??? changes in memory, mood, or thinking ??? confusion ??? fainting ??? hallucinations (unusual thoughts, seeing or hearing things that are not real) ??? fast or irregular heart beats ??? seizures ??? severe stomach or bowel pain ??? unusual or unexplained tiredness or weakness ??? difficulty or discomfort urinating ??? weight loss A few people may have an allergic reaction to this medicine. Symptoms can include difficulty breathing, skin rash, itching, swelling, or severe dizziness. If you notice any of these symptoms, seek medical help quickly. ?? Extra Please speak with your doctor, nurse, or pharmacist if you have any questions about this medicine. ?? [email or web address] IMPORTANT NOTE: This document tells you briefly how to take your medicine, but it does not tell youall there is to know about it. Your doctor or pharmacist may give you other documents about your medicine. Please talk to them if you have any questions. Always follow their advice. There is a more complete description of this medicine available in [place]. Scan this code on your smartphone or tablet or use the web address below. You can also ask your pharmacist for a printout. If you have any questions, please ask your pharmacist. The display and use of this drug information is subject to Terms of Use. Copyright(c) 2022 [employer]. ?? [employer]. All rights reserved. This information is not intended as a substitute for professional medical care. Always follow your healthcare professional's instructions. ?? * Verna Mack RN: PERFORM Event Display: Patient Education Leaflets Authored Date: [id number] Losartan Oral Tablet ?? [id number] Losartan Oral Tablet Brands: Ottonieljunar Uses This medicine is used for the following purposes: ??? diabetic complications ??? heart failure ??? high blood pressure ??? kidney disease ?? Instructions This medicine may be taken with or without food. This medicine will work best if you take it at about the same time every day. Store at room temperature away from heat, light, and moisture. Do not keep in the bathroom. Talk to your doctor before eating foods with large amounts of potassium. Potassium is often found in salt substitutes. Your doctor may want you to reduce the amount of these foods. Tell your doctor if you have severe or persistent sweating, diarrhea or vomiting. These can increase your risk of a serious side effect. It is important that you keep taking each dose of this medicine on time even if you are feeling well. If you forget to take a dose on time, take it as soon as you remember. If it is almost time for thenext dose, do not take the missed dose. Return to your normal schedule. Do not take 2 doses at one time. Drug interactions can change how medicines work or increase risk for side effects. Tell your healthcare providers about all medicines taken. Include prescription and onvy-tlw-gnoeyoj medicines, vitamins, and herbal medicines. Speak with your doctor or pharmacist before starting or stopping any medicine. Tell your doctor if symptoms do not get better or if they get worse. Keep all appointments for medical exams and tests while on this medicine. ?? Cautions Tell your doctor and pharmacist if you ever had an allergic reaction to a medicine. Do not use the medication any more than instructed. This medicine may cause dizziness or fainting, especially after exercising or in hot weather. Be very careful when standing or sitting up quickly. Your ability to stay alert or to react quickly may be impaired by this medicine. Do not drive or operate machinery until you know how this medicine will affect you. Please check with your doctor before drinking alcohol while on this medicine. Contact your doctor if you notice a change in the amount or darkening of your urine. It is unknown if this medicine passes into breast milk. Ask your doctor before . This medicine can hurt a new baby in the womb. If you become while on this medicine, tell your doctor immediately. Your doctor may switch you to a different medicine. Do not share this medicine with anyone who has not been prescribed this medicine. ?? Side Effects The following is a list of some common side effects from this medicine. Please speak with your doctor about what you should do if you experience these or other side effects. ??? dizziness ??? lightheadedness Call your doctor or get medical help right away if you notice any of these more serious side effects: ??? swelling of the face, mouth, tongue or throat ??? fainting ??? fast, irregular, or slow heartbeat ??? muscle weakness ??? urinating less often A few people may have an allergic reaction to this medicine. Symptoms can include difficulty breathing, skin rash, itching, swelling, or severe dizziness. If you notice any of these symptoms, seek medical help quickly. ?? Extra Please speak with your doctor, nurse, or pharmacist if you have any questions about this medicine. ?? [email or web address] IMPORTANT NOTE: This document tells you briefly how to take your medicine, but it does not tell youall there is to know about it. Your doctor or pharmacist may give you other documents about your medicine. Please talk to them if you have any questions. Always follow their advice. There is a more complete description of this medicine available in Welsh. Scan this code on your smartphone or tablet or use the web address below. You can also ask your pharmacist for a printout. If you have any questions, please ask your pharmacist. The display and use of this drug information is subject to Terms of Use. Copyright(c) 2022 [employer]. ?? [employer]. All rights reserved. This information is not intended as a substitute for professional medical care. Always follow your healthcare professional's instructions. ?? * Verna Mack RN: PERFORM Event Display: Patient Education Leaflets Authored Date: [id number] Furosemide Oral Tablet ?? [id number] Furosemide Oral Tablet Brands: Lasix Uses This medicine is used for the following purposes: ??? high blood pressure ??? swelling ?? Instructions This medicine may be taken with or without food. This medicine will work best if you take it at about the same time every day. Keep the medicine at room temperature. Avoid heat and direct light. This medicine will make you urinate more. If you have difficulty passing urine, please tell your doctor. This medicine can make you sensitive to the sun. Use sunscreen or protective clothing when in sun. It is important that you keep taking each dose of this medicine on time even if you are feeling well. If you forget to take a dose on time, take it as soon as you remember. If it is almost time for thenext dose, do not take the missed dose. Return to your normal schedule. Do not take 2 doses at one time. Tell your doctor and pharmacist about all your medicines. Include prescription and wjcx-wqv-ffqeilcahvcrmood, vitamins, and herbal medicines. Do not suddenly stop taking this medicine. Check with your doctor before stopping. This medicine may affect your blood sugar levels. If you have diabetes, talk to your doctor before changing the dose of your diabetes medicine. It is very important that you follow your doctor's instructions for all blood tests. ?? Cautions Tell your doctor and pharmacist if you ever had an allergic reaction to a medicine. Some patients taking this medicine have experienced serious side effects. Please speak with your doctor to understand the risks and benefits associated with this medicine. Do not use the medication any more than instructed. This medicine may cause dizziness or fainting, especially after exercising or in hot weather. Be very careful when standing or sitting up quickly. Your ability to stay alert or to react quickly may be impaired by this medicine. Do not drive or operate machinery until you know how this medicine will affect you. Please check with your doctor before drinking alcohol while on this medicine. This medicine passes into breast milk. Ask your doctor before . During , this medicine should be used only when clearly needed. Talk to your doctor about the risks and benefits. Do not start or stop any other medicines without first speaking to your doctor or pharmacist. Do not share this medicine with anyone who has not been prescribed this medicine. ?? Side Effects The following is a list of some common side effects from this medicine. Please speak with your doctor about what you should do if you experience these or other side effects. ??? constipation ??? dizziness ??? dry mouth ??? lack of energy and tiredness ??? headaches ??? high blood sugar ??? low blood pressure ??? red, burning, or itchy skin ??? stomach upset or abdominal pain ??? increased urinary frequency ??? blurring or changes of vision If you have any of the following side effects, you may be getting too much medicine. Please contactyour doctor to let them know about these side effects. ??? confusion ??? drowsiness or sedation ??? fainting ??? numbness or tingling in hands and feet ??? irritability ??? muscle pain or weakness ??? tight or rigid muscles ??? thirst ??? unsteadiness while walking Call your doctor or get medical help right away if you notice any of these more serious side effects: ??? shallow, irregular breathing ??? changes in memory, mood, or thinking ??? ear problems (ringingin the ears, hearing loss) ??? fast or irregular heart beats ??? signs of kidney damage (such as change in urine color or bubbly urine) ??? kidney stones ??? signs of liver damage (such as yellowing of eye or skin, dark urine, or unusual tiredness) ??? seizures ??? light colored stool ??? severe orpersistent vomiting A few people may have an allergic reaction to this medicine. Symptoms can include difficulty breathing, skin rash, itching, swelling, or severe dizziness. If you notice any of these symptoms, seek medical help quickly. ?? Extra Please speak with your doctor, nurse, or pharmacist if you have any questions about this medicine. ?? [email or web address] IMPORTANT NOTE: This document tells you briefly how to take your medicine, but it does not tell youall there is to know about it. Your doctor or pharmacist may give you other documents about your medicine. Please talk to them if you have any questions. Always follow their advice. There is a more complete description of this medicine available in [place]. Scan this code on your smartphone or tablet or use the web address below. You can also ask your pharmacist for a printout. If you have any questions, please ask your pharmacist. The display and use of this drug information is subject to Terms of Use. Copyright(c) 2022 [employer]. ?? The [employer]. All rights reserved. This information is not intended as a substitute for professional medical care. Always follow your healthcare professional's instructions. ?? Patient Care team information Care Team Personnel Name: Nesha Calhoun RN Position: [facility] SN RN Member Role: Primary Care Nurse Name: Brianne Delcid RN Position: [facility] ED RN W/OE and Tasks Member Role: Primary Care Nurse Name: Balbina Doyle RN Position: [facility] AMB Nurse Member Role: Primary Care Nurse Name: Elan Win RN Position: [facility] RN Member Role: Primary Care Nurse Name: Nelda Meredith NP Position: Reference Physician Member Role: PCP Address: Address: [address] [place] [address] Name: Yuni Oh RN Position: [facility] SN RN Member Role: Primary Care Nurse Name: Celena Bajwa RN Position: [facility] SN RN Member Role: Primary Care Nurse Name: Nesha Dan RN Position: [facility] SN RN Member Role: Primary Care Nurse Name: Lisbeth Christian RN Position: [facility] RN Member Role: Primary Care Nurse Name: LOLIS, ED Attending Position: [facility] ED Attendings Patient Name: *QUINTIN Inpt Attending Position: [facility] ED Medicine MD Name: Itzel Arreola Position: [facility] ED RN W/OE and Tasks Member Role: Patient Care Provider Name: Sri Singh Position: [facility] ED TA [facility] Member Role: Health Care / Medical Job Titles Name: Faye Faustin Position: [facility] ED OA Charge Member Role: ED Associate Care Team Related Persons Name: [facility] Address: [address] [address]
--- NOTE | 2023-01-18 02:37 | PC.NURSE ---
provider Albert verbal okay to give pt methadone dose.
[2023-01-18 03:00] VITALS: BP 168/99; PULSE 82; RESP 16; TEMP 36.8; O2SAT 95
[2023-01-18] MEDS: methADONE HCl 10 MG TABLET 20 MG PO (03:06)
--- NOTE | 2023-01-18 03:06 | PC.NURSE ---
this rn walked pt to decon to retrieve items from security.
== END 2023-01-18 03:53 | disposition home or self-care (01) ==
PROVIDERS: Emergency Provider Student in an Organized Health Care Education/Training Program; PCP Family Medicine
DX: T40.1X1A Poisoning by heroin, accidental (unintentional), initial encounter (principal); Y92.9 Unspecified place or not applicable; Z71.51 Drug abuse counseling and surveillance of drug abuser; F17.210 Nicotine dependence, cigarettes, uncomplicated; Z79.899 Other long term (current) drug therapy; Z71.6 Tobacco abuse counseling
CPT/HCPCS: 99284; 99285

== ENCOUNTER 2023-06-04 23:03 | Emergency (ER) | payer MEDICAID, SELFPAY ==
--- NOTE | 2023-06-04 | ECG_ITS ---
Test Reason : CHEST PAIN Blood Pressure : / mmHG Vent. Rate : 076 BPM Atrial Rate : 076 BPM P-R Int : 126 ms QRS Dur : 082 ms QT Int : 402 ms P-R-T Axes : 048 033 039 degrees QTc Int : 452 ms Normal sinus rhythm Cannot rule out Anterior infarct , age undetermined Abnormal ECG When compared with ECG of 26-JUL-2022 14:14, No significant change was found Referred By: Generic ED Physician Electronically Signed By:CRISTY SINHA
--- NOTE | ~2023-06-04 | XR_ITS ---
EXAMINATION: XR CHEST CLINICAL INFORMATION: Chest pain COMPARISON: 01/11/2023 TECHNIQUE: 2 views of the chest were obtained. FINDINGS: The lungs are clear with no focal consolidation. No evidence of pneumothorax, pulmonary edema, or pleural effusions. Cardiac size is within normal limits. There is suggestion of a small hiatal hernia. No acute osseous findings are seen. XR/XR chest 2V IMPRESSION: No acute cardiopulmonary findings. Suggestion of small hiatal hernia.
--- NOTE | ~2023-06-04 | CT_ITS ---
EXAMINATION: CT ABDOMEN AND PELVIS WITH CONTRAST CLINICAL INFORMATION: Left upper quadrant pain, nausea/vomiting, EtOH COMPARISON: None available. TECHNIQUE: Multidetector volumetric images were obtained from the superior aspect of the liver through the pubic symphysis following administration 85 mL of Omnipaque 350 intravenous contrast. Sagittal and coronal reformatted images were obtained on the technologist's workstation. Oral contrast: No This CT examination was performed using dose optimization techniques as appropriate, variously including the following: *Automated exposure control *Adjustment of mA and/or kV according to patient size (this includes techniques or standardized protocols for targeted exams where dose is matched to indication/reason for exam; i.e. extremities or head) *Use of iterative reconstruction technique DLP: 576 mGy-cm FINDINGS: LUNG BASES: Mild dependent atelectasis. Fat-containing right-sided Bochdalek hernia. LIVER, GALLBLADDER, AND BILIARY TREE: The liver demonstrates hypoattenuation consistent with steatosis. The liver is enlarged, measuring approximately 21 cm in craniocaudal dimension. No focal hepatic lesion or biliary ductal dilatation is identified. The gallbladder is unremarkable with no evidence of radiopaque gallstones, gallbladder wall thickening, or obvious pericholecystic inflammatory changes. PANCREAS: Moderately atrophic. SPLEEN: Unremarkable. ADRENAL GLANDS: Unremarkable. KIDNEYS AND URETERS: Bilateral nephrograms are symmetric. No hydronephrosis or obstructing calculus identified. BLADDER: Mildly distended and grossly unremarkable. GASTROINTESTINAL TRACT: Small to moderate-sized hiatal hernia. No evidence of bowel obstruction. Mild mural prominence of the ascending and transverse colon, for which mild colitis cannot be excluded. The appendix is unremarkable. There is a well-circumscribed fluid density collection in the lateral left abdomen measuring up to 2.5 cm adjacent to small bowel in the proximal descending colon on image 35/94, without appreciable peripheral enhancement and which could represent a small mesenteric cyst. No free air is seen. ABDOMINAL WALL: Small fat-containing umbilical hernia. LYMPH NODES: Normal. VASCULAR: Unremarkable. PELVIC VISCERA: Bilateral adnexal cysts are present measuring up to approximately 2.7 cm on the right and 4.4 cm on the left. Findings are likely to represent benign functional cysts. No followup imaging recommended. Trace pelvic free fluid noted. OSSEOUS STRUCTURES: Unremarkable. CT/CT abdomen pelvis w IV con IMPRESSION: 1. Mild mural prominence of the ascending and transverse colon, for which mild colitis cannot be excluded. 2. Well-circumscribed fluid density in the lateral left abdomen measuring up to 2.5 cm, which may represent a mesenteric cyst. 3. Bilateral adnexal cysts measuring up to 4.4 cm on the left. Trace pelvic free fluid, which may be physiologic. 4. Small to moderate-sized hiatal hernia. 5. Hepatomegaly with steatosis.
--- NOTE | 2023-06-04 23:11 | ED.CHESTPAIN ---
HPI - Chest Pain General Chief Complaint: Chest Pain Stated Complaint: L sided chest pain, normal 12 lead, vomiting Time Seen by Provider: 06/04/23 23:11 Source: patient Mode of arrival: EMS Limitations: no limitations History of Present Illness HPI narrative: Patient is a 43-year-old female who presents to the emergency department for evaluation of chest pain nausea vomiting. She reports onset of nausea and vomiting at approximately 10:00 o'clock this morning, followed by onset of left lower chest/left upper abdominal pain at approximately 12:00 o'clock this afternoon. Pain remains localized to this area. She reports she has been unable to keep down any food. She does admit to ?being alcoholic?, states she has been taking small sips of alcohol throughout the day but is vomiting soon afterwards. She reports episodes of similar symptoms in the past but has never sought evaluation for. She reports previously these episodes have lasted as long as 2 weeks. Today however the pain was more severe than she is experienced in the past. 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 She does report a history of hypertension as well as seizures, she has not taken any of her regular medications today as she ran out of them and has been having troubles with her insurance. Related Data Home Medications ?Medication ?Instructions ?Recorded ?Confirmed acamprosate 333 mg tablet,delayed 666 mg PO BID 07/26/22 07/26/22 release clonidine HCl 0.2 mg tablet 0.2 mg PO BID 07/26/22 07/26/22 omeprazole 20 mg capsule,delayed 20 mg PO DAILY@0630 07/26/22 07/26/22 release ondansetron 4 mg disintegrating 4 mg PO Q8H PRN nausea 07/26/22 07/26/22 tablet sucralfate 100 mg/mL oral 10 ml PO Q6H PRN Nausea 07/26/22 07/26/22 suspension (Carafate) Previous Rx's ?Medication ?Instructions ?Recorded acetaminophen 500 mg tablet 1,000 mg (2 x 500 mg) PO Q6H PRN 01/11/23 (Tylenol Extra Strength) fever or pain #20 tabs ibuprofen 400 mg tablet 400 mg PO TID PRN fever or pain 01/11/23 #30 tabs clonidine HCl 0.2 mg tablet 0.2 mg PO BID #60 tabs 06/05/23 magnesium oxide 400 mg PO BID #60 tabs 06/05/23 omeprazole 40 mg capsule,delayed 40 mg PO DAILY #90 caps 06/05/23 release sucralfate 1 gram tablet 1 g PO TID #90 tabs 06/05/23 thiamine HCl (vitamin B1) 100 mg 100 mg PO DAILY #90 tabs 06/05/23 tablet Allergies Allergy/AdvReac Type Severity Reaction Status Date / Time No Known Allergies Allergy Verified 06/04/23 23:22 Review of Systems Review of Systems: Yes all other systems are reviewed and are negative [facility] Past Medical History Attestation statement: The following information was validated with the patient. Source: old records reviewed Social History Social History Household Members: Family Housing: House Do you presently have visiting nurse or other home services: No Alcohol intake: current Alcohol intake frequency: 3 or more drinks per day Alcohol type: hard liquor Patient Tobacco Use Status: Current everyday Tobacco user Tobacco use type: Cigarette Smoked in Last 30 Days: No Substance Use Type: Heroin Advance Directives: No Advance Directives Information Provided: No service: No Current occupational status: unemployed Physical Exam Vital Signs: Vital Signs: Last Vital Signs Temp 98.4 F 06/05/23 05:12 Pulse 67 06/05/23 05:12 Resp 12 06/05/23 05:12 BP 122/79 06/05/23 05:12 Pulse Ox 97 06/05/23 05:12 O2 Del Method Room Air 06/05/23 05:12 BMI result Body Mass Index 27.5 Appearance: Alert.?Oriented to person, place and time. No acute distress.?Normal affect. Eyes: Pupils equal, round and reactive to light.? ENT: Pharynx normal.?? Neck: Normal inspection.? Neck supple.?? CVS: Heart sounds normal. Normal heart rate and rhythm.? Pulses normal.? Hypertensive? Respiratory: No respiratory distress.? Lung sounds clear to auscultation bilaterally?? Abdomen: Soft with epigastric and left upper quadrant tenderness upon palpation. No CVA tenderness.. Normoactive bowel sounds. No pulsatile mass.?? Skin: Skin warm and dry.? Normal skin color.? Extremities: No lower extremity edema.? No calf ttp? Neuro: Moves all extremities spontaneously. Sensation intact bilaterally. Ambulates with normal steady gait. Course Reevaluation(s) Reevaluation #1: CBC is without leukocytosis or anemia. No electrolyte derangement. No PIPPA. Hypomagnesemia; 1.1, patient to receive magnesium sulfate 2 g IV for replacement, QTC is not prolonged. LFTs mildly elevated including alk-phos, not seen previously, with elevated T bili 1.3, concerning for possible obstructive process, CT of the abdomen is pending at this time. High sensitive troponin is below detectable limits, EKG revealing normal sinus rhythm with ventricular rate of 76, QTC 452, no acute ischemic abnormalities, suspect less likely symptoms secondary to ACS at this time. Urinalysis with 1+ leukocyte esterase and urine WBCs, 4+ urine bacteria in addition to squamous epithelial cells, may be contaminant versus infectious pathology, she denies any dysuria, urinary frequency/urgency/hesitancy. Toxicology is positive for opiates, fentanyl, and cocaine, nondetectable alcohol level. Viral panel is negative. Patient signed out to ED attending Dr. Betancourt pending CT of the abdomen and pelvis and re-evaluation for disposition. Time: 01:40 Medications Administered Discontinued Medications Generic Name Dose Route Start Last Admin Trade Name Freq PRN Reason Stop Dose Admin Clonidine HCl 0.2 mg 06/04/23 23:40 06/05/23 00:12 Clonidine Hcl 0.2 Mg Tablet PO 06/04/23 23:41 0.2 mg ONCE ONE Administration Protocol Sodium Chloride 1,000 mls @ 999 mls/hr 06/04/23 23:45 06/05/23 03:04 Ns IV 06/05/23 00:45 Infused .Q1H1M JESÚS Infusion Magnesium Sulfate 2 gm in 50 mls @ 25 mls/hr 06/05/23 01:34 06/05/23 04:02 Magnesium Sulfate/H2o IV 06/05/23 03:33 Infused ONCE ONE Infusion Sodium Chloride 1,000 mls @ 999 mls/hr 06/05/23 03:22 06/05/23 04:52 Ns IV 06/05/23 04:22 Infused .Q1H1M ONE Infusion Iohexol 85 ml 06/05/23 01:37 06/05/23 01:37 Iohexol 350 Mg/Ml 100 Ml Infus..Btl IV 06/05/23 01:38 85 ml ONCE ONE Administration Lorazepam 2 mg 06/05/23 00:44 06/05/23 01:01 Lorazepam 2 Mg/Ml Vial IVPUSH 06/05/23 00:45 2 mg ONCE ONE Administration Pantoprazole Sodium 40 mg 06/05/23 01:46 06/05/23 04:52 Pantoprazole Sodium 40 Mg/10 Ml Vial IVPUSH 06/05/23 01:47 40 mg ONCE ONE Administration Sucralfate 1 gm 06/05/23 01:46 06/05/23 04:52 Sucralfate Oral Suspension 1 Gm/10 Ml Oral.Susp PO 06/05/23 01:47 1 gm ONCE ONE Administration Medical Decision Making Medical Decision Making MDM Narrative: Patient is a 43-year-old female who presents to the emergency department for evaluation chest/upper abdominal pain associated nausea and vomiting as per HPI. At the time my examination she appears uncomfortable. She is notably hypertensive, but is afebrile without tachycardia tachypnea or hypoxia. No respiratory distress. Abdominal exam is notable for left upper quadrant/epigastric tenderness upon palpation, there is however no rigidity or guarding. History and physical exam concerning for possible alcoholic pancreatitis, alcoholic gastritis, PUD, ACS, biliary etiology. Will obtain CBC to evaluate for leukocytosis/ anemia, CMP and lipase to evaluate for abnormal electrolytes /abnormal renal function/ abnormal hepatic/biliary function, EKG and troponin to evaluate for ischemia/ACS. CT of the abdomen and pelvis and Urinalysis. Plan to monitor CIWA. Received ondansetron intramuscularly prior to arrival by EMS with improvement in nausea. Patient receive normal saline IV fluid, lorazepam IV. Differential Diagnosis Differential Diagnoses: The differential diagnosis associated with the presentation includes (See narrative above) Admission/Observation Consideration of admission/observation: Escalation of care including admission/observation considered (See narrative above and course narrative for further detail) Lab Data MDM Lab Attestation statement: I reviewed the patient's lab results. (See course narrative for further detail) 06/05/23 00:59 06/05/23 00:59 Labs: Lab Results 06/05/23 06/05/23 Range/Units 00:17 00:59 WBC 7.1 (4.8-10.8) X10*3/uL RBC 4.21 D (4.20-5.50) X10*6/uL Hgb 15.5 D (12.0-16.0) g/dl Hct 45.0 D (37.0-47.0) % MCV 106.9 H (80.0-98.0) fL MCH 36.8 H (27.0-33.0) pg MCHC 34.4 (31.0-35.0) g/dl RDW 14.2 (11.0-16.0) % Plt Count 169 (160-400) X10*3/uL MPV 9.3 L (9.4-12.3) fL Immature Gran % (Auto) 0.3 (0.0-0.4) % Neut % (Auto) 74.2 H (45-73) % Lymph % (Auto) 19.7 L (20-40) % [place] % (Auto) 5.4 (2-11) % Eos % (Auto) 0.1 (0-4) % Baso % (Auto) 0.3 (0-2) % Lymph # (Auto) 1.4 (1.2-4.9) X10*3/uL [place] # (Auto) 0.4 (0.1-1.2) X10*3/uL Eos # (Auto) 0.0 (0.0-0.4) X10*3/uL Baso # (Auto) 0.0 (0.0-0.2) X10*3/uL Abs Immat Gran (auto) 0.02 (0.00-0.03) X10*3/uL Absolute Neuts (auto) 5.3 (2.0-8.3) x10*3/uL Absolute Nucleated RBC 0.000 (0.0-0.012) X10*3/uL Nucleated RBC % (auto) 0.0 (0.0-0.2) /100WBC PT 12.6 (11.1-13.3) SEC INR 1.0 (0.9-1.1) Sodium 139 (135-145) mmol/L Potassium 3.7 (3.3-5.1) mmol/L Chloride 102 (96-108) mmol/L Carbon Dioxide 27 (22-29) mmol/L Anion Gap 14 (12-20) BUN 5 L (9-16) mg/dL Creatinine 0.70 (0.5-1.4) mg/dL Estim Creat Clear Calc 102.2 Estimated GFR > 60 Random Glucose 91 (60-115) mg/dL Calcium 9.5 D (8.4-10.2) mg/dL Magnesium 1.1 L* (1.6-2.6) mg/dL Total Bilirubin 1.3 H (0.0-1.0) mg/dL AST 93 H (5-31) U/L ALT 36 H (0-31) U/L Alkaline Phosphatase 158 H (39-117) U/L Troponin I High Sens < 2.7 (<3.5-17.0) ng/L Total Protein 8.0 (6.5-8.0) g/dL Albumin 3.7 (3.5-5.0) g/dL Lipase 16 (8-78) U/L Hold Red Top See Note Urine Color Dark Yellow Urine Appearance Turbid Urine pH 6.0 (5.0-9.0) Ur Specific [place] 1.025 (1.005-1.025) Urine Protein 30 (1+) H (Neg-Trace) mg/dL Urine Glucose (UA) Negative (Negative) mg/dL Urine Ketones Trace (Negative) mg/dL Urine Blood Negative (Negative) Urine Nitrite Negative (Negative) Ur Leukocyte Esterase Small (1+) H (Negative) Urine RBC 0-2 (0-2) /HPF Urine WBC 21-50 H (0-5) /HPF Ur Squamous Epith Cells 11-20 (0-2) /HPF Urine Bacteria 4+ (None Seen) Hyaline Casts 3-5 (0-2) /LPF Urine Test NEGATIVE (NEGATIVE) Urine Opiates Screen POSITIVE H (Not Detect) Urine Fentanyl Screen POSITIVE H (Not Detect) Ur Barbiturates Screen Not Detected (Not Detect) Ur Phencyclidine Scrn Not Detected (Not Detect) Ur Amphetamines Screen Not Detected (Not Detect) U Benzodiazepines Scrn Not Detected (Not Detect) Urine Cocaine Screen POSITIVE H (Not Detect) U Marijuana (THC) Screen Not Detected (Not Detect) Ethyl Alcohol < 10 mg/dL Influenza Type A (PCR) NEGATIVE (Negative) Influenza Type B (PCR) NEGATIVE (Negative) RSV RNA Qual (PCR) NEGATIVE (Negative) SARS-CoV-2 RNA (RT-PCR) NEGATIVE (Negative) Independent Interpretation I performed an independent interpretation of an: EKG and Plain X-Ray (No pneumonia or infiltrate) Interpretation: Rate: 76 Rhythm:? Normal sinus rhythm [place]:? Normal Normal P waves.? Normal JINA.?? Normal QRS complex.?? ST T wave :??No ST elevation, no ST depression qTC: 452 prior studies:? July 2022 The study has been interpreted contemporaneously by me. Radiology Impression Discussion of test interpretation with radiology: I have reviewed the radiologist's reading. Radiologist Impression: XR/XR chest 2V IMPRESSION: No acute cardiopulmonary findings. Suggestion of small hiatal hernia. Independent Historian Clinical information obtained from an independent historian. History obtained from or confirmed by: EMS External Record Review External record reviewed: Inpatient record Discharge Plan Discharge Clinical Impression: Abdominal pain, Hypomagnesemia Patient Disposition: Home, Self-Care Instructions: Gastritis (ED), Abuse of Alcohol (ED), Hypomagnesemia (ED) Additional Instructions: Stop drinking alcohol Take medication as prescribed Follow detox Prescriptions: New clonidine HCl 0.2 mg tablet 0.2 mg PO BID Qty: 60 0RF omeprazole 40 mg capsule,delayed release(DR/EC) 40 mg PO DAILY Qty: 90 0RF sucralfate 1 gram tablet 1 g PO TID Qty: 90 0RF magnesium oxide 400 mg magnesium tablet 400 mg PO BID Qty: 60 0RF thiamine HCl (vitamin B1) 100 mg tablet 100 mg PO DAILY Qty: 90 0RF No Action sucralfate [Carafate] 100 mg/mL suspension 10 ml PO Q6H PRN (Reason: Nausea) clonidine HCl 0.2 mg tablet 0.2 mg PO BID omeprazole 20 mg capsule,delayed release(DR/EC) 20 mg PO DAILY@0630 ondansetron 4 mg tablet,disintegrating 4 mg PO Q8H PRN (Reason: nausea) acamprosate 333 mg tablet,delayed release (DR/EC) 666 mg PO BID acetaminophen [Tylenol Extra Strength] 500 mg tablet 1,000 mg PO Q6H PRN (Reason: fever or pain) Qty: 20 0RF ibuprofen 400 mg tablet 400 mg PO TID PRN (Reason: fever or pain) Qty: 30 0RF Interventions: ED Discharge Assessment Last Done: 06/05/23 05:12 Discharge Date/Time: 06/05/23 05:13 Print Language: Tamazight
[2023-06-04 23:14] VITALS: BP 179/117; BP 196/115; PULSE 68; PULSE 78; RESP 12; TEMP 36.9; O2SAT 95; O2SAT 96; BMI 27.5
[2023-06-05] MEDS: cloNIDine HCL 0.2 MG TABLET PO (00:12)
[2023-06-05 00:28] LABS: Appearance Urine Turbid; Color Urine Dark Yellow; Glucose Urine UA Negative (Negative); Leukocyte Esterase Urine Small (1+) (Negative); Nitrite Urine Negative (Negative); Specific Gravity - Urine 1.025 (1.005-1.025); UMIC TRIGGER UACC YES; Urine Blood Negative (Negative); Urine Ketones Trace mg/dL (Negative); Urine Protein 30 (1+) mg/dL (Neg-Trace)
[2023-06-05 00:37] LABS: Bacteria Urine 4+ (None Seen); RBC Urine 0-2 /HPF (0-2); UACC Culture Trigger YES; WBC Urine 21-50 /HPF (0-5)
[2023-06-05 00:39] LABS: Amphetamine Screen Urine Not Detected (Not Detect); Barbiturates, Urine Not Detected (Not Detect); Benzodiazepines Screen Urine Not Detected (Not Detect); Cannabinoid Screen Urine Not Detected (Not Detect); Cocaine Screen Urine POSITIVE (Not Detect); Fentanyl, urine POSITIVE (Not Detect); Opiate Screen Urine POSITIVE (Not Detect); Phencyclidine Screen Urine Not Detected (Not Detect)
[2023-06-05 00:58] LABS: UPreg QC Valid YES; Urine Pregnancy NEGATIVE (NEGATIVE)
[2023-06-05] MEDS: 0.9 % Sodium Chloride 1,000 ML 999 ML IV ×2 (01:00→03:24)
[2023-06-05] MEDS: LORazepam 2 MG/ML VIAL IVPUSH (01:01)
[2023-06-05 01:03] LABS: Influenza A PCR NEGATIVE (Negative); Influenza B PCR NEGATIVE (Negative); Resp Syncy Virus RNA Qual PCR NEGATIVE (Negative); SARS COV2 PCR INHOUSE NEGATIVE (Negative)
[2023-06-05 01:06] LABS: MANUAL DIFF FLAG NO
[2023-06-05 01:10] LABS: Basophils Percent Auto 0.3 % (0-2); Eosinophils Percent Auto 0.1 % (0-4); Hemoglobin 15.5 g/dl (12.0-16.0); Imm Gran Abs Auto 0.02 X10*3/uL (0.00-0.03); Imm Gran Pct Auto 0.3 % (0.0-0.4); Lymphocytes Absolute Auto 1.4 X10*3/uL (1.2-4.9); Lymphocytes Percent Auto 19.7 % (20-40); Mean Corpuscular HGB Conc 34.4 g/dl (31.0-35.0); Mean Corpuscular Hemoglobin 36.8 pg (27.0-33.0); Mean Corpuscular Volume 106.9 fL (80.0-98.0); Mean Platelet Volume 9.3 fL (9.4-12.3); Monocytes Absolute Auto 0.4 X10*3/uL (0.1-1.2); Monocytes Percent Auto 5.4 % (2-11); Neutrophils Absolute Auto 5.3 x10*3/uL (2.0-8.3); Neutrophils Percent Auto 74.2 % (45-73); Platelet Count 169 X10*3/uL (160-400); Red Blood Count 4.21 X10*6/uL (4.20-5.50); Red Cell Distribution Width 14.2 % (11.0-16.0); White Blood Count 7.1 X10*3/uL (4.8-10.8)
[2023-06-05 01:17] LABS: Prothrombin Time 12.6 SEC (11.1-13.3)
[2023-06-05 01:30] LABS: Troponin-I High Sensitivity < 2.7 ng/L (<3.5-17.0)
[2023-06-05 01:31] LABS: Alanine Aminotransferase 36 U/L (0-31); Albumin Level 3.7 g/dL (3.5-5.0); Alkaline Phosphatase 158 U/L (39-117); Anion Gap 14 (12-20); Aspartate Amino Transferase 93 U/L (5-31); Bilirubin Total 1.3 mg/dL (0.0-1.0); Blood Urea Nitrogen 5 mg/dL (9-16); Calcium 9.5 mg/dL (8.4-10.2); Carbon Dioxide 27 mmol/L (22-29); Chloride 102 mmol/L (96-108); Creatinine Clr Calc Pharmacy 102.2; Estimated Glomerular Filt Rate > 60; Ethanol < 10 mg/dL; Glucose Random 91 mg/dL (60-115); Lipase 16 U/L (8-78); Magnesium 1.1 mg/dL (1.6-2.6); Potassium 3.7 mmol/L (3.3-5.1); Sodium 139 mmol/L (135-145)
[2023-06-05] MEDS: iohexoL 350 MG/ML 100 ML INFUS..BTL 85 ML IV (01:37)
[2023-06-05] MEDS: Magnesium Sulfate/H2O 2 GM/50 ML PIGGYBACK IV (02:02)
[2023-06-05 02:05] VITALS: BP 129/76; PULSE 71; RESP 14; TEMP 36.6; O2SAT 94
--- NOTE | 2023-06-05 03:24 | PC.NURSE ---
NS 2L administered per verbal order from
[2023-06-05 04:35] VITALS: BP 122/79; PULSE 67; RESP 12; TEMP 36.9; O2SAT 97
[2023-06-05] MEDS: Sucralfate Oral Suspension 1 GM/10 ML ORAL.SUSP PO (04:52)
[2023-06-05] MEDS: Pantoprazole Sodium 40 MG/10 ML VIAL IVPUSH (04:52)
[2023-06-05 05:12] VITALS: BP 122/79; PULSE 67; RESP 12; TEMP 36.9; O2SAT 97
== END 2023-06-05 05:13 | disposition home or self-care (01) ==
PROVIDERS: Nurse Practitioner Family; Emergency Provider Internal Medicine
DX: R07.89 Other chest pain (principal); E83.42 Hypomagnesemia; R10.12 Left upper quadrant pain; R11.2 Nausea with vomiting, unspecified; Z11.52 Encounter for screening for COVID-19; Z20.822 Contact with and (suspected) exposure to COVID-19; Z79.899 Other long term (current) drug therapy
CPT/HCPCS: 0241U; 36415; 71046; 74177; 80053; 80307; 81001; 81025; 83690; 83735; 84484; 85025; 85610; 87086; 87088; 87186; 93005; 96361; 96374; 96375; 99285; C9113; J2060; J3475; Q9967

== ENCOUNTER → 2023-06-04 23:17 | Outpatient (BNV) | payer MEDICAID, SELFPAY | PROVIDERS: Emergency Provider Internal Medicine; Visit Provider Internal Medicine | DX: R07.9 Chest pain, unspecified (principal) | CPT/HCPCS: 93010 ==

== ENCOUNTER 2023-06-26 10:34 | Emergency (ER) | payer MEDICAID, SELFPAY ==
[2023-06-26 10:43] VITALS: BP 145/99; BP 151/101; PULSE 102; PULSE 97; RESP 18; TEMP 36.6; O2SAT 98; O2SAT 99
[2023-06-26 10:47] VITALS: BP 145/99; PULSE 97; RESP 18; TEMP 36.6; O2SAT 98
--- NOTE | 2023-06-26 10:57 | ECG_ITS ---
Test Reason : OVERDOSE Blood Pressure : / mmHG Vent. Rate : 075 BPM Atrial Rate : 075 BPM P-R Int : 136 ms QRS Dur : 094 ms QT Int : 408 ms P-R-T Axes : 055 059 054 degrees QTc Int : 455 ms Normal sinus rhythm Nonspecific ST abnormality Abnormal ECG When compared with ECG of 04-JUN-2023 23:17, No significant change was found Referred By: Agapito Peoples Electronically Signed By:Rolan Arthur
--- NOTE | 2023-06-26 12:15 | ED.GENADULT ---
HPI - General Adult General Chief complaint: Overdose Stated complaint: OD,NARCAN GIVEN BY BYSTANDERS PER EMS Time Seen by Provider: 06/26/23 10:54 History of Present Illness HPI narrative: The patient is a 43-year-old woman who was brought to the hospital by ambulance after she had been given naloxone by a bystander. Apparently she had been noticed to be unresponsive outside. She received naloxone and then became agitated. She was agitated when EMS arrived. EMS administered 2 mg of IM midazolam and transported the patient to the hospital. When the patient 1st got here she was quite sleepy but arousable and said that she had used heroin nasally. Related Data Home Medications ?Medication ?Instructions ?Recorded ?Confirmed acamprosate 333 mg tablet,delayed 666 mg PO BID 07/26/22 07/26/22 release clonidine HCl 0.2 mg tablet 0.2 mg PO BID 07/26/22 07/26/22 omeprazole 20 mg capsule,delayed 20 mg PO DAILY@0630 07/26/22 07/26/22 release ondansetron 4 mg disintegrating 4 mg PO Q8H PRN nausea 07/26/22 07/26/22 tablet sucralfate 100 mg/mL oral 10 ml PO Q6H PRN Nausea 07/26/22 07/26/22 suspension (Carafate) Previous Rx's ?Medication ?Instructions ?Recorded acetaminophen 500 mg tablet 1,000 mg (2 x 500 mg) PO Q6H PRN 01/11/23 (Tylenol Extra Strength) fever or pain #20 tabs ibuprofen 400 mg tablet 400 mg PO TID PRN fever or pain 01/11/23 #30 tabs clonidine HCl 0.2 mg tablet 0.2 mg PO BID #60 tabs 06/05/23 magnesium oxide 400 mg PO BID #60 tabs 06/05/23 omeprazole 40 mg capsule,delayed 40 mg PO DAILY #90 caps 06/05/23 release sucralfate 1 gram tablet 1 g PO TID #90 tabs 06/05/23 thiamine HCl (vitamin B1) 100 mg 100 mg PO DAILY #90 tabs 06/05/23 tablet cefuroxime axetil 250 mg tablet 250 mg PO BID 7 days #14 tabs 06/09/23 Allergies Allergy/AdvReac Type Severity Reaction Status Date / Time No Known Allergies Allergy Verified 06/26/23 10:49 Review of Systems Review of Systems: Yes all other systems are reviewed and are negative [facility] Social History Social History Household Members: Family Housing: House Do you presently have visiting nurse or other home services: No Alcohol intake: current Alcohol intake frequency: 3 or more drinks per day Alcohol type: hard liquor Patient Tobacco Use Status: Current everyday Tobacco user Tobacco use type: Cigarette Substance Use Type: Heroin Advance Directives: No Advance Directives Information Provided: No service: No Current occupational status: unemployed Physical Exam ED Vital Signs: Vital Signs - 24 hr 06/26/23 10:43 06/26/23 10:47 Temperature 97.8 F 97.8 F Pulse Rate 97 97 Respiratory Rate 18 18 Blood Pressure 145/99 H 145/99 H Pulse Oximetry 98 98 Oxygen Delivery Method Room Air Room Air BMI result Body Mass Index 9.8 Const Other: Patient was initially sleeping and had a blanket pulled over her head. She responded to verbal stimuli with a fairly intact mental status. She did not seem in acute distress. HENMT Other: No signs of trauma to the head or face. No raccoon eyes. No toro sign. Eyes Other: No sign of injury to the eyes. Pupils are round equal, extraocular movements are intact, conjunctivae clear Neck Other: No JVD. No cervical spine tenderness. Good range of motion of the neck. Chest Other: No crepitus or subcutaneous emphysema. Resp Effort & Inspection: normal respiratory effort Auscultation: clear to auscultation bilaterally Cardio Rate: regular rate Rhythm: regular rhythm Heart sounds: S1 normal heart sound present and S2 normal heart sound present GI Other: Abdomen is soft and nontender Skin Other: No bruising Neuro Other: The patient was initially sleepy but arousable with a fairly normal mental status. Cranial nerves are grossly intact. She moves her extremities normally. Later she was much more alert. Extrem Other: No sign of injuries to the extremities. She is moving the joints of her extremities well. Medical Decision Making Medical Decision Making MDM Narrative: The patient initially seemed to assent to a medical evaluation. She had an EKG that showed normal sinus rhythm at 75 beats per minute. The QTC interval was 455. No significant change from previous EKG. I had ordered lab work and expected the patient to stay in the emergency room for awhile. I however I was told fairly soon after EKG by the patient's nurse that the patient wanted to be discharged. I went to see her again. On my 2nd interview with the patient the patient told me that she had had a seizure that she attributed to not having taken her usual clonidine. She told me that she takes clonidine to prevent seizures. She said that she wanted to go home and rest and take her regular medications. She says that she has an apartment where she lives and she feels safe there. She has no suicidal ideation or other thoughts of self-harm at all. She seemed much more awake at that point. I think at this point any Narcan has worn off as has the effects of any midazolam. Since she was eager for discharge and since there was no indication for holding her against her will she was discharged to follow up with her regular doctor. Discharge Plan Discharge Clinical Impression: Syncope Patient Disposition: Home, Self-Care Additional Instructions: Please take all of your regular medications as they are prescribed. Please avoid any other substances that might affect your health in any way. Please follow up with your regular doctor soon. Return to the emergency room if worse. Prescriptions: No Action sucralfate [Carafate] 100 mg/mL suspension 10 ml PO Q6H PRN (Reason: Nausea) clonidine HCl 0.2 mg tablet 0.2 mg PO BID omeprazole 20 mg capsule,delayed release(DR/EC) 20 mg PO DAILY@0630 ondansetron 4 mg tablet,disintegrating 4 mg PO Q8H PRN (Reason: nausea) acamprosate 333 mg tablet,delayed release (DR/EC) 666 mg PO BID acetaminophen [Tylenol Extra Strength] 500 mg tablet 1,000 mg PO Q6H PRN (Reason: fever or pain) Qty: 20 0RF ibuprofen 400 mg tablet 400 mg PO TID PRN (Reason: fever or pain) Qty: 30 0RF clonidine HCl 0.2 mg tablet 0.2 mg PO BID Qty: 60 0RF omeprazole 40 mg capsule,delayed release(DR/EC) 40 mg PO DAILY Qty: 90 0RF sucralfate 1 gram tablet 1 g PO TID Qty: 90 0RF magnesium oxide 400 mg magnesium tablet 400 mg PO BID Qty: 60 0RF thiamine HCl (vitamin B1) 100 mg tablet 100 mg PO DAILY Qty: 90 0RF cefuroxime axetil 250 mg tablet 250 mg PO BID 7 Days Qty: 14 0RF Referrals: [facility] [Provider Group] Discharge Date/Time: 06/26/23 12:31 Print Language: Bulgarian
--- NOTE | 2023-06-26 12:26 | PC.NURSE ---
patient ambulated off unit with steady gait, refused vitals for d/c respirations equal and unlabored, patient is alert and oriented x3.
--- NOTE | 2023-06-27 12:50 | MHC.RECOVRN ---
Call placed to pt for post overdose follow up. Message left to return call.
== END 2023-06-26 12:31 | disposition home or self-care (01) ==
PROVIDERS: Emergency Provider Emergency Medicine
DX: R55 Syncope and collapse (principal); F17.210 Nicotine dependence, cigarettes, uncomplicated; R94.31 Abnormal electrocardiogram [ECG] [EKG]
CPT/HCPCS: 93005; 99283

== ENCOUNTER → 2023-06-26 10:57 | Outpatient (BNV) | payer MEDICAID, SELFPAY | PROVIDERS: Emergency Provider Emergency Medicine; Visit Provider Internal Medicine Cardiovascular Disease | DX: R94.31 Abnormal electrocardiogram [ECG] [EKG] (principal) | CPT/HCPCS: 93010 ==

== ENCOUNTER 2023-08-28 10:53 | Emergency (ER) | payer MEDICAID, SELFPAY ==
--- NOTE | ~2023-08-28 | CT_ITS ---
EXAMINATION: CT ABDOMEN AND PELVIS WITH CONTRAST CLINICAL INFORMATION: Left-sided pain. Question presence of pyelonephritis, gastritis? COMPARISON: 06/05/2023. TECHNIQUE: Multidetector volumetric images were obtained from the superior aspect of the liver through the pubic symphysis following administration 85 mL of Omnipaque 350 intravenous contrast. Sagittal and coronal reformatted images were obtained on the technologist's workstation. Oral contrast: No This CT examination was performed using dose optimization techniques as appropriate, variously including the following: *Automated exposure control *Adjustment of mA and/or kV according to patient size (this includes techniques or standardized protocols for targeted exams where dose is matched to indication/reason for exam; i.e. extremities or head) *Use of iterative reconstruction technique DLP: 522 mGy-cm FINDINGS: LUNG BASES: No pulmonary consolidation or pleural effusion. HEPATOBILIARY: Again noted is mild hepatomegaly and diffuse hepatic steatosis. Gallbladder has a normal appearance. No dilated bile ducts. PANCREAS: Chronic sayf-oy-hhmebqzx atrophy. No edema, pancreatic ductal dilatation or mass. SPLEEN: Normal. ADRENAL GLANDS: Normal. KIDNEYS AND URETERS: Kidneys have normal size and cortical thickness. No perinephric edema, urolithiasis or hydroureteronephrosis. BLADDER: Normal. No wall thickening or calculi. There is no perivesical edema. BOWEL AND PERITONEUM: Moderate hiatal hernia. Otherwise, stomach and bowel are unremarkable. The appendix is normal. No evidence of edematous thickening of bowel mckeon, mesenteric fat stranding or free fluid. A simple cyst anterior to the descending colon within the left abdomen is 2.3 cm AP dimension. It has a stable appearance compared to 06/05/2023. ABDOMINAL WALL: A small fat-containing umbilical hernia is unchanged. VASCULATURE: Unremarkable. LYMPH NODES: No pathologic sized lymph nodes in the abdomen or pelvis. No inguinal lymphadenopathy. PELVIC VISCERA: The uterus is unremarkable. A trace, physiologic amount free fluid is present in the pelvic cul-de-sac. The largest follicle within the right ovary is approximately 2 cm. A simple cyst/physiologic cyst of the left ovary is 2.7 cm (4.4 cm on 06/05/2023). No follow-up imaging recommended. MUSCULOSKELETAL: No acute or suspicious osseous abnormalities. There is a central to left paracentral disc protrusion at L5-S1 and this probably impinges upon the traversing left S1 nerve root. CT/CT abdomen pelvis w IV con IMPRESSION: * No acute imaging abnormalities along the urinary tracts. There are no findings to suggest pyelonephritis or cystitis. No nephrolithiasis or hydronephrosis. * Moderate hiatal hernia. * Again noted is hepatomegaly and diffuse hepatic steatosis. * A simple cyst of the left ovary has decreased in size compared to 06/05/2023.
[2023-08-28 11:03] VITALS: BP 209/118; PULSE 96; RESP 18; TEMP 37; O2SAT 100; BMI 26.9
--- NOTE | 2023-08-28 11:03 | ED_ITS ---
HPI - General Adult General Chief complaint: Abdominal Pain Stated complaint: ABD PAIN,VOMITING, HEROIN USE THIS AM PER EMS Time Seen by Provider: 08/28/23 12:03 History of Present Illness ED Provider: Shelton TAYLOR narrative: The patient is a 43-year-old female who says that she is an alcoholic and heroin user. She injects her heroin intravenously. The patient says that she come to the emergency room today primarily for evaluation of left upper quadrant abdominal pain that started early this morning. She says she has had episodes of pain like this before. She says that she normally tries to ride out the pain? on her own but today the pain seemed more severe than previously and she came to the emergency room. She says she has been nauseated as well and has not been able to tolerate any alcohol this morning. The patient says that she has been having intermittent sweats for a long time and wonders whether she might be going through menopause. She does not think she has had any fevers. She does not think she has any infection related to her IV injection sites. Related Data Home Medications ?Medication ?Instructions ?Recorded ?Confirmed acamprosate 333 mg tablet,delayed 666 mg PO BID 07/26/22 07/26/22 release clonidine HCl 0.2 mg tablet 0.2 mg PO BID 07/26/22 07/26/22 omeprazole 20 mg capsule,delayed 20 mg PO DAILY@0630 07/26/22 07/26/22 release ondansetron 4 mg disintegrating 4 mg PO Q8H PRN nausea 07/26/22 07/26/22 tablet sucralfate 100 mg/mL oral 10 ml PO Q6H PRN Nausea 07/26/22 07/26/22 suspension (Carafate) Previous Rx's ?Medication ?Instructions ?Recorded acetaminophen 500 mg tablet 1,000 mg (2 x 500 mg) PO Q6H PRN 01/11/23 (Tylenol Extra Strength) fever or pain #20 tabs ibuprofen 400 mg tablet 400 mg PO TID PRN fever or pain 01/11/23 #30 tabs clonidine HCl 0.2 mg tablet 0.2 mg PO BID #60 tabs 06/05/23 magnesium oxide 400 mg PO BID #60 tabs 06/05/23 omeprazole 40 mg capsule,delayed 40 mg PO DAILY #90 caps 06/05/23 release sucralfate 1 gram tablet 1 g PO TID #90 tabs 06/05/23 thiamine HCl (vitamin B1) 100 mg 100 mg PO DAILY #90 tabs 06/05/23 tablet cefuroxime axetil 250 mg tablet 250 mg PO BID 7 days #14 tabs 06/09/23 cefuroxime axetil 250 mg tablet 250 mg PO BID #10 tabs 08/28/23 omeprazole 40 mg capsule,delayed 40 mg PO DAILY #30 caps 08/28/23 release Allergies Allergy/AdvReac Type Severity Reaction Status Date / Time No Known Allergies Allergy Verified 08/28/23 11:05 Review of Systems 2 Review of Systems: Yes all other systems are reviewed and are negative [facility] Social History Social History Household Members: Family Housing: House Do you presently have visiting nurse or other home services: No Alcohol intake: current Alcohol intake frequency: 3 or more drinks per day Alcohol type: hard liquor Patient Tobacco Use Status: Current everyday Tobacco user Tobacco use type: Cigarette Smoked in Last 30 Days: Yes Use of substances other than those prescribed or required for medical reasons: Yes Substance Use Type: Heroin and IV Drugs Advance Directives: No Advance Directives Information Provided: Yes Do you have a plan to hurt others: No Plan service: No Current occupational status: unemployed Physical Exam ED Vital Signs: Vital Signs - 24 hr 08/28/23 11:03 08/28/23 16:15 08/28/23 18:18 Temperature 98.6 F 97.9 F 97.7 F Pulse Rate 96 85 94 Respiratory Rate 18 12 16 Blood Pressure 209/118 H 137/74 140/88 H Pulse Oximetry 100 93 95 Oxygen Delivery Method Room Air Room Air Room Air 08/28/23 18:19 Temperature 97.7 F Pulse Rate 94 Respiratory Rate 16 Blood Pressure 140/88 H Pulse Oximetry 95 Oxygen Delivery Method Room Air BMI result Body Mass Index 26.9 Const Other: The patient is a chronically ill-appearing 43-year-old. She looks considerably older than her age. She is very unkempt and has multiple discolored track fuentes on her arms. She is awake and alert with a normal mental status. He does not appear obviously acutely ill. HENMT Other: Face is symmetrical. Mucous membranes moist. Eyes Other: Pupils are round equal, conjunctivae clear, extraocular movements intact Neck Other: Moving her neck easily, no neck masses Resp Effort & Inspection: normal respiratory effort Auscultation: clear to auscultation bilaterally Cardio Other: I do not appreciate a cardiac murmur Rate: regular rate Rhythm: regular rhythm Heart sounds: S1 normal heart sound present and S2 normal heart sound present GI Other: The patient is tender in the left upper quadrant and somewhat in the epigastrium. The other quadrants are nontender. Digital rectal exam revealed light brown heme-negative stool. Back/Spine/Pelvis Other: Some possible left-sided CVA percussion tenderness. Skin Other: The patient has multiple track fuentes on her extremities. No definite localized erythema or other signs of cellulitis. Neuro Other: The patient is awake and alert with a normal mental status. Cranial nerves are grossly intact. She moves her extremities symmetrically. She seems grossly neurologically intact. Extrem Other: The patient has multiple track fuentes on her extremities. Seems to have some slight peripheral edema in the legs. Course Course Course Narrative: This is an RME: Additional HPI, ROS, PE not included below will be deferred to primary provider. RME assessment and note performed by: Nesha Osman PA-C This is a [id number], with a hx of etoh abuse, substance abuse, who presents to the ER with complaint of epigastric pain, nausea, and vomiting since 12:00AM this morning. +vomiting in triage > given zofran 4mg ODT. Abd is soft with TTP in the epigastrium. She drinks approximately 1 pint per day, last drink was 2 shots this morning. Hx of etoh seizures with withdrawal. No CP/SOB. Plan: Labs, EKG Medications Administered Discontinued Medications Generic Name Dose Route Start Last Admin Trade Name Freq PRN Reason Stop Dose Admin Droperidol 1.25 mg 08/28/23 13:36 08/28/23 14:30 Droperidol 5 Mg/2 Ml Vial IVPUSH 08/28/23 13:37 1.25 mg ONCE ONE Administration Famotidine 20 mg 08/28/23 13:37 08/28/23 14:32 Famotidine/Pf 20 Mg/2 Ml Vial IVPUSH 08/28/23 13:38 20 mg ONCE ONE Administration Sodium Chloride 1,000 mls @ 999 mls/hr 08/28/23 12:15 08/28/23 14:24 Ns IV 08/28/23 13:15 Infused .Q1H1M JESÚS Infusion Magnesium Sulfate 2 gm in 50 mls @ 150 mls/hr 08/28/23 13:51 08/28/23 15:58 Magnesium Sulfate/H2o IV 08/28/23 14:10 Infused ONCE ONE Infusion Sodium Chloride 1,000 mls @ 999 mls/hr 08/28/23 17:00 08/28/23 18:18 Ns IV 08/28/23 18:00 Infused .Q1H1M JESÚS Infusion Iohexol 100 ml 08/28/23 15:15 08/28/23 15:15 Iohexol 350 Mg/Ml 100 Ml Infus..Btl IV 08/28/23 15:16 85 ml ONCE ONE Administration Lorazepam 2 mg 08/28/23 13:24 08/28/23 13:32 Lorazepam 2 Mg/Ml Vial IVPUSH 08/28/23 13:25 2 mg ONCE ONE Administration Ondansetron HCl 4 mg 08/28/23 11:02 08/28/23 11:10 Ondansetron Odt 4 Mg Tab.Rapdis TRANSLINGU 08/28/23 11:03 4 mg ONCE ONE Administration Sucralfate 1 gm 08/28/23 16:47 08/28/23 17:05 Sucralfate Oral Suspension 1 Gm/10 Ml Oral.Susp PO 08/28/23 16:48 1 gm ONCE ONE Administration Medical Decision Making Medical Decision Making [facility] Narrative: The patient is a 43-year-old woman who was an alcoholic and also an IV heroin user comes for evaluation of left upper quadrant abdominal pain. My major concern was that she might have pancreatitis but her lipase was normal. Another possible diagnosis was that she might have alcohol-related gastritis. Patient had left upper quadrant abdominal tenderness and also left-sided CVA percussion tenderness. Her urinalysis was potentially consistent with a UTI. I had some concerns also for left-sided pyelonephritis. CT scan of her abdomen and pelvis was done. This did not show any obvious acute problem. There is previously noted hepatomegaly and diffuse hepatic steatosis. There is a moderate hiatal hernia. 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 She was offered the opportunity to speak to somebody from the care team or the recovery team. She did not wish to do so. She will will be prescribed omeprazole. For what may be a urinary tract infection she was also started on cefuroxime. She should return if worse. Lab Data 08/28/23 13:07 08/28/23 13:07 Labs: Lab Results 08/28/23 08/28/23 08/28/23 Range/Units 12:00 12:38 13:07 WBC 6.4 (4.8-10.8) X10*3/uL RBC 3.10 L D (4.20-5.50) X10*6/uL Hgb 12.8 (12.0-16.0) g/dl Hct 35.9 L D (37.0-47.0) % MCV 115.8 H (80.0-98.0) fL MCH 41.3 H (27.0-33.0) pg MCHC 35.7 H (31.0-35.0) g/dl RDW 14.2 (11.0-16.0) % Plt Count 178 (160-400) X10*3/uL MPV 9.1 L (9.4-12.3) fL Immature Gran % (Auto) 1.1 H (0.0-0.4) % Neut % (Auto) 69.7 (45-73) % Lymph % (Auto) 21.7 (20-40) % [place] % (Auto) 7.0 (2-11) % Eos % (Auto) 0.2 (0-4) % Baso % (Auto) 0.3 (0-2) % Lymph # (Auto) 1.4 (1.2-4.9) X10*3/uL [place] # (Auto) 0.5 (0.1-1.2) X10*3/uL Eos # (Auto) 0.0 (0.0-0.4) X10*3/uL Baso # (Auto) 0.0 (0.0-0.2) X10*3/uL Abs Immat Gran (auto) 0.07 H (0.00-0.03) X10*3/uL Absolute Neuts (auto) 4.5 (2.0-8.3) x10*3/uL Absolute Nucleated RBC 0.000 (0.0-0.012) X10*3/uL Nucleated RBC % (auto) 0.0 (0.0-0.2) /100WBC Sodium 138 (135-145) mmol/L Potassium 3.6 (3.3-5.1) mmol/L Chloride 101 (96-108) mmol/L Carbon Dioxide 27 (22-29) mmol/L Anion Gap 14 (12-20) BUN 4 L (9-16) mg/dL Creatinine 0.70 (0.5-1.4) mg/dL Estim Creat Clear Calc 104.9 Estimated GFR > 60 Random Glucose 121 H (60-115) mg/dL Calcium 9.4 (8.4-10.2) mg/dL Magnesium 1.2 L* (1.6-2.6) mg/dL Total Bilirubin 1.0 (0.0-1.0) mg/dL Direct Bilirubin 0.3 (0.0-0.5) mg/dL AST 70 H (5-31) U/L ALT 22 (0-31) U/L Alkaline Phosphatase 139 H (39-117) U/L Troponin I High Sens < 2.7 (<3.5-17.0) ng/L C-Reactive Protein 0.33 (< or = 0.50) mg/dL Total Protein 8.2 H (6.5-8.0) g/dL Albumin 3.6 (3.5-5.0) g/dL Lipase 13 (8-78) U/L Beta HCG, Quant < 2 mIU/mL Urine Color Dark Yellow Urine Appearance Turbid Urine pH 6.0 (5.0-9.0) Ur Specific [place] 1.020 (1.005-1.025) Urine Protein 30 (1+) H (Neg-Trace) mg/dL Urine Glucose (UA) Negative (Negative) mg/dL Urine Ketones Trace (Negative) mg/dL Urine Blood Negative (Negative) Urine Nitrite Negative (Negative) Ur Leukocyte Esterase Moderate (2+) H (Negative) Urine RBC 0-2 (0-2) /HPF Urine WBC >50 H (0-5) /HPF Ur Squamous Epith Cells 6-10 (0-2) /HPF Urine Bacteria 4+ (None Seen) Hyaline Casts 0-2 (0-2) /LPF Urine Opiates Screen POSITIVE H (Not Detect) Ur Buprenorphine Scrn Not Detected (Not Detect) ng/mL Ur Oxycodone Screen Not Detected (Not Detect) ng/mL Urine Methadone Screen Not Detected (Not Detect) ng/mL Urine Fentanyl Screen POSITIVE H (Not Detect) Ur Barbiturates Screen Not Detected (Not Detect) Ur Phencyclidine Scrn Not Detected (Not Detect) Ur Amphetamines Screen Not Detected (Not Detect) U Benzodiazepines Scrn Not Detected (Not Detect) Urine Cocaine Screen POSITIVE H (Not Detect) U Marijuana (THC) Screen Not Detected (Not Detect) Ethyl Alcohol < 10 mg/dL Influenza Type A (PCR) NEGATIVE (Negative) Influenza Type B (PCR) NEGATIVE (Negative) RSV RNA Qual (PCR) NEGATIVE (Negative) SARS-CoV-2 RNA (RT-PCR) NEGATIVE (Negative) Independent Interpretation I performed an independent interpretation of an: EKG Interpretation: EKG at 11:40 shows normal sinus rhythm at 72 beats per minute. There are nonspecific ST changes but these are stable and similar to previous EKGs. No acute changes on today's EKG. Discharge Plan Discharge Clinical Impression: Left upper quadrant abdominal pain, Urinary tract infection Patient Disposition: Home, Self-Care Instructions: Gastritis (ED), Acute Urinary Retention in Women (ED) Additional Instructions: Your testing today is largely reassuring. There is no acutely dangerous process at work. I suspect the pain you have been having in your abdomen is probably a stomach acid problem. You may have a condition known as gastritis. Omeprazole is a medication which helps reduce stomach acid. Please take the omeprazole daily. Alcohol use can make gastritis worse. Please do your best to reduce or eliminate alcohol use. Your urine test suggest that you might have a urinary tract infection. You have been prescribed a course of an antibiotic for a possible urinary tract infection. Please take the cefuroxime 2 times a day as prescribed. Please follow up soon with your regular doctor. Return to the emergency room if worse Prescriptions: New omeprazole 40 mg capsule,delayed release(DR/EC) 40 mg PO DAILY Qty: 30 0RF cefuroxime axetil 250 mg tablet 250 mg PO BID Qty: 10 0RF No Action sucralfate [Carafate] 100 mg/mL suspension 10 ml PO Q6H PRN (Reason: Nausea) clonidine HCl 0.2 mg tablet 0.2 mg PO BID omeprazole 20 mg capsule,delayed release(DR/EC) 20 mg PO DAILY@0630 ondansetron 4 mg tablet,disintegrating 4 mg PO Q8H PRN (Reason: nausea) acamprosate 333 mg tablet,delayed release (DR/EC) 666 mg PO BID acetaminophen [Tylenol Extra Strength] 500 mg tablet 1,000 mg PO Q6H PRN (Reason: fever or pain) Qty: 20 0RF ibuprofen 400 mg tablet 400 mg PO TID PRN (Reason: fever or pain) Qty: 30 0RF clonidine HCl 0.2 mg tablet 0.2 mg PO BID Qty: 60 0RF omeprazole 40 mg capsule,delayed release(DR/EC) 40 mg PO DAILY Qty: 90 0RF sucralfate 1 gram tablet 1 g PO TID Qty: 90 0RF magnesium oxide 400 mg magnesium tablet 400 mg PO BID Qty: 60 0RF thiamine HCl (vitamin B1) 100 mg tablet 100 mg PO DAILY Qty: 90 0RF cefuroxime axetil 250 mg tablet 250 mg PO BID 7 Days Qty: 14 0RF Referrals: Sana Pinon MD [Primary Care Provider] - (Alcoholism, gastritis, UTI) Interventions: ED Discharge Assessment Last Done: 08/28/23 18:19 Discharge Date/Time: 08/28/23 18:27 Print Language: Estonian
--- NOTE | 2023-08-28 11:08 | ECG_ITS ---
Test Reason : EPIGASTRIC PAIN Blood Pressure : / mmHG Vent. Rate : 072 BPM Atrial Rate : 072 BPM P-R Int : 124 ms QRS Dur : 088 ms QT Int : 416 ms P-R-T Axes : 050 040 038 degrees QTc Int : 455 ms Normal sinus rhythm Nonspecific ST abnormality Abnormal ECG When compared with ECG of 26-JUN-2023 11:02, No significant change was found Referred By: Nesha Osman Electronically Signed By:Rolan Arthur
[2023-08-28] MEDS: Ondansetron ODT 4 MG TAB.RAPDIS TRANSLINGU (11:10)
[2023-08-28 12:06] LABS: Appearance Urine Turbid; Color Urine Dark Yellow; Glucose Urine UA Negative (Negative); Leukocyte Esterase Urine Moderate (2+) (Negative); Nitrite Urine Negative (Negative); UMIC TRIGGER UACC YES; Urine Blood Negative (Negative); Urine Ketones Trace mg/dL (Negative); Urine Protein 30 (1+) mg/dL (Neg-Trace)
[2023-08-28 12:16] LABS: Amphetamine Screen Urine Not Detected (Not Detect); Barbiturates, Urine Not Detected (Not Detect); Benzodiazepines Screen Urine Not Detected (Not Detect); Buprenorphine Scr Not Detected (Not Detect); Cannabinoid Screen Urine Not Detected (Not Detect); Cocaine Screen Urine POSITIVE (Not Detect); Fentanyl, urine POSITIVE (Not Detect); Methadone Screen, Urine Not Detected (Not Detect); Opiate Screen Urine POSITIVE (Not Detect); Oxycodone Screen Urine Not Detected (Not Detect); Phencyclidine Screen Urine Not Detected (Not Detect)
[2023-08-28 12:18] LABS: Bacteria Urine 4+ (None Seen); Hyaline Casts Urine 0-2 /LPF (0-2); RBC Urine 0-2 /HPF (0-2); UACC Culture Trigger YES; WBC Urine >50 /HPF (0-5)
[2023-08-28] MEDS: 0.9 % Sodium Chloride 1,000 ML 999 ML IV ×2 (13:05→17:05)
--- NOTE | 2023-08-28 13:09 | PC.NURSE ---
Pt presents to ED from home, reports generalized ABD pain since last night along with N/V. Pt reports she drinks alcohol daily, was unable to drink today due to ABD pain and N/V. Pain is 10/10 all over. Does have hx of alcohol withdrawal seizures. Alert and oriented, breathing slightly elevated, pt appears uncomfortable. IV delayed due to multiple attempts, pt very hard stick. US guided IV obtained by another trained RN. Denies fevers, cough, CP, SOB, SI or HI
[2023-08-28 13:13] LABS: MANUAL DIFF FLAG NO
[2023-08-28 13:27] LABS: C Reactive Protein 0.33 mg/dL (< or = 0.50)
[2023-08-28 13:28] LABS: Ethanol < 10 mg/dL
[2023-08-28 13:31] LABS: Basophils Percent Auto 0.3 % (0-2); Eosinophils Percent Auto 0.2 % (0-4); Hematocrit 35.9 % (37.0-47.0); Hemoglobin 12.8 g/dl (12.0-16.0); Imm Gran Abs Auto 0.07 X10*3/uL (0.00-0.03); Imm Gran Pct Auto 1.1 % (0.0-0.4); Lymphocytes Absolute Auto 1.4 X10*3/uL (1.2-4.9); Lymphocytes Percent Auto 21.7 % (20-40); Mean Corpuscular HGB Conc 35.7 g/dl (31.0-35.0); Mean Corpuscular Hemoglobin 41.3 pg (27.0-33.0); Mean Platelet Volume 9.1 fL (9.4-12.3); Monocytes Absolute Auto 0.5 X10*3/uL (0.1-1.2); Neutrophils Absolute Auto 4.5 x10*3/uL (2.0-8.3); Neutrophils Percent Auto 69.7 % (45-73); Platelet Count 178 X10*3/uL (160-400); Red Cell Distribution Width 14.2 % (11.0-16.0); White Blood Count 6.4 X10*3/uL (4.8-10.8)
[2023-08-28 13:32] LABS: Mean Corpuscular Volume 115.8 fL (80.0-98.0)
[2023-08-28] MEDS: LORazepam 2 MG/ML VIAL IVPUSH (13:32)
[2023-08-28 13:43] LABS: Troponin-I High Sensitivity < 2.7 ng/L (<3.5-17.0)
[2023-08-28 13:47] LABS: Alanine Aminotransferase 22 U/L (0-31); Albumin Level 3.6 g/dL (3.5-5.0); Alkaline Phosphatase 139 U/L (39-117); Anion Gap 14 (12-20); Aspartate Amino Transferase 70 U/L (5-31); Bilirubin Direct 0.3 mg/dL (0.0-0.5); Blood Urea Nitrogen 4 mg/dL (9-16); Calcium 9.4 mg/dL (8.4-10.2); Carbon Dioxide 27 mmol/L (22-29); Chloride 101 mmol/L (96-108); Creatinine Clr Calc Pharmacy 104.9; Estimated Glomerular Filt Rate > 60; Glucose Random 121 mg/dL (60-115); HCG Quantitative < 2 mIU/mL; Lipase 13 U/L (8-78); Magnesium 1.2 mg/dL (1.6-2.6); Potassium 3.6 mmol/L (3.3-5.1); Sodium 138 mmol/L (135-145); Total Protein 8.2 g/dL (6.5-8.0)
[2023-08-28] MEDS: droPERidol 5 MG/2 ML VIAL 1.25 MG IVPUSH (14:30)
[2023-08-28] MEDS: Famotidine/PF 20 MG/2 ML VIAL IVPUSH (14:32)
[2023-08-28] MEDS: Magnesium Sulfate/H2O 2 GM/50 ML PIGGYBACK IV (14:33)
[2023-08-28 15:12] LABS: Influenza A PCR NEGATIVE (Negative); Influenza B PCR NEGATIVE (Negative); Resp Syncy Virus RNA Qual PCR NEGATIVE (Negative); SARS COV2 PCR INHOUSE NEGATIVE (Negative)
[2023-08-28] MEDS: iohexoL 350 MG/ML 100 ML INFUS..BTL IV (15:15)
[2023-08-28 16:15] VITALS: BP 137/74; PULSE 85; RESP 12; TEMP 36.6; O2SAT 93
[2023-08-28] MEDS: Sucralfate Oral Suspension 1 GM/10 ML ORAL.SUSP PO (17:05)
[2023-08-28 18:18] VITALS: BP 140/88; PULSE 94; RESP 16; TEMP 36.5; O2SAT 95
[2023-08-28 18:19] VITALS: BP 140/88; PULSE 94; RESP 16; TEMP 36.5; O2SAT 95
== END 2023-08-28 18:27 | disposition home or self-care (01) ==
PROVIDERS: Physician Assistant Medical; Emergency Provider Emergency Medicine; PCP Family Medicine
DX: R10.9 Unspecified abdominal pain (principal); F11.10 Opioid abuse, uncomplicated; R11.2 Nausea with vomiting, unspecified; F10.20 Alcohol dependence, uncomplicated; R10.2 Pelvic and perineal pain; Y90.0 Blood alcohol level of less than 20 mg/100 ml; Z03.818 Encounter for observation for suspected exposure to other biological agents ruled out; Z79.899 Other long term (current) drug therapy
CPT/HCPCS: 0241U; 36415; 74177; 80048; 80076; 80307; 81001; 83690; 83735; 84484; 84702; 85025; 86140; 87086; 87088; 87186; 93005; 96361; 96365; 96366; 96375; 99285; J1790; J2060; J3475; Q9967

== ENCOUNTER → 2023-08-28 11:08 | Outpatient (BNV) | payer MEDICAID, SELFPAY | PROVIDERS: Emergency Provider Emergency Medicine; Visit Provider Internal Medicine Cardiovascular Disease | DX: R94.31 Abnormal electrocardiogram [ECG] [EKG] (principal) | CPT/HCPCS: 93010 ==

== ENCOUNTER 2024-05-25 17:56 | Outpatient (REF) | payer MEDICAID, SELFPAY ==
--- OUTSIDE RECORDS SUMMARY | 2024-05-25 18:57 | XMS_ITS | Encounter Summary ---
Author Organization [employer] Address [address] [facility] [address] [place] [address] Care Team Providers Care Cork Slabs Sawyer Name Role Phone Amara Lola AIRPLANE AND ENGINE INSPECTOR Primary Care Provider [phone] Reason for Visit * Reason Comments Med Refill Encounter Details Date Type Department Care Team ([facility] Contact Info) Description 12/05/2023 Refill [facility] [address] [place] [address] Sana Pinon MD [address] [place] [address] Social History Tobacco Use Types Packs/Day Years Used Date Smoking Tobacco: Every Day Cigarettes Alcohol Use Standard Drinks/Week Comments Yes 16 (1 standard drink = 0.6 oz pu re alcohol) everyday for the last 10 yrs Depression Answer Date Recorded Patient Health Questionnaire-9 Score 16 06/01/2022 Housing Stability Answer Date Recorded What is your housing situation today? I have roberta landry 11/25/[address] you li ve. Do you have problems with any of the following? Pests such as bugs, ants, or mice 11/25/2022 Food Insecurity Answer Date Recorded Within the past 12 months, y ou worried that your food would run out before you got money to buy more: Sometimes True 2022 Within the past 12 months,th e food you bought just didn't last and you didn't have enough money to get more: Sometimes True 12/03/2022 Transportation Answer Date Recorded In the past 12 months, has l ack of transportation kept you from medical appts, meetings, work or from getting things needed for daily living? Yes, it has kept me from medical appointments or getting medications. 11/25/2022 Utilities Answer Date Recorded In the past 12 months, has t he electric, gas, oil or water company threatened to shut off services in your home? No 12/03/2022 Depression Answer Date Recorded Patient Health Questionnaire-2 Score 4 06/01/2022 Comments Unknown Sex and Gender Information Value Date Recorded Sex Assigned at Female 12/18/2021 10:17 AM EDT Legal Sex Female 10:17 AM EDT Gender Identity Female 12/18/2021 10:17 AM EDT Sexual Orientation Straight 12/18/2021 10 :17 AM EDT documented as of this encounter Plan of Treatment Upcoming Encounters Date Type Department Care Team (Late st Contact Info) Description 06/10/2024 11:00 AM EDT Clinical Support [facility] [address] [place] [address] 07/08/2024 9:00 AM EDT Office Visit [facility] [address] [place] [address] Lola Maloney FNP [address] [place] [address] documented as of this encounter Visit Diagnoses Not on filedocumented in this encounter Additional Health Concerns Assessment Noted Time PHQ-9 Depression Total Score: 16 023 2:55 PM EDT documented as of this encounter Care Teams Cork Slabs Sawyer Relationship Specialty Start Date End Date Lola Maloney FNP [address] [place] [phone] PCP - General Family Medicine 05/25/24 documented as of this encounter
--- OUTSIDE RECORDS SUMMARY | 2024-05-25 18:57 | XMS_ITS | Encounter Summary ---
Author Organization [employer] Address [address] [facility] [address] [place] [address] Care Team Providers Care Plastic Roller Name Role Phone Trona [facility] Primary Care Provider [phone] Reason for Visit * Reason Comments Care Coordination CHW outreach for SDO H housing search-referral completed Encounter Details Date Type Department Care Team (Latest Contact Info) Description 05/25/2024 Patient Outreach [facility] [address] [place] [address] [facility] [address] [place] [address] Care Coordination (CHW outreach for SDOH housing search-referral completed ) Social History Tobacco Use Types Packs/Day Years Used Date Smoking Tobacco: Every Day Cigarettes Alcohol Use Standard Drinks/Week Comments Yes 16 (1 standard drink = 0.6 oz pu re alcohol) everyday for the last 10 yrs Depression Answer Date Recorded Patient Health Questionnaire-9 Score 24 05/25/2024 Patient Health Questionnaire-9 Score 24 05/25/2024 Last PHQ-9: Questionnaire Data Not on file 0 05/25/2024 Housing Stability Answer Date Recorded What is your housing situation today? I do not have housing (Staying with others, in a hotel, in a usp, living outside on the street, on a beach, in a car, or in a park 05/25/[address] you li ve. Do you have problems with any of the following? None of the above 05/25/2024 Food Insecurity Answer Date Recorded Within the past 12 months, y ou worried that your food would run out before you got money to buy more: Often true 05/25/2024 Within the past 12 months,th e food you bought just didn't last and you didn't have enough money to get more: Often true 08/2024 Transportation Answer Date Recorded In the past 12 months, has l ack of transportation kept you from medical appts, meetings, work or from getting things needed for daily living? I am not sure 05/25/2024 Utilities Answer Date Recorded In the past 12 months, has t he electric, gas, oil or water company threatened to shut off services in your home? I am not sure 05/25/2024 Depression Answer Date Recorded Patient Health Questionnaire-2 Score 6 05/25/2024 Internet Access Answer Date Recorded Internet Access Q1 I am not sure 05/25/2024 Internet Access Q2 Not on file 05/25/2024 Comments Unknown Sex and Gender Information Value Date Recorded Sex Assigned at Female 12/18/2021 10:17 AM EDT Legal Sex Female 10:17 AM EDT Gender Identity Female 12/18/2021 10:17 AM EDT Sexual Orientation Straight 12/18/2021 10 :17 AM EDT documented as of this encounter Progress Notes * Trent Alamo - 05/25/2024 1:58 PM EDT CHW Trent Alamo, placed outbound call to patient for assistance with SDOH as a referral was received by the provider. Patient's name and were confirmed. Patient screened positive for the following SDOH housing insecurities. Patient states is staying with her friend but is searching for her own apartment. CHW referral patient to the list of application mail out to her address on file. Patient verbalizes understanding, and able to agree with plan to follow up herself. Patient educated on extended clinic hours on Mondays through Wednesdays, and Walk-In Urgent Care Located in [facility]. Patient provided with after-hours line for [facility], , which offer night time triage service and option to transfer to production associate provider if needed. documented in this encounter Plan of Treatment Upcoming Encounters Date Type Department Care Team (Late st Contact Info) Description 06/10/2024 11:00 AM EDT Clinical Support [facility] [address] [place] [address] 07/08/2024 9:00 AM EDT Office Visit [facility] [address] [place] [address] Lola Maloney FNP [address] [place] [address] documented as of this encounter Visit Diagnoses Not on filedocumented in this encounter Additional Health Concerns Assessment Noted Time PHQ-9 Depression Total Score: 24 025 11:08 AM EDT documented as of this encounter Care Teams Plastic Roller Relationship Specialty Start Date End Date [place] [address] PCP - General Family Medicine 05/25/24 documented as of this encounter
--- OUTSIDE RECORDS SUMMARY | 2024-05-25 18:57 | XMS_ITS | Encounter Summary ---
Author Organization [employer] Address [address] [place] [address] [place] [address] Care Team Providers Care Complex Commercial Litigation Paralegal Name Role Phone Nelda Meredith SQL REPORT WRITER Primary Care Provider [phone] Tyesha Alanis MD Primary Care Pro vider Sana Pinon MD Primary Care Provider [phone] [facility] Primary Care Provider [phone] Reason for Visit * Reason Onset Date Comments Appointment Request 06/18/2022 Encounter Details Date Type Department Care Team (Late st Contact Info) Description 06/18/2022 Telephone [facility] [address] [place] [address] Nelda Meredith FNP [address] [place] [address] Dept [place] [address] Appointment Request Social History Tobacco Use Types Packs/Day Years Used Date Smoking Tobacco: Every Day Cigarettes Alcohol Use Standard Drinks/Week Comments Yes 16 (1 standard drink = 0.6 oz pu re alcohol) everyday for the last 10 yrs Depression Answer Date Recorded Patient Health Questionnaire-9 Score 16 06/01/2022 Depression Answer Date Recorded Patient Health Questionnaire-2 Score 4 06/01/2022 Comments Unknown Sex and Gender Information Value Date Recorded Sex Assigned at Female 12/18/2021 10:17 AM EDT Legal Sex Female 10:17 AM EDT Gender Identity Female 12/18/2021 10:17 AM EDT Sexual Orientation Straight 12/18/2021 10 :17 AM EDT COVID-19 Exposure Response Date Recorded In the last 10 days, have yo u been in contact with someone who was confirmed or suspected to have Coronavirus/COVID-19? No / Unsure 06/01/2022 2:23 PM EDT documented as of this encounter Miscellaneous Notes * Telephone Encounter - Brittany Horn - 06/18/2022 1:37 PM EDT Tc from pt requesting to reschedule a f/u appt missed on 06/15/22 , marketing writer attempted to schedule however zero availability. Pt is requesting a call back. Please contact at [phone] documented in this encounter Plan of Treatment Upcoming Encounters Date Type Department Care Team (Late st Contact Info) Description 06/10/2024 11:00 AM EDT Clinical Support [address] [address] 07/08/2024 9:00 AM EDT Office Visit [address] [address] [address] [address] documented as of this encounter Visit Diagnoses Not on filedocumented in this encounter Additional Health Concerns Assessment Noted Time PHQ-9 Depression Total Score: 16 023 2:55 PM EDT documented as of this encounter Care Teams Complex Commercial Litigation Paralegal Relationship Specialty Start Date End Date Nelda Meredith FNP PCP - General Family Medicine 10/18/21 10/28/22 Tyesha Alanis MD [address] [place] [address] PCP - General Internal Medicine 10/29/22 12/18/22 Sana Pinon MD [address] [place] [address] PCP - General Family Medicine 12/19/22 08/29/23 SycamoreLola FNP [address] [place] [address] PCP - General Family Medicine 05/25/24 documented as of this encounter
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
--- OUTSIDE RECORDS SUMMARY | 2024-05-25 18:57 | XMS_ITS | Encounter Summary ---
Author Organization [employer] Address [address] [facility] 7t [place] [address] Care Team Providers Care Waist Presser Name Role Phone Amara Lola SITE COORDINATOR Primary Care Provider [phone] Reason for Visit * Reason Comments Med Refill Encounter Details Date Type Department Care Team ([facility] Contact Info) Description 01/07/2024 Refill [facility] [address] [place] [address] Sana Pinon MD [address] [place] [address] Gastroesophageal reflux disease without esophagitis Social History Tobacco Use Types Packs/Day Years [...] Description 06/10/2024 11:00 AM EDT Clinical Support [facility] [address] [place] [address] 07/08/2024 9:00 AM EDT Office Visit [facility] [address] [place] [address] Lola Maloney FNP [address] [place] [address] documented as of this encounter Visit Diagnoses Diagnosis Gastroesophageal reflux disease without esophagitis Esophageal reflux documented in this encounter Additional Health Concerns Assessment Noted Time PHQ-9 Depression Total Score: 16 023 2:55 PM EDT documented as of this encounter Care Teams Waist Presser Relationship Specialty Start Date End Date Lola Maloney FNP [address] [place] [address] PCP - General Family Medicine 05/25/24 documented as of this encounter
--- OUTSIDE RECORDS SUMMARY | 2024-05-25 18:57 | XMS_ITS | Encounter Summary ---
Author Organization [employer] Address [address] [facility] 7t [place] [address] Care Team Providers Care Living Manager Name Role Phone Amara Lola COMPUTER TESTER Primary Care Provider [phone] Reason for Visit * Reason Comments Med Refill Encounter Details Date Type Department Care Team ([facility] Contact Info) Description 09/03/2023 Refill [facility] [address] [place], [place] [phone] Sana Pinon MD [address] [place] [address] Social History Tobacco Use Types Packs/Day Years [...] Description 06/10/2024 11:00 AM EDT Clinical Support [facility] [address] [place] [address] 07/08/2024 9:00 AM EDT Office Visit [facility] [address] [place] [address] Lola Maloney FNP [address] [place] [address] documented as of this encounter Visit Diagnoses Not on filedocumented in this encounter Additional Health Concerns Assessment Noted Time PHQ-9 Depression Total Score: 16 023 2:55 PM EDT documented as of this encounter Care Teams Living Manager Relationship Specialty Start Date End Date Lola Maloney FNP [address] [place] [address] PCP - General Family Medicine 05/25/24 documented as of this encounter
--- OUTSIDE RECORDS SUMMARY | 2024-05-25 18:57 | XMS_ITS | Encounter Summary ---
Author Organization [employer] Address [address] [facility] 7t [place] [address] Care Team Providers Care Peanut Sheller Name Role Phone Lola Maloney ROAD CROSSING GUARD Primary Care Provider [phone] Encounter Details Date Type Department Care Team (Latest Contact Info) Description 05/25/2024 Travel Social History Tobacco Use Types Packs/Day Years [...] with others, in a hotel, in a fci, living outside on the street, on a [...] Description 06/10/2024 11:00 AM EDT Clinical Support [address] [address] 07/08/2024 9:00 AM EDT Office Visit [facility] [address] [place] [address] Lola Maloney FNP [address] [place] [address] documented as of this encounter Visit Diagnoses Not on filedocumented in this encounter Additional Health Concerns Assessment Noted Time PHQ-9 Depression Total Score: 24 025 11:08 AM EDT documented as of this encounter Care Teams Peanut Sheller Relationship Specialty Start Date End Date Lola Maloney FNP [address] [place] [address] PCP - General Family Medicine 05/25/24 documented as of this encounter
--- OUTSIDE RECORDS SUMMARY | 2024-05-25 18:57 | XMS_ITS | Encounter Summary ---
Author Organization [employer] Address [address] [facility] 7t [place] [address] Care Team Providers Care Fountain Operator Name Role Phone Amara Lola JOB CHANGE CREW MEMBER Primary Care Provider [phone] Reason for Visit * Reason Comments Med Refill Encounter Details Date Type Department Care Team ([facility] st Contact Info) Description 04/03/2024 Refill [facility] [address] [place] [address] Sana Pinon MD [address] [place] [address] Gastroesophageal reflux disease without esophagitis; Depression, unspecified depression type Social History Tobacco Use Types Packs/Day Years [...] Description 06/10/2024 11:00 AM EDT Clinical Support [address] [address] 07/08/2024 9:00 AM EDT Office Visit [address] [address] Lola Maloney FNP [address] [place] [address] documented as of this encounter Visit Diagnoses Diagnosis Gastroesophageal reflux disease without esophagitis Esophageal reflux Depression, unspecified depression type documented in this encounter Additional Health Concerns Assessment Noted Time PHQ-9 Depression Total Score: 16 023 2:55 PM EDT documented as of this encounter Care Teams Fountain Operator Relationship Specialty Start Date End Date Lola Maloney FNP [address] [place] [address] PCP - General Family Medicine 05/25/24 documented as of this encounter
--- OUTSIDE RECORDS SUMMARY | 2024-05-25 18:57 | XMS_ITS | Encounter Summary ---
Author Organization [employer] Address [address] [place] [address] 7t [place] [address] Care Team Providers Care Application Security Specialist Name Role Phone Lola Maloney Primary Care Provider [phone] Reason for Referral * Consultation (Routine) - Authorized Specialty Diagnoses / Procedures Referred By Melba sosa Referred To Contact Optometry Diagnoses Hypertensive urgency Blurred vision, bilateral Lola Maloney FNP [address] [place] [address] Phone: tel: fax: [facility] [address] [place] [address] Phone: tel: fax: Referral ID Status Reason Start Date Expiration Date Visits Requested Visits Authorized [id number] Authorized Consult and Treat 05/25/2024 05/25/2025 1 1 Reason for Visit * Reason Comments Establish Care Encounter Details Date Type Department Care Team (Late st Contact Info) Description 05/25/2024 10:45 AM EDT Office Visit [facility] [address] [place], [place] [phone] Lola Maloney FNP [address] [place] [address] Hypertensive urgency (Primary Dx); Essential hypertension; Substance use disorder; Blurred vision, bilateral; Vaginal discharge; Dyspepsia Social History Tobacco Use Types Packs/Day Years [...] with others, in a hotel, in a residential, living outside on the street, on a [...] AM EDT documented as of this encounter Last Filed Vital Signs Vital Sign Reading Time Taken Comments Blood Pressure 174/111 05/25/2024 12:39 PM EDT Pulse 100 05/25/2024 11:07 AM EDT Temperature 36.6 ??C (97.8 ??F) 05/25/2024 11:07 AM E DT Respiratory Rate 20 05/25/2024 11:07 AM EDT Oxygen Saturation - - Inhaled Oxygen Concentration - - Weight 70.4 kg (155 lb 3.2 oz) 05/25/2024 11:07 AM EDT Height 162.6 cm (5' 4 ) 05/25/2024 11:07 AM EDT Body Mass Index 26.64 05/25/2024 11:07 AM EDT documented in this encounter Plan of Treatment Upcoming Encounters Date Type Department Care Team (Late st Contact Info) Description 06/10/2024 11:00 AM EDT Clinical Support [address] [address] 07/08/2024 9:00 AM EDT Office Visit [address] [address] [facility], [facility] [address] [place] [address] Scheduled Orders Name Type Priority Associated Diagnoses Orde r Schedule Comprehensive Metabolic Panel Lab Routine Essential hypertension Expected: 05/25/2024 (Approximate), Expires: 05/25/2025 CBC auto differential Lab Routine Substance use disorder Expected: 05/25/2024 (Approximate), Expires: 05/25/2025 Hepatitis A,B,C Profile Lab Routine Substance use disorder Expected: 05/25/2024, Expires: 05/25/2025 Hepatitis C Viral RNA, Quantitative, Real-Time PCR Lab Routine Substance use disorder Expected: 05/25/2024 (Approximate), Expires: 05/25/2025 HIV-1/2 Antigen and Antibodies, Fourth Generation, with Reflexes Lab Routine Substance use disorder Expected: 05/25/2024 (Approximate), Expires: 05/25/2025 Vitamin B12/Folate, Serum Panel Lab Routine Substance use disorder Expected: 05/25/2024, Expires: 05/25/2025 Syphilis Screen Lab Routine Substance use disorder Expected: 05/25/2024, Expires: 05/25/2025 Bacterial Vaginosis Panel Microbiology Routine Vaginal discharge Ordered: 05/25/2024 Chlamydia/N. Gonorrhoeae RNA, TMA, Urogenitial Microbiology Routine Vaginal discharge Ordered: 05/25/2024 Scheduled Referrals Name Type Priority Associated Diagnoses Orde r Schedule Referral to [facility] Outpatient Referral Routine Hypertensive urgency Blurred vision, bilateral Expected: 05/25/2024 (Approximate), Expires: 05/25/2025 documented as of this encounter Visit Diagnoses Diagnosis Hypertensive urgency- Primary Essential hypertension Unspecified essential hypertension Substance use disorder Blurred vision, bilateral Other specified visual disturbances Vaginal discharge Leukorrhea, not specified as infective Dyspepsia Dyspepsia and other specified disorders of function of stomach documented in this encounter Administered Medications Inactive Administered Medications - up to 3 most recent administrations Medication Order MAR Action Action Date Dose Rate Site cloNIDine (Catapres) tablet 0.1 mg 0.1 mg, Oral, Once, On Sat05/25/24 at 1145, For 1 doseIndications:Hypertensive urgency Given 05/25/2024 12:00 PM EDT 0.1 mg documented in this encounter Additional Health Concerns Assessment Noted Time PHQ-9 Depression Total Score: 24 025 11:08 AM EDT documented as of this encounter Care Teams Application Security Specialist Relationship Specialty Start Date End Date Lola Maloney FNP [address] [place] [address] PCP - General Family Medicine 05/25/24 documented as of this encounter
[2024-05-26 06:37] LABS: CT PCR NOT DETECTED (Not Detect.); NG PCR NOT DETECTED (Not Detect.)
[2024-05-26 11:04] LABS: Bacterial Vaginosis PCR POSITIVE (Negative); Candida Group PCR NOT DETECTED (Not Detect); Candida glab krusei PCR NOT DETECTED (Not Detect); Trichomonas vaginalis PCR DETECTED (Not Detect)
== END 2024-05-25 17:57 | disposition home or self-care (01) ==
LOC: HO.HHCLNP 17:56
PROVIDERS: Visit Provider Registered Nurse
DX: N89.8 Other specified noninflammatory disorders of vagina (principal); F19.90 Other psychoactive substance use, unspecified, uncomplicated
CPT/HCPCS: 81515; 87491; 87591

== ENCOUNTER 2024-09-02 13:45 | Outpatient (REF) | payer MEDICAID, SELFPAY ==
--- OUTSIDE RECORDS SUMMARY | 2024-09-02 14:38 | XMS_ITS | Encounter Summary ---
Author Organization [employer] Address [address] [place] [address] [address] [place] [address] Care Team Providers Care Dry Chain Worker Name Role Phone [place] [facility] Primary Care Provider [phone] Reason for Visit * Reason Onset Date Comments No Show 09/02/2024 Encounter Details Date Type Department Care Team ([facility] st Contact Info) Description 09/02/2024 Telephone [facility] [address] [place] [address] [facility] [address] [place] [address] No Show Social History Tobacco Use Types Packs/Day Years Used Date Smoking Tobacco: Every Day Cigarettes Alcohol Use Standard Drinks/Week Comments Yes 16 (1 standard drink = 0.6 oz pu re alcohol) everyday for the last 10 yrs Alcohol Answer Date Recorded How often do you have a drink containing alcohol ? 4 09/02/2024 How many drinks containing a lcohol do you have on a typical day when you are drinking? 2 09/02/2024 How often do you have six or more drinks on one occasion? 3 09/02/2024 Depression Answer Date Recorded Patient Health Questionnaire-9 Score 17 09/02/2024 Patient Health Questionnaire-9 Score 17 09/02/2024 Last PHQ-9: Questionnaire Data Not on file 0 09/02/2024 Housing Stability Answer Date Recorded What is [...] Date Recorded Patient Health Questionnaire-2 Score 6 09/02/2024 Internet Access Answer Date Recorded Internet Access Q1 I am not sure 05/25/2024 Internet Access Q2 Not on file 05/25/2024 Comments Unknown Sex and Gender Information Value Date Recorded Sex Assigned at Female 12/18/2021 10:17 AM EDT Legal Sex Female 10:17 AM EDT Gender Identity Female 12/18/2021 10:17 AM EDT Sexual Orientation Straight 12/18/2021 10 :17 AM EDT documented as of this encounter Miscellaneous Notes * Telephone Encounter - Michelle Villarreal - 09/02/2024 10:38 AM EDT Pt no showed to appt on 09/02/24. documented in this encounter Plan of Treatment Upcoming Encounters Date Type Department Care Team (Late st Contact Info) Description 09/11/2024 2:00 PM EDT Office Visit [facility] [address] [place], [place] [phone] Clarke Houser MD [address] [place] [address] 09/24/2024 11:15 AM EDT Office Visit [facility] [address] [place], [place] [phone] Yoselyn Dunn, OD [address] [place] [address] 10/05/2024 11:15 AM EDT Office Visit [facility] [address] [place] [address] Lola Maloney FNP [address] [place] [address] documented as of this encounter Visit Diagnoses Not on filedocumented in this encounter Additional Health Concerns Assessment Noted Time PHQ-9 Depression Total Score: 17 025 11:57 AM EDT documented as of this encounter Care Teams Dry Chain Worker Relationship Specialty Start Date End Date Lola Maloney FNP [address] [place] [address] PCP - General Family Medicine 05/25/24 documented as of this encounter
[2024-09-02 16:02] LABS: MANUAL DIFF FLAG NO
[2024-09-02 16:10] LABS: Hematocrit 34.6 % (37.0-47.0); Hemoglobin 11.7 g/dl (12.0-16.0); Imm Gran Abs Auto 0.01 X10*3/uL (0.00-0.03); Imm Gran Pct Auto 0.2 % (0.0-0.4); Lymphocytes Absolute Auto 3.3 X10*3/uL (1.2-4.9); Mean Corpuscular HGB Conc 33.8 g/dl (31.0-35.0); Mean Corpuscular Hemoglobin 35.9 pg (27.0-33.0); Mean Corpuscular Volume 106.1 fL (80.0-98.0); NRBC Abs Auto 0.000 X10*3/uL (0.0-0.012); NRBC Pct Auto 0.0 /100WBC (0.0-0.2); Platelet Count 200 X10*3/uL (160-400); Red Blood Count 3.26 X10*6/uL (4.20-5.50); White Blood Count 6.5 X10*3/uL (4.8-10.8)
[2024-09-02 16:37] LABS: Alanine Aminotransferase 26 U/L (0-31); Albumin Level 3.4 g/dL (3.5-5.0); Alkaline Phosphatase 126 U/L (39-117); Anion Gap 12 (12-20); Aspartate Amino Transferase 150 U/L (5-31); Blood Urea Nitrogen 6 mg/dL (9-16); Calcium 8.7 mg/dL (8.4-10.2); Carbon Dioxide 27 mmol/L (22-29); Chloride 102 mmol/L (96-108); Estimated Glomerular Filt Rate > 60; Potassium 3.6 mmol/L (3.3-5.1); Sodium 137 mmol/L (135-145); Total Protein 7.1 g/dL (6.5-8.0)
[2024-09-02 17:00] LABS: Folate 2.9 ng/mL (> or = 4.0); Vitamin B12 207 pg/mL (200-900)
[2024-09-03 04:46] LABS: Syphilis Screen Nonreactive (Nonreactive)
[2024-09-03 05:25] LABS: HBS Num1 493.61 mIU/mL (0-7.99); HBc Num1 0.14 S/CO (0.00-0.79); HBsAGNum1 0.37 S/CO (0.00-0.99); HIV Num 1 0.08 S/CO (0.00-0.99); Hepatitis A Antibody IgM 0.34 Index (0-0.79); Hepatitis B Surface Antigen Negative (Negative); ~HepC Num1 13.85 S/CO (0.00-0.79); ~Hepatitis A Antibody IgM Nonreactive (Nonreactive); ~Hepatitis B Surface Antibody REACTIVE (Nonreactive); ~Hepatitis C Antibody Reactive (Nonreactive)
[2024-09-04 04:08] LABS: ~Hepatitis A Antibody IgG 7.23 S/CO (0.00-0.99)
[2024-09-06 09:49] LABS: HCV Log PCR <1.18 NOT DETECTED Log IU/mL (NOT DETECTED); HepC Viral Load <15 NOT DETECTED IU/mL (NOT DETECTED)
== END 2024-09-02 13:46 | disposition home or self-care (01) ==
LOC: HO.HHCL 13:45
PROVIDERS: PCP Registered Nurse; Visit Provider Registered Nurse
DX: Z11.3 Encounter for screening for infections with a predominantly sexual mode of transmission (principal); Z11.4 Encounter for screening for human immunodeficiency virus [HIV]; F19.90 Other psychoactive substance use, unspecified, uncomplicated; I10 Essential (primary) hypertension
CPT/HCPCS: 36415; 80053; 82607; 82746; 85025; 86704; 86706; 86708; 86709; 86780; 86803; 87340; 87389; 87522